=== PATIENT | female | born 1945 | race Caucasian/White ===

== ENCOUNTER → 2024-10-13 | Outpatient (CLI) | payer OTHER, SELFPAY | END | disposition home or self-care (01) | LOC: SWHD 14:56 | PROVIDERS: PCP Family Medicine; Referring Provider Family Medicine; Visit Provider Student in an Organized Health Care Education/Training Program | DX: L97.821 Non-pressure chronic ulcer of other part of left lower leg limited to breakdown of skin (principal); L97.521 Non-pressure chronic ulcer of other part of left foot limited to breakdown of skin; L97.511 Non-pressure chronic ulcer of other part of right foot limited to breakdown of skin; S90.822A Blister (nonthermal), left foot, initial encounter; S91.104A Unspecified open wound of right lesser toe(s) without damage to nail, initial encounter; X58.XXXA Exposure to other specified factors, initial encounter; E11.621 Type 2 diabetes mellitus with foot ulcer; E11.22 Type 2 diabetes mellitus with diabetic chronic kidney disease; N18.9 Chronic kidney disease, unspecified; M25.551 Pain in right hip | CPT/HCPCS: 97597; 11042; A9270 ==

== ENCOUNTER → 2024-10-21 | Outpatient (CLI) | payer OTHER, SELFPAY | END | disposition home or self-care (01) | LOC: SWHD 14:10 | PROVIDERS: PCP Family Medicine; Referring Provider Family Medicine; Visit Provider Student in an Organized Health Care Education/Training Program | DX: L97.521 Non-pressure chronic ulcer of other part of left foot limited to breakdown of skin (principal); L97.511 Non-pressure chronic ulcer of other part of right foot limited to breakdown of skin; S90.822A Blister (nonthermal), left foot, initial encounter; S91.104A Unspecified open wound of right lesser toe(s) without damage to nail, initial encounter; X58.XXXA Exposure to other specified factors, initial encounter; E11.621 Type 2 diabetes mellitus with foot ulcer; E11.22 Type 2 diabetes mellitus with diabetic chronic kidney disease; N18.9 Chronic kidney disease, unspecified; M25.551 Pain in right hip | CPT/HCPCS: 97597; A9270 ==

== ENCOUNTER 2024-10-26 08:19 | Day surgery (SDC) | payer OTHER, SELFPAY ==
[2024-10-26] VITALS (18 sets, daily range): BP systolic 114–147; BP diastolic 75–95; PULSE 61–76; RESP 14–22; TEMP 36.3–36.6; O2SAT 90–96; BMI 22.7
--- NOTE | 2024-10-26 07:00 | EKG_ITS ---
[facility] Test Date: 2024-10-26 Pat Name: SAMUEL DALAL Department: Room: - Gender: Female Donation Specialist: FIDEL : 1945 Requested By: Veronica Rodriguez Order Number: [id number] Reading MD: Veronica Rodriguez Measurements Intervals [place] Rate: 71 P: 97 NC: 175 QRS: -52 QRSD: 165 T: 101 QT: 489 QTc: 534 Interpretive Statements SINUS RHYTHM WITH OCCASIONAL SUPRAVENTRICULAR PREMATURE COMPLEXES MARKED LEFT AXIS DEVIATION LEFT BUNDLE BRANCH BLOCK Compared to ECG 06/25/2024 20:24:14 Left-axis deviation now present Left bundle-branch block now present Atrial-paced complex(es) or rhythm no longer present Ventricular-paced complex(es) or rhythm no longer present /store/S0/[id number].pdf
[2024-10-26 08:44] LABS: Basophils % (Auto) 1 % (0-2.5); Eosinophils # (Auto) 0.1 Thou/mm3 (0.0-0.5); Eosinophils % (Auto) 1 % (0-10); Hematocrit 40.6 % (36.0-46.0); Immature Granulocytes % (Auto) 2 % (0-0); Immature Granulocytes Auto 0.15 Thou/mm3 (0.00-0.00); Lymphocytes # (Auto) 0.7 Thou/mm3 (1.0-4.8); Lymphocytes % (Auto) 8 % (10-50); Mean Corpuscular Hemoglobin 25.6 pg (25.0-35.0); Mean Corpuscular Volume 80 fL (80-100); Monocytes # (Auto) 0.6 Thou/mm3 (0.0-0.8); Monocytes % (Auto) 7 % (0-12); Neutrophils # (Auto) 6.7 Thou/mm3 (1.8-7.7); Neutrophils % (Auto) 81 % (37-80); Nucleated Red Blood Cell % 0 /100 WBC (0); Platelet Count 262 Thou/mm3 (140-440); RDW Standard Deviation 61.5 fL (36.4-46.3); Red Blood Count 5.08 Miln/mm3 (4.00-5.20); White Blood Count 8.3 Thou/mm3 (3.6-11.0)
[2024-10-26 08:59] LABS: Anion Gap 8 (7-16); BUN/Creatinine Ratio 33 Ratio (12-20); Blood Urea Nitrogen 40 mg/dL (9-23); Calcium 9.9 mg/dL (8.3-10.6); Carbon Dioxide 27.4 mMol/L (20.0-31.0); Chloride 98 mMol/L (98-107); Creatinine (Component) 1.2 mg/dL (0.6-1.3); Glucose 317 mg/dL (74-106); Osmolality,Calculated 288 (275-295); Potassium 4.4 mMol/L (3.4-5.1); Sodium 133 mMol/L (136-145); eGFR 47 See Note
[2024-10-26] MEDS: SODIUM CHLORIDE 0.45 % 500 ML 50 ML IV (12:00)
[2024-10-26] MEDS: FUROSEMIDE INJ 10 MG/ML 4ML VIAL 40 MG IVP (14:15)
--- NOTE | 2024-10-26 15:15 | PC.NURSE ---
FEMORAL SHEATH (VENOUS ACCESS) TO THE RIGHT GROIN AREA REMOVED ABOUT 1500. MANUAL PRESSURE APPLIED FOR ABOUT 15 MINUTES UNTIL HEMOSTASIS ACHIEVED. PATIENT TOLERATED PROCEDURE WELL WITHOUT COMPLICATIONS. SURGICAL SITE ASYMPTOMATIC, NO ACTIVE BLEEDING, NO HEMATOMA NOTED ON RIGHT GROIN AREA. RIGHT FEMORAL PULSE NOTED WITH NO CHANGES IN STRENGHT AND QUALITY (normal upon palpation), RIGHT DORSALIS PEDIS PULSE NOTED WITH NO CHANGES STRENGHT AND QUALITY (weak with Doppler). DISTAL CAPPILARRY REFILL >3 SECONDS (Baseline, Right Toes). NO NOTED CHANGES IN COLOR OR TEMPERATURE ON RIGHT LOWER EXTREMITY. PATIENT DENIES GENERAL AND LOCALIZED PAIN. NO TINGLING OR NUMBNESS FELT TO RIGHT LOWER EXTREMITY. SURGICAL SITE COVERED WITH 4x4 GAUZE AND TAGADERM DRESSING. WILL CONTINUE TO MONITOR.
--- NOTE | 2024-10-26 16:00 | PC.NURSE ---
TR band removed at this time. Surgical site has a bruised about 3 cm x 1.5 cm with no changes, no active bleeding, no hematoma noted on right upper extremity or around the surgical site. Capillary refill < 3 seconds. no noted changes in color or temperature on right upper extremity. Patient denies general and localized pain, no loss in sensation, no tingling or numbness felt to right upper extremity. Tagaderm and Coban wrap applied. Will continue to monitor
--- NOTE | 2024-10-26 16:46 | PC.NURSE ---
SURGICAL SITE TO RIGHT GROIN AREA REMAINS ASYMPTOMATIC, NO ACTIVE BLEEDING, NO HEMATOMA NOTED ON RIGHT GROIN AREA. RIGHT FEMORAL PULSE NOTED WITH NO CHANGES IN STRENGHT AND QUALITY UPON PALPATION (normal), RIGHT DORSALIS PEDIS PULSE NOTED WITH NO CHANGES STRENGHT AND QUALITY (weak with Doppler). DISTAL CAPPILARRY REFILL >3 SECONDS (Baseline, Right Toes). NO NOTED CHANGES IN COLOR OR TEMPERATURE ON RIGHT LOWER EXTREMITY. PATIENT DENIES GENERAL AND LOCALIZED PAIN. NO TINGLING OR NUMBNESS FELT TO RIGHT LOWER EXTREMITY. NO LOSS IN SENSATION TO RIGHT LOWER EXTEREMITY SURGICAL SITE COVERED WITH GAUZE AND TAGADERM DRESSING, WHICH REMAINS IN PLACE, DRY, AND INTACT.
--- NOTE | 2024-10-27 14:07 | ESOP_ITS ---
RE: SAMUEL DALAL : 1945 DATE OF OPERATION: 10/27/2024 PROCEDURE PERFORMED: 1. Diagnostic right and left heart cardiac catheterization, selective coronary angiogram, left ventricular angiogram, CPT code 17886. 2. PCI, PTCA, and stent placement of the left circumflex artery, placement of drug-eluting stent, 3.0 x 20 mm Synergy stent, post stent deployment angioplasty using a 3.5 mm noncompliant NC balloon, pre-procedure stenosis 90%, post procedure stenosis 0%, pre-procedure BROWN flow was 3, post procedure BROWN flow 3, CPT code 03445. 3. Conscious sedation 1-hour duration. 4. TR band application. DIAGNOSIS: Coronary artery disease, abnormal nuclear stress test, ischemic cardiomyopathy, congestive heart failure. HISTORY AND INDICATIONS: The patient is a 78-year-old female with a longstanding history of cardiomyopathy, congestive heart failure, initially nonischemic cardiomyopathy, ICD implantation, was doing well until recently she is having chest pain, shortness of breath, recommended to have cardiac clearance for surgery and nuclear scan was performed showed evidence of inferolateral ischemia. Coronary angiogram was recommended to assess if the patient is a candidate for coronary intervention and revascularization. DESCRIPTION OF PROCEDURE: The patient brought to cardiac catheterization laboratory where she was given 2 mg of versed, 50 mcg of fentanyl for sedation. Right radial approach taken for left heart catheterization, right femoral approach for right heart catheterization. Right femoral vein was cannulated via a micropuncture technique and a 7-Tunisian venous sheath was introduced. Right radial artery cannulated with micropuncture technique after 1% Xylocaine 6-Tunisian glide justin introduced. Right heart catheterization was performed with [place]-Jessica catheter. Right heart pressure is measured. Left heart catheterization is performed by TIG4 5-Tunisian diagnostic catheter. Left ventricular angiogram performed subsequently. Selective right and left coronary angiogram performed by FR4 diagnostic catheter and TIG4 diagnostic catheter. Diagnostic procedure showed following findings: Right coronary artery is large and dominant showed mild irregularities. No significant stenosis. Left coronary system; left main coronary artery is normal. Left anterior descending artery showed mild to moderate plaque with 20% to 30% narrowing. Left circumflex artery showed evidence of 90% stenosis of the proximal left circumflex artery sequenced lesion. Distal circumflex showed mild left atherosclerotic plaque. Following the diagnostic procedure: Intervention was undertaken. Right heart catheterization showed following findings: Right atrial pressure was found to be mildly elevated at 14 mmHg, right ventricular pressure 56/15 mmHg, pulmonary artery pressure 57/24 mmHg, mean pressure 37 mmHg, pulmonary artery wedge pressure 18 mmHg. Left ventricular pressure 124/4, EDP 13 mmHg, aortic pressure 125/64. No gradient across the aortic valve. Left ventricular angiogram showed evidence of severe global hypokinesis, ejection fraction of 30%. Following diagnostic procedures; intervention was undertaken for single vessel CAD. The patient was given IV heparin, total of 5000 units. ACT was therapeutic. Aspirin and Brilinta loading dose was given, 180 mg Brilinta, 325 aspirin given. Proceed with PCI. A 6-Tunisian FL4 guiding catheter used to cannulate left main coronary artery and a 0.014 Runthrough guidewire was used to cross the lesion in the proximal circumflex artery successfully. Initially, pre-dilation was done with 2.5 mm x 12 mm Emerge balloon. Subsequently, 3.0 x 20 mm Synergy stent was deployed in the proximal left circumflex artery with two inflations and subsequently 3.5 mm noncompliant balloon. 3.5 x 12 balloon was used to dilate the proximal three-quarters of stent with 3.5 mm stent. 3.5 NC balloon was 15 atmosphere pressure. Final angiogram showed widely patent left circumflex artery. No residual stenosis. Pre-procedure BROWN flow was 3. SUMMARY OF FINDINGS: 1. Ischemic cardiomyopathy with severe LV dysfunction. Ejection fraction 30%. 2. Congestive heart failure with moderate pulmonary hypertension, group 2 due to heart failure. 3. Biventricular failure with elevated right atrial pressure pressures. 4. Single vessel coronary artery disease with evidence of 90% stenosis left circumflex artery, underwent successful PCI stent and placement of drug-eluting. Pre-procedure stenosis 90%, post procedure 0%, pre-procedure BRWON flow 3, post-procedure BROWN flow 3. COMPLICATIONS: None. ESTIMATED BLOOD LOSS: Less than 5 mL. PLAN: The patient will be given dual antiplatelet drug therapy, aspirin and Brilinta for the next 12 months. Surgery cannot be done for at least 6 months. DT: 12:47:50 TT: 13:47:00 Ref: [id number] - TID: [id number] [facility]
== END 2024-10-26 17:21 | disposition home or self-care (01) ==
PROVIDERS: PCP Nurse Practitioner Family; Referring Provider Internal Medicine Cardiovascular Disease; Visit Provider Internal Medicine Cardiovascular Disease
PROC: (CPT 93460; principal; 2024-10-26 11:30)
DX: I25.118 Atherosclerotic heart disease of native coronary artery with other forms of angina pectoris (principal); I25.5 Ischemic cardiomyopathy; I27.22 Pulmonary hypertension due to left heart disease; I42.8 Other cardiomyopathies; I50.82 Biventricular heart failure; I11.0 Hypertensive heart disease with heart failure; E78.5 Hyperlipidemia, unspecified; E11.9 Type 2 diabetes mellitus without complications; Z01.810 Encounter for preprocedural cardiovascular examination
CPT/HCPCS: 93460; C9600; 36415; 80048; 85025; 85347; 85610; 85730; 93005; 99152; 99153; A4649; C1725; C1769; C1874; C1887; C1894; J0171; J0461; J1643; J1940; J2250; J2310; J2371; J3010; J3490; J7040; Q9967; A9270; J1644; J2305

== ENCOUNTER 2024-10-29 13:24 | Outpatient (AMB) | payer OTHER, SELFPAY ==
--- NOTE | 2024-10-29 13:30 | PD.RESCLINIC ---
Allergies/Meds Allergies & Medications Allergies Penicillins Allergy (Severe, Verified 10/29/24 13:30) UNKNOWN Sulfa (Sulfonamide Antibiotics) Allergy (Severe, Verified 10/29/24 13:30) Swelling Medication Reconciliation donepezil 10 mg tablet 10 mg PO QPM 09/05/21 [History Confirmed 10/29/24] metformin 500 mg tablet 500 mg PO BID 09/05/21 [History Confirmed 10/29/24] metoprolol succinate 25 mg tablet,extended release 24 hr 25 mg PO QDAY 02/27/24 [History Confirmed 10/29/24] amiodarone 200 mg tablet 200 mg PO BID 30 days #60 tabs 04/30/24 [Rx Confirmed 10/29/24] magnesium oxide 400 mg (241.3 mg magnesium) tablet 400 mg PO QDAY 30 days #30 tabs 04/30/24 [Rx Confirmed 10/29/24] doxycycline monohydrate 100 mg capsule 100 mg PO BID #14 caps 06/25/24 [Rx Confirmed 10/29/24] aspirin 81 mg chewable tablet 81 mg PO QDAY #30 tabs 10/26/24 [Rx Confirmed 10/29/24] ciprofloxacin HCl 500 mg tablet 500 mg PO BID 10/26/24 [History Confirmed 10/29/24] nitrofurantoin 100 mg capsule 100 mg PO BID 10/26/24 [History Confirmed 10/29/24] spironolactone 25 mg tablet 25 mg PO QDAY 10/26/24 [History Confirmed 10/29/24] ticagrelor 90 mg tablet (Brilinta) 90 mg PO BID #60 tabs 10/26/24 [Rx Confirmed 10/29/24] hydrocodone 7.5 mg-acetaminophen 325 mg tablet 1 tab PO BID PRN pain 30 days #60 tabs 10/29/24 [Rx] MA Intake Visit Data Collection New Patient or Established: Established Patient (seen at [facility] within 3 years) Seen by Clinical Staff ONLY (RN/MA): No Pain Present Currently: Yes Pain Location: Generalized Pain scale:: 3 Pain Scale Used: Marquez-Addison/Numerical PCP or OBGYN visit in last 3 months: Yes Smoking Status Smoking Status: Former smoker For Televisit only Telemed Video/Phone Visit: Yes Verbal consent obtained for Telemed visit?: Yes Verbal Consent witness name: ROSIE Telemed Video/Phone visit w/Clinical Staff: 21-30 min Immunization / Flu Flu Vaccine in the Last 12 Months: Yes Flu Vaccine Exclusion Criteria: Already Received Past Medical History Past Medical History NEUROLOGIC: Positive Dementia; Negative Neurological Disorders CARDIAC: Positive Cardiac Disorders, Cardiac Arrhythmia, Atrial Fibrillation, Heart Murmur, Coronary Artery Disease, Peripheral Vascular Disease, Hypercholesterolemia, Congestive Heart Failure, Cardiomyopathy and Hypertension RESPIRATORY: Positive Chronic Obstructive Pulmonary Disease (COPD), Smoking, Smoking Cessation Counseling and Tobacco Use; Negative Asthma GASTROINTESTINAL: Negative Gastrointestinal Disorders GENITOURINARY: Negative Genitourinary Disorders or Renal Disease ENDOCRINE: Positive Endocrine Disorders and Diabetes Mellitus Type 2 (Metformin); Negative Diabetes Mellitus Type 1 HEMATOLOGIC: Negative Blood Disorders or Sickle Cell Disease Surgical History SURGICAL: Positive Pacemaker, Ear Surgery, Tonsillectomy and Hysterectomy; Negative Cardiac Surgery, Endocrine Surgery, Abdominal Surgery, Nephrectomy or Neurologic Surgery Social History SMOKING STATUS: Smoking status: Former smoker PACK YEARS: Pack-Years: 65 SECOND HAND EXPOSURE: second hand exposure: No ALCOHOL: Alcohol Intake: Former ALCOHOL FREQUENCY: Alcohol Intake Frequency: holidays/special occasions only HOUSING: Housing: Apartment LIVES WITH: Lives With: Alone Patient Kathie Royal Social History Living Situation History Housing: Apartment Housing Other:: pt lives alone Tobacco History Smoking Status: Former smoker Packs per Day: 2 Pack-Years: 65 Second Hand Smoke Exposure: No Alcohol History Alcohol Intake: Former Alcohol Intake Frequency: holidays/special occasions only Substance Use History Substance Use: meth Review of Systems Report any current symptoms Only answer those that you have currently: Past Medical History Past Medical History Have you ever been diagnosed with any of the following: Neurological Problems Dementia: Yes Cardiology Problems Cardiac Arrhythmia: Yes Atrial Fibrillation: Yes Heart Murmur: Yes Coronary Artery Disease: Yes Peripheral Vascular Disease: Yes Hypercholesterolemia: Yes Congestive Heart Failure: Yes Cardiomyopathy: Yes Hypertension: Yes Respiratory Problems Chronic Obstructive Pulmonary Disease (COPD): Yes Asthma: No Smoking: Yes Smoking Cessation Counseling: Yes Tobacco Use: Yes Genital/Urinary Problems Renal Disease: No Endocrine Problems Diabetes Mellitus Type 1: No Diabetes Mellitus Type 2: Yes (Metformin) Blood Problems Sickle Cell Disease: No Surgical History Hysterectomy: Yes Pacemaker: Yes History of Present Illness HPI Narrative 78y/o F w/ osteoarthritis, chronic T4 compression fracture with kyphosis was initially scheduled for an in-person appointment, however due to vehicle problems, patient changed visit to a tele visit. She consented for the televisit. Patient requested refill of norco for chronic back pain. CURES was checked and patient had her last refill on 09/28/2024. Additionally, patient reported she underwent cardiac cath on 10/27, with PURVI placed. She was discharged on ASA/Brilinta and will follow with cardiology outpatient. For ROS, patient endorses SOB, which is chronic, and she is stable on 2L home O2. Also reports skin rash that is resolving. Remainder of ROS was negative. Review of Systems Review of Systems Systems Reviewed: All systems reviewed, normal except as documented Objective/Exam Narrative Physical exam: televisit Assessment & Plan Diagnosis / Problem List (1) Chronic back pain greater than 3 months duration: Status: Chronic Assessment & Plan: Patient requesting refill of norco for chronic back pain Plan: Checked CURES Refilled norco 7.5mg 1 tab BID prn Plan Refilled norco Additional Assessment Attending note: I, Matthew Wilkes MD, attest that I was physically present for the bloom portions of the service completed via telehealth, and I reviewed and discussed the case with the resident and agree with the resident's plans of care as documented above. Telehealth visit. Refill of chronic narcotic pain medication given for chronic back pain. Patient has been on this dose for some time. No evidence of overuse or abuse. Cures report reviewed. Prescription refilled today. Matthew Wilkes MD Advanced Care Planning Advance care planning discussed with:: patient Physician Billing Established Patient Established Patient: E/M Level 2-CPT 59780 Office Procedures [facility] Level of Care Nursing/Assessment Patient Status: Established Patient Nursing Assessment/Reassessment: Medication Reconciliation and Update PMH in EMR Coordination of Care: Complex Care and Chronic Disease 1-5, Education Complex Pt/Fam and Staff clarify orders Established Patient Charge Established Patient Point Assignment: 70 Telehealth Telemed Phone/Video with patient at home & Dr,PA,MORTGAGE LOAN CLOSER: Yes
== END 2024-10-29 15:23 | disposition home or self-care (01) ==
LOC: HODAHC 13:24
PROVIDERS: Supervising Provider Internal Medicine; Visit Provider Student in an Organized Health Care Education/Training Program
DX: M54.9 Dorsalgia, unspecified (principal); G89.29 Other chronic pain; Z76.0 Encounter for issue of repeat prescription
CPT/HCPCS: 99212; G0463

== ENCOUNTER → 2024-10-30 | Outpatient (CLI) | payer OTHER, SELFPAY | END | disposition home or self-care (01) | LOC: SWHD 12:13 | PROVIDERS: PCP Family Medicine; Referring Provider Family Medicine; Visit Provider Surgery | DX: I87.333 Chronic venous hypertension (idiopathic) with ulcer and inflammation of bilateral lower extremity (principal); L97.821 Non-pressure chronic ulcer of other part of left lower leg limited to breakdown of skin; L97.521 Non-pressure chronic ulcer of other part of left foot limited to breakdown of skin; L97.516 Non-pressure chronic ulcer of other part of right foot with bone involvement without evidence of necrosis; S90.822A Blister (nonthermal), left foot, initial encounter; S91.104A Unspecified open wound of right lesser toe(s) without damage to nail, initial encounter; X58.XXXA Exposure to other specified factors, initial encounter; E11.621 Type 2 diabetes mellitus with foot ulcer; E11.22 Type 2 diabetes mellitus with diabetic chronic kidney disease; N18.2 Chronic kidney disease, stage 2 (mild); M25.551 Pain in right hip | CPT/HCPCS: 11042; A9270 ==

== ENCOUNTER 2025-01-06 05:33 | Emergency (ER) | payer OTHER, SELFPAY ==
[2025-01-06 05:41] VITALS: BP 119/66; PULSE 78; RESP 19; TEMP 36.6; O2SAT 95
[2025-01-06 05:42] VITALS: BMI 17.5
[2025-01-06 05:50] VITALS: PULSE 74; RESP 18; O2SAT 97
--- NOTE | 2025-01-06 06:26 | EDNOTE_ITS ---
<Statement entered by Stephanie Rocha MD - 01/14/25 19:35> I, Stephanie Rocha MD, have reviewed the history, exam, and assessment of the patient. I have evaluated the patient independently and agree with the plan of care documented by [ ]. All diagnostic studies were reviewed and discussed. I confirm the diagnosis as documented by the Resident. I was present during the Medical Decision Making for this patient. The patient's plan of care was created between myself and the Resident and consistent with our discussion of the patient's case. ED Epistaxis RME/HPI General Chief complaint: General [facility] Complain Stated complaint: NOSE BLEED Time Seen by Provider: 01/06/25 06:18 Arrival date/time: 01/06/25 05:33 RME / HPI RME / HPI Narrative: Patient is a 79-year-old female with past medical history of primary hypertension, diabetes mellitus type II, hyperlipidemia, 4cm thoracic aortic aneurysm, dilated cardiomyopathy HFrEF 25% s/p defibrillator followed by cardiology Dr. Pitts, & chronic atrial fibrillation on Eliquis, COPD/asthma on home O2 PRN 2/2 chronic tobacco use (>30 yrs), NIDDM2, dementia, osteoarthritis, chronic T4 compression fracture with kyphosis, left fibular fracture (March 2023), left hip fracture s/p replacement, chronic tremor, & anxiety/depression who presents today from [facility] due to epistaxis starting today. Patient reports she has daily problems with nose bleed but usually they are able to be controlled. Patient completely denies any manipulation or the nares, blowing of the nose, falls, or trauma. Denies lightheadedness, dizziness. Patient works with physical therapy at her facility and is ambulatory with a walker with assistance but spends most of the time in bed. Patient states she was recently hospitalized at [facility] for pneumonia and was discharged to [facility]. complaint: epistaxis Location: bilateral nostril Onset (ago): hour(s) Duration: constant Context: aspirin use and other anticoagulant use Treatment prior to arrival: nose pinching and stuffed nose with tissue Related Data Home Medications ?Medication ?Instructions ?Recorded ?Confirmed donepezil 10 mg tablet 10 mg PO QPM 09/05/21 metformin 500 mg tablet 500 mg PO BID 09/05/2110/29 Held on 10/26/24. Instructions: Resume on 10/28/24. Resume this medication on this date at your usual time metoprolol succinate 25 mg 25 mg PO QDAY 02/27/2404/17 tablet,extended release 24 hr ciprofloxacin HCl 500 mg tablet 500 mg PO BID 10/26/24 10/29/24 nitrofurantoin 100 mg capsule 100 mg PO BID 10/26/24 1 12/30/23 spironolactone 25 mg tablet 25 mg PO QDAY 10/26/2404/17 Previous Rx's ?Medication ?Instructions ?Recorded amiodarone 200 mg tablet 200 mg PO BID 30 days #60 ta bs 04/30/24 magnesium oxide 400 mg (241.3 mg 400 mg PO QDAY 30 day s #30 tabs 04/30/24 magnesium) tablet doxycycline monohydrate 100 mg 100 mg PO BID #14 caps 06/25/24 capsule aspirin 81 mg chewable tablet 81 mg PO QDAY #30 tabs 1 12/27/23 ticagrelor 90 mg tablet (Brilinta) 90 mg PO BID #60 ta bs 10/26/24 Allergies Allergy/AdvReac Type Severity Reaction Status Date / Time Penicillins Allergy Severe UNKNOWN Verified 10/29/24 13:30 Sulfa (Sulfonamide Allergy Severe Swelling Verified 10/29/24 13:30 Antibiotics) Review of Systems Review of Systems Systems Reviewed: All systems reviewed, normal except as documented Past Medical History Past Medical History Comments PMH COMMENT: Past Medical History: Hypertension, type 2 diabetes, hyperlipidemia, 4 cm thoracic aortic aneurysm, dilated cardiomyopathy HFrEF 25% s/p defibrillator followed by cardiology Dr. Pitts, & chronic atrial fibrillation on Eliquis, COPD/asthma on home O2 PRN 2/2 chronic tobacco use (>30 yrs), NIDDM2, dementia, osteoarthritis, chronic T4 compression fracture with kyphosis, left fibular fracture (March 2023), left hip fracture s/p replacement, chronic tremor, & anxiety/depression Family History: Negative for known bleeding disorders Surgical History: Left hip replacement, defibrillator placement, tonsillectomy, hysterectomy, ear surgery Social History: Former smoker with 64 pack year history quit in the past year, denies current alcohol use, former meth use denies current recreational drug use Current Medications: Unable to confirm at this time, did not receive medication list from [facility] [facility] Allergies: Penicillins, sulfa antibiotics - swelling ED Exam Narrative Physical exam: Physical Exam General: Awake and in no acute distress, thin and malnourished elderly female. Conversational and non-toxic appearing. HEENT: Normocephalic, atraumatic, mucous membranes moist. Dry blood in back of oropharynx. Nares packed with gauze and oozing blood. Heart: Regular rate and rhythm, no murmurs. Lungs: Clear to auscultation with no wheezing or crackles. Abdomen: Soft, nondistended, nontender, positive bowel sounds. ?No guarding or rebound tenderness. Neurologic: Alert and oriented x3, no gross neurological deficit, and patient able to move all 4 extremities. Extremities: No edema. Skin: No rash or ecchymoses. Course Quality Measures none Orders Category Date Time Status Partial Thromboplastin Time Stat Lab 01/06/25 06:40 Completed Prothrombin Time with INR Stat Lab 01/06/25 06:40 Completed Oxymetazoline [place] 0.05% [Afrin Nasal Philip] Med 01/06/25 06:44 Discontinued See Dose Instructions NASAL X1 ONE Vital Signs Vital signs: Vital Signs Temperature 97.9 F 01/06/25 05:41 Pulse Rate 78 01/06/25 05:41 Respiratory Rate 19 01/06/25 05:41 Blood Pressure 119/66 01/06/25 05:41 Pulse Oximetry (%) 95 01/06/25 05:41 Oxygen Delivery Method Room Air 01/06/25 05:41 Epistaxis MDM Narrative MDM Narrative:: Patient was instructed to hold pressure just below the bridge of the nose. Patient was administered Afrin in order to induce vasoconstriction. Gauze was packed into the nares until bleeding stopped, then it was retracted after the patient was observed for a few hours. Patient data External records reviewed:: [facility] previous records and [facility] records Clinical information provided by:: patient Social determinants that could affect healthcare access:: housing Patient has the following chronic illnesses:: As above How is presenting disease/condition affected by chronic disease/condition?: caused by Evaluation data The following diagnostics were reviewed and interpreted by me:: lab results Lab and/or radiology exams considered but not ordered:: Ordered Interpretation Summary: PT PTT and INR were ordered to ensure no coagulopathy which came normal range. Medications / Prescriptions Medications or Prescriptions considered but not ordered:: Given Medication administrations:: Medication Administration History Discontinued Medications Oxymetazoline HCl (Oxymetazoline [place] 0.05% 15 Ml Btl) 0 spray NASAL X1 ONE Stop: 01/06/25 06:45 Last Admin: 01/06/25 06:57 Dose: 1 spray Documented By: SF Given Consultations Consultation(s) initiated? (list below): No Diagnosis Epistaxis Differential Diagnosis: anterior epistaxis and posterior epistaxis Most likely diagnosis given after review of the tests above:: Epistaxis Admission Indicated Admission indicated?: not indicated Explain why admission is indicated or not indicated:: Bleeding was controlled Admission Request Was there a request for admission?: No Disposition Plan Disposition Plan: Discharge Discharge Attestation Discharge Attestation: The patient and all family members were given an opportunity to ask questions and understood the discharge instructions. Discharge instructions specifically effects, indications for sooner follow up or return to the emergency department, and the expected course of current diagnosis. Patient condition: Stable Discharge Plan Plan Patient Disposition: [facility] ([place]) Disposition Comment: Back to [facility] Patient condition on transfer: Stable Prescriptions/Referrals Prescriptions/Med Rec: No Action metformin 500 mg tablet 500 mg PO BID Patient Comments: TAKE 1 TABLET BY MOUTH TWICE DAILY donepezil 10 mg Tablet 10 mg PO QPM metoprolol succinate 25 mg tablet extended release 24 hr 25 mg PO QDAY Patient Comments: TAKE ONE TABLET BY MOUTH WITH FOOD EVERY DAY FOR BLOOD PRESSURE nitrofurantoin 100 mg Capsule 100 mg PO BID Rx Instructions: must administer with a meal/food ciprofloxacin HCl 500 mg Tablet 500 mg PO BID spironolactone 25 mg Tablet 25 mg PO QDAY aspirin 81 mg Tablet,Chewable 81 mg PO QDAY Qty: 30 5RF Brilinta 90 mg Tablet 90 mg PO BID Qty: 60 5RF magnesium oxide 400 mg (241.3 mg magnesium) tablet 400 mg PO QDAY 30 Days Qty: 30 2RF amiodarone 200 mg tablet 200 mg PO BID 30 Days Qty: 60 2RF doxycycline monohydrate 100 mg capsule 100 mg PO BID Qty: 14 0RF Referrals: Nancy Obando [facility] [Primary Care Provider] - In 1 week Problem List Clinical Impression: Epistaxis Patient/Caregiver Discharge Instructions Discharge Activity: as per physical therapy and activity as tolerated Education Materials: Nosebleed, ED Epistaxis (Adult) Additional Instructions: Ella was seen in the ED for nosebleed, or epistaxis. Interventions done include having the patient hold pressure just beneath the nasal bridge and gauze packing of the nares until bleeding stopped. She was given a dose of Afrin (oxymetolazone) nasal spray to induce vasocontriction and help reduce bleeding which appeared to help. This spray can be used if the bleeding recurs. Please ensure the area below the nasal bridge has pressure held as well. Ella should try to avoid blowing her nose, coughing, or any manual manipulation of the nose as much as possible today. Try using warm humidified air to prevent further episodes of epistaxis and keep the nares moisturized in the future. Return to the ED if recurrent epistaxis occurs without remission. Print Language: Chinese Stand Alone Forms: [facility] Info., Patient Portal Info Letter
[2025-01-06 06:46] VITALS: BP 112/58; PULSE 103; RESP 17; TEMP 36.6; O2SAT 93
[2025-01-06] MEDS: OXYMETAZOLINE NAS SPRY 0.05% 15 ML BTL NASAL (06:57)
[2025-01-06 07:25] LABS: Partial Thromboplastin Time 22.6 Seconds (22.0-36.0); Prothrombin Time 10.7 Seconds (9.0-12.2)
[2025-01-06 10:44] VITALS: BP 125/73; PULSE 70; RESP 20; TEMP 36.8; O2SAT 96
--- NOTE | 2025-01-06 11:05 | PC.CC ---
ASWLisa was consulted regarding transportation back to [facility] for patient. ASW arranging transportation for patient back to [facility] via [facility].
[2025-01-06 12:23] VITALS: BP 136/69; PULSE 74; RESP 26; TEMP 36.3; O2SAT 95
--- NOTE | 2025-01-06 12:38 | PC.CC ---
ASWLisa was contacted by [facility] who reports that patient cannot be picked up and transported until 1900. ASW obtained an FRIDA for [facility] to arrange transportation. FRIDA was signed by template cutter Sara.
--- NOTE | 2025-01-06 14:25 | PC.NURSE ---
REPORT GIVEN TO LUIS GHOSH AT [facility].
== END 2025-01-06 14:27 | disposition skilled nursing facility (03) ==
PROVIDERS: Student in an Organized Health Care Education/Training Program; Emergency Provider Emergency Medicine; PCP Nurse Practitioner Family
DX: R04.0 Epistaxis (principal); I11.0 Hypertensive heart disease with heart failure; I42.0 Dilated cardiomyopathy; I50.20 Unspecified systolic (congestive) heart failure; E11.9 Type 2 diabetes mellitus without complications; E78.5 Hyperlipidemia, unspecified; Z99.81 Dependence on supplemental oxygen; F03.90 Unspecified dementia, unspecified severity, without behavioral disturbance, psychotic disturbance, mood disturbance, and anxiety
CPT/HCPCS: 36415; 85610; 85730; 99283; A9270

== ENCOUNTER 2025-02-01 11:14 | Emergency (ER) | payer OTHER, SELFPAY ==
--- NOTE | 2025-02-01 11:29 | PD.EDWOUND ---
ED Wound/Laceration-RME/HPI General Chief Complaint: Wound/Laceration Stated Complaint: RIGHT LEG PAIN/LACERATION Time Seen by Provider: 02/01/25 11:20 Arrival date/time: 02/01/25 11:14 RME / HPI RME / HPI narrative: 79 yo female patient [facility] for skin tear to right kim. States she was transferring from the bed to the wheelchair when she somehow hit her right kim. Denies other injuries. Otherwise well. On Brilinta. Received Tylenol. Requesting more pain medicine. Related Data Home Medications ?Medication ?Instructions ?Recorded ?Confirmed donepezil 10 mg tablet 10 mg PO QPM 09/05/21 10/29/24 metformin 500 mg tablet 500 mg PO BID 09/05/21 10/29/24 Held on 10/26/24. Instructions: Resume on 10/28/24. Resume this medication on this date at your usual time metoprolol succinate 25 mg 25 mg PO QDAY 02/27/24 10/29/24 tablet,extended release 24 hr ciprofloxacin HCl 500 mg tablet 500 mg PO BID 10/26/24 10/29/24 nitrofurantoin 100 mg capsule 100 mg PO BID 10/26/24 10/29/24 spironolactone 25 mg tablet 25 mg PO QDAY 10/26/24 10/29/24 Previous Rx's ?Medication ?Instructions ?Recorded amiodarone 200 mg tablet 200 mg PO BID 30 days #60 tabs 04/30/24 magnesium oxide 400 mg (241.3 mg 400 mg PO QDAY 30 days #30 tabs 04/30/24 magnesium) tablet doxycycline monohydrate 100 mg 100 mg PO BID #14 caps 06/25/24 capsule aspirin 81 mg chewable tablet 81 mg PO QDAY #30 tabs 10/26/24 ticagrelor 90 mg tablet (Brilinta) 90 mg PO BID #60 tabs 10/26/24 Allergies Allergy/AdvReac Type Severity Reaction Status Date / Time Penicillins Allergy Severe UNKNOWN Verified 02/01/25 11:46 Sulfa (Sulfonamide Allergy Severe Swelling Verified 02/01/25 11:46 Antibiotics) Review of Systems Review of Systems Systems Reviewed: All systems reviewed, normal except as documented ED Exam Narrative Physical exam: GENERAL APPEARANCE: alert and oriented x 4, well-developed, well-nourished, no acute distress HEENT: Normocephalic, atraumatic LUNGS: No increased work of breathing, no respiratory distress HEART: Good peripheral perfusion ABDOMEN: non distended EXTREMITIES: 3.5 cm curvilinear laceration right kim; mild surrounding edema, no erythema, clean NEUROLOGIC: awake; alert and oriented x4; cranial nerves II-XII grossly intact PSYCHIATRIC: appropriate mood and affect SKIN: warm, dry, normal color; no rashes Course Quality Measures none Orders Category Date Time Status Irrigate Wound NOW Care 02/01/25 11:43 Active Set Up Suture Tray NOW Care 02/01/25 11:43 Active Wound Care NOW Care 02/01/25 11:43 Active Diet Cardiac Diet 02/01/25 Lunch Active HYDROcodone*/APAP 5/325 [[place]lin 5/325] Med 02/01/25 11:45 Discontinued 1 tab PO X1 ONE Lidocaine 1% 20 ml [Xylocaine 1% 20 ML] Med 02/01/25 11:42 Discontinued 10 ml INFL X1 ONE Late Tray Request Routine Oth 02/01/25 12:39 Active Vital Signs Vital signs: Vital Signs Temperature 97.7 F 02/01/25 11:33 Pulse Rate 85 02/01/25 11:33 Respiratory Rate 16 02/01/25 11:33 Blood Pressure 97/63 02/01/25 11:33 Pulse Oximetry (%) 98 02/01/25 11:33 Oxygen Delivery Method Room Air 02/01/25 11:33 Procedures -ED Laceration Laceration 1: Site: lower extremity Side (If applicable): right Size (cm): 4 Description: linear, flap and other (curvilinear) Depth: simple, single layer Local Anesthetic: lidocaine 1% Amount of anesthesia used (mL): 6 Pre-repair: wound explored, irrigated extensively and deep structures intact Skin layer closed with: other (ethilon) Size (cm): 3-0 Number of sutures: 1 Technique: running Wound / Laceration MDM Narrative MDM Narrative:: Laceration repair tolerated well. No complications. EBL 1mL. Patient data External records reviewed:: [facility] previous records Clinical information provided by:: patient Social determinants that could affect healthcare access:: none Patient has the following chronic illnesses:: HTN, COPD, PAD How is presenting disease/condition affected by chronic disease/condition?: uneffected by Evaluation data The following diagnostics were reviewed and interpreted by me:: other (specify) (none) Lab and/or radiology exams considered but not ordered:: none Interpretation Summary: none Medications / Prescriptions Medications or Prescriptions considered but not ordered:: none Medication administrations:: Medication Administration History Discontinued Medications Hydrocodone Bitart/Acetaminophen (Hydrocodone/Apap 5/325 Tablet) 1 tab PO X1 ONE Stop: 02/01/25 11:46 Last Admin: 02/01/25 11:58 Dose: 1 tab Documented By: HERIBERTO Lidocaine HCl (Lidocaine Hcl 1% 20 Ml Vial) 10 ml INFL X1 ONE Stop: 02/01/25 11:43 Last Admin: 02/01/25 11:59 Dose: 10 ml Documented By: HERIBERTO as above Consultations Consultation(s) initiated? (list below): No Diagnosis Wound Differential Diagnosis: laceration, abrasion and avulsion of skin Most likely diagnosis given after review of the tests above:: laceration Admission Indicated Admission indicated?: not indicated Admission Request Was there a request for admission?: No Disposition Plan Disposition Plan: Discharge Discharge Attestation Discharge Attestation: The patient and all family members were given an opportunity to ask questions and understood the discharge instructions. Discharge instructions specifically effects, indications for sooner follow up or return to the emergency department, and the expected course of current diagnosis. Patient condition: Stable Discharge Plan Plan Patient Disposition: Xfer Skilled Nsg Fac (SNF) Disposition Comment: [facility] Prescriptions/Referrals Prescriptions/Med Rec: No Action metformin 500 mg tablet 500 mg PO BID Patient Comments: TAKE 1 TABLET BY MOUTH TWICE DAILY donepezil 10 mg Tablet 10 mg PO QPM metoprolol succinate 25 mg tablet extended release 24 hr 25 mg PO QDAY Patient Comments: TAKE ONE TABLET BY MOUTH WITH FOOD EVERY DAY FOR BLOOD PRESSURE nitrofurantoin 100 mg Capsule 100 mg PO BID Rx Instructions: must administer with a meal/food ciprofloxacin HCl 500 mg Tablet 500 mg PO BID spironolactone 25 mg Tablet 25 mg PO QDAY aspirin 81 mg Tablet,Chewable 81 mg PO QDAY Qty: 30 5RF Brilinta 90 mg Tablet 90 mg PO BID Qty: 60 5RF magnesium oxide 400 mg (241.3 mg magnesium) tablet 400 mg PO QDAY 30 Days Qty: 30 2RF amiodarone 200 mg tablet 200 mg PO BID 30 Days Qty: 60 2RF doxycycline monohydrate 100 mg capsule 100 mg PO BID Qty: 14 0RF Referrals: Nancy Obando, [facility] [Primary Care Provider] - In 1 week Problem List Clinical Impression: Laceration of skin of right lower leg, Suture of skin wound Patient/Caregiver Discharge Instructions Education Materials: ED Laceration: All Closures, ED Scar Tips to Minimize Additional Instructions: Follow up with your doctor for wound recheck in 1-2 days and suture removal in 5-7 days. Print Language: Irish Stand Alone Forms: [facility] Info., Patient Portal Info Letter
[2025-02-01 11:33] VITALS: BP 97/63; PULSE 85; RESP 16; TEMP 36.5; O2SAT 98
[2025-02-01 11:36] VITALS: PULSE 101; RESP 18; O2SAT 97; BMI 18.7
[2025-02-01] MEDS: HYDROcodone/APAP 5/325 TABLET 1 TAB PO (11:58)
[2025-02-01] MEDS: LIDOCAINE HCL 1% 20 ML VIAL 10 ML INFL (11:59)
--- NOTE | 2025-02-01 12:40 | PC.NURSE ---
Patient states pain 9/10. Informed ER provider and received verbal order for 0.5mg hydromorphone.
--- NOTE | 2025-02-01 13:25 | PC.RT ---
Addendum entered by María Corbin 02/01/25 13:36: SS contacted [facility] to confirm if they can receive patient, Teresa confirmed patient may return. SS pending transportation ETA from [facility]. Original Note: SS informed by SHANNA Cooper and AUGIE Burch patient is needing transportation to [facility]. SS contacted [facility] [phone] to arrange transportation, ETA pending.
== END 2025-02-01 16:20 | disposition skilled nursing facility (03) ==
PROVIDERS: Emergency Provider Emergency Medicine; PCP Nurse Practitioner Family
DX: S81.811A Laceration without foreign body, right lower leg, initial encounter (principal); W22.8XXA Striking against or struck by other objects, initial encounter; Y93.89 Activity, other specified; Y92.122 Bedroom in nursing home as the place of occurrence of the external cause
CPT/HCPCS: 12002; 99283; J3490; A9270

== ENCOUNTER → 2025-04-02 | Outpatient (CLI) | payer OTHER, SELFPAY ==
--- NOTE | 2025-04-02 13:54 | XR_ITS ---
Examination: PA lateral chest 2 views TECHNIQUE: Upright PA lateral chest 2 views Exam date and time: April 02, 2025 1411 hours INDICATIONS: Chest pain beginning one week ago. FINDINGS: Mild enlargement left ventricle Cardiac leads satisfactory position Accentuation basilar bronchovascular markings. Increased AP dimension chest IMPRESSION: COPD Basilar bronchitis pattern
--- NOTE | 2025-04-02 13:54 | XR_ITS ---
Examination: Ribs, bilateral, with PA chest, 3 views Technique: Chest PA, RIBS AP, RPO, 3 views Exam date and time: April 02, 2025 1408 hours INDICATIONS: Bilateral rib pain beginning one week ago Findings: Mild to moderate enlargement left ventricle Cardiac leads satisfactory position No pneumonia or pneumothorax Moderate osteopenia No acute rib fractures IMPRESSION: No pneumothorax or pneumonia No acute rib fractures
[2025-04-02 15:29] LABS: Basophils # (Auto) 0.1 Thou/mm3 (0.0-0.2); Basophils % (Auto) 1 % (0-2.5); Eosinophils # (Auto) 0.2 Thou/mm3 (0.0-0.5); Eosinophils % (Auto) 2 % (0-10); Hematocrit 34.3 % (36.0-46.0); Hemoglobin 11.5 g/dL (12.0-16.0); Immature Granulocytes % (Auto) 2 % (0-0); Immature Granulocytes Auto 0.19 Thou/mm3 (0.00-0.00); Lymphocytes # (Auto) 1.3 Thou/mm3 (1.0-4.8); Lymphocytes % (Auto) 11 % (10-50); Mean Corpuscular HGB Conc 33.5 g/dl (31.0-37.0); Mean Corpuscular Hemoglobin 29.1 pg (25.0-35.0); Mean Corpuscular Volume 87 fL (80-100); Monocytes % (Auto) 9 % (0-12); Neutrophils # (Auto) 8.8 Thou/mm3 (1.8-7.7); Neutrophils % (Auto) 76 % (37-80); Nucleated Red Blood Cell % 0 /100 WBC (0); Platelet Count 406 Thou/mm3 (140-440); RDW Standard Deviation 44.7 fL (36.4-46.3); Red Blood Count 3.95 Miln/mm3 (4.00-5.20); White Blood Count 11.5 Thou/mm3 (3.6-11.0)
[2025-04-02 15:39] LABS: Glucose Estimated Average 169 mg/dL (80-131); Hemoglobin A1C 7.5 % Hgb (4.8-6.0)
[2025-04-02 15:42] LABS: Alanine Aminotransferase 14 U/L (10-49); Albumin, Serum 4.1 gm/dL (3.4-4.8); Albumin/Globulin Ratio 1.5 (1.2-2.2); Alkaline Phosphatase 185 U/L (46-116); Anion Gap 7 (7-16); Aspartate Amino Transferase 16 U/L (0-34); BUN/Creatinine Ratio 28 Ratio (12-20); Bilirubin,Total 0.6 mg/dL (0.3-1.2); Blood Urea Nitrogen 33 mg/dL (9-23); Calcium 8.8 mg/dL (8.3-10.6); Calcium (Corrected) 8.8 mg/dL (8.5-10.1); Carbon Dioxide 24.4 mMol/L (20.0-31.0); Cardiac Risk Estimate 4.5 RATIO (3.7-5.6); Chloride 102 mMol/L (98-107); Cholesterol 167 mg/dL (132-200); Creatinine (Component) 1.2 mg/dL (0.6-1.3); Globulin 2.7 gm/dL (2.3-3.5); Glucose 266 mg/dL (74-106); HDL Cholesterol 37 mg/dL (40-60); LDL Cholesterol,Calculated 109 mg/dL (0-130); Osmolality,Calculated 282 (275-295); Potassium 4.1 mMol/L (3.4-5.1); Sodium 133 mMol/L (136-145); Thyroid Stimulating Hormone 3.12 uIU/mL (0.55-4.78); Total Protein 6.8 gm/dL (5.7-8.2); Triglycerides 107 mg/dL (30-150); eGFR 46 See Note
== END | disposition home or self-care (01) ==
LOC: CDIM 13:52 → COPL 14:21
PROVIDERS: Registered Nurse; PCP Nurse Practitioner Family; Referring Provider Nurse Practitioner Family; Visit Provider Radiology Diagnostic Radiology
DX: J44.9 Chronic obstructive pulmonary disease, unspecified (principal); R07.82 Intercostal pain; Z00.00 Encounter for general adult medical examination without abnormal findings; I12.9 Hypertensive chronic kidney disease with stage 1 through stage 4 chronic kidney disease, or unspecified chronic kidney disease; E11.22 Type 2 diabetes mellitus with diabetic chronic kidney disease; N18.9 Chronic kidney disease, unspecified
CPT/HCPCS: 36415; 71046; 71111; 80053; 80061; 81001; 82043; 82570; 83036; 84443; 85025

== ENCOUNTER 2025-04-08 14:52 | Outpatient (AMB) | payer OTHER, SELFPAY ==
[2025-04-08 15:09] VITALS: BP 133/79; PULSE 85; RESP 16; TEMP 36.6; O2SAT 95; BMI 20.5
--- NOTE | 2025-04-08 15:09 | PD.RESCLINIC ---
Vital Signs 04/08/25 15:09 Height 1.63 m Height Method Stated Weight 54.658 kg Weight Measurement Method Standing Scale BMI 20.5 BP 133/79 H Blood Pressure Source Automatic Cuff Blood Pressure Location Left Upper Arm Position Sitting Respiration 16 Pulse 85 Pulse Source Monitor Temp 98 F Temp Source Oral Pulse Oximetry (%) 95 Oxygen Delivery Method Room Air Allergies/Meds Allergies & Medications Allergies Penicillins Allergy (Severe, Verified 05/04/25 13:46) UNKNOWN Sulfa (Sulfonamide Antibiotics) Allergy (Severe, Verified 05/04/25 13:46) Swelling Medication Reconciliation donepezil 10 mg tablet 10 mg PO QPM 09/05/21 [History Confirmed 05/04/25] metformin 500 mg tablet 500 mg PO BID 09/05/21 [History Confirmed 04/08/25] metoprolol succinate 25 mg tablet,extended release 24 hr 25 mg PO QDAY 02/27/24 [History Confirmed 05/04/25] magnesium oxide 400 mg (241.3 mg magnesium) tablet 400 mg PO QDAY 30 days #30 tabs 04/30/24 [Rx Confirmed 05/05/25] aspirin 81 mg chewable tablet 81 mg PO QDAY #30 tabs 10/26/24 [Rx Confirmed 05/04/25] spironolactone 25 mg tablet 25 mg PO QDAY 10/26/24 [History Confirmed 04/08/25] ticagrelor 90 mg tablet (Brilinta) 90 mg PO BID #60 tabs 10/26/24 [Rx Confirmed 05/04/25] hydrocodone 7.5 mg-acetaminophen 325 mg tablet 1 tab PO BID PRN pain #60 tabs 04/08/25 [Rx Confirmed 05/04/25] amiodarone 100 mg tablet 100 mg PO DAILY Atrial fibrilation 05/04/25 [History Confirmed 05/04/25] furosemide 40 mg tablet 40 mg PO DAILY Heart failure 05/04/25 [History Confirmed 05/04/25] dapagliflozin propanediol 10 mg tablet 10 mg PO QDAY 05/05/25 [History Confirmed 05/05/25] ipratropium 0.5 mg-albuterol 3 mg (2.5 mg base)/3 mL nebulization soln 3 ml inhalation Q4H PRN shortness of breath or wheezing #90 mL 05/06/25 [Rx] hydrocodone 7.5 mg-acetaminophen 325 mg tablet 1 tab PO BID PRN pain #10 tabs 05/07/25 [Rx] MA Intake Visit Data Collection New Patient or Established: Established Patient (seen at [facility] within 3 years) Seen by Clinical Staff ONLY (RN/MA): No Reason for Visit:: FOLLOW UP Pain Present Currently: Yes Pain Location: Leg Pain scale:: 9 Pain Scale Used: Marquez-Addison/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 Required: No PCP or OBGYN visit in last 3 months: Yes Hx Now: No Do You Feel Safe at Home: Yes Authorities Contacted: N/A Smoking Status Smoking Status: Never smoker Immunization / Flu Flu Vaccine in the Last 12 Months: Yes Flu Vaccine Exclusion Criteria: No Exclusion Criteria Past Medical History Past Medical History NEUROLOGIC: Positive Dementia; Negative Neurological Disorders CARDIAC: Positive Cardiac Disorders, Cardiac Arrhythmia, Atrial Fibrillation, Heart Murmur, Coronary Artery Disease, Peripheral Vascular Disease, Hypercholesterolemia, Congestive Heart Failure, Cardiomyopathy and Hypertension RESPIRATORY: Positive Chronic Obstructive Pulmonary Disease (COPD), Smoking, Smoking Cessation Counseling and Tobacco Use; Negative Asthma GASTROINTESTINAL: Negative Gastrointestinal Disorders GENITOURINARY: Negative Genitourinary Disorders or Renal Disease ENDOCRINE: Positive Endocrine Disorders and Diabetes Mellitus Type 2 (Metformin); Negative Diabetes Mellitus Type 1 HEMATOLOGIC: Negative Blood Disorders or Sickle Cell Disease Surgical History SURGICAL: Positive Pacemaker, Ear Surgery, Tonsillectomy and Hysterectomy; Negative Cardiac Surgery, Endocrine Surgery, Abdominal Surgery, Nephrectomy or Neurologic Surgery Social History SMOKING STATUS: Smoking status: Never smoker PACK YEARS: Pack-Years: 65 SECOND HAND EXPOSURE: second hand exposure: No ALCOHOL: Alcohol Intake: Former ALCOHOL FREQUENCY: Alcohol Intake Frequency: holidays/special occasions only HOUSING: Housing: Apartment LIVES WITH: Lives With: Alone Patient Kathie Royal Social History Living Situation History Housing: Apartment Housing Other:: pt lives alone Tobacco History Smoking Status: Never smoker Packs per Day: 2 Pack-Years: 65 Second Hand Smoke Exposure: No Alcohol History Alcohol Intake: Former Alcohol Intake Frequency: holidays/special occasions only Substance Use History Substance Use: meth Domestic Abuse History Do You Feel Safe at Home: Yes Review of Systems Report any current symptoms Only answer those that you have currently: Past Medical History Past Medical History Have you ever been diagnosed with any of the following: Neurological Problems Dementia: Yes Cardiology Problems Cardiac Arrhythmia: Yes Atrial Fibrillation: Yes Heart Murmur: Yes Coronary Artery Disease: Yes Peripheral Vascular Disease: Yes Hypercholesterolemia: Yes Congestive Heart Failure: Yes Cardiomyopathy: Yes Hypertension: Yes Respiratory Problems Chronic Obstructive Pulmonary Disease (COPD): Yes Asthma: No Smoking: Yes Smoking Cessation Counseling: Yes Tobacco Use: Yes Genital/Urinary Problems Renal Disease: No Endocrine Problems Diabetes Mellitus Type 1: No Diabetes Mellitus Type 2: Yes (Metformin) Blood Problems Sickle Cell Disease: No Surgical History Hysterectomy: Yes Pacemaker: Yes History of Present Illness HPI Narrative Ms. Cordova is a 77-year-old demale with a medical history of osteoarthritis, chronic T4 compression fracture with kyphosis, left fibular fracture (March 2023), primary hypertension, diabetes mellitus type II, hyperlipidemia, 4cm thoracic aortic aneurysm, dilated cardiomyopathy HFrEF 25% s/p defibrillator followed by cardiology Dr. Pitts, & chronic atrial fibrillation on Eliquis, COPD/asthma on home O2 PRN 2/2 chronic tobacco use (>30 yrs), NIDDM2, dementia, chronic tremor, & anxiety/depression. 04/08: Pt is in office for follow up visit for pain management. Since pt's last visit in office in october 2024. Pt has had multiple hospitalizations. Pt was initially hospitalized at [facility] earlier this year due to recent fall causing hip fracture and underwent surgery. Pt also had NH and states her defibrillator was replaced during her hospitalization at [facility]. Pt was also in rehab post op for weeks. and was recently sent home less than a week ago. Pt has been experiencing a lot joint pain and is requesting a refill of her home [place] 7.5-325 mg for chronic back and shoulder pain secondary to osteoarthritis and chronic compression fracture. Pt is also requesting intra-articular kenalog injection in the right shoulder. she has no other complaints or concerns. Review of Systems Review of Systems Systems Reviewed: All systems reviewed, normal except as documented Objective/Exam Narrative Physical exam: GENERAL: A&Ox3 . Awake, cooperative and Not in acute distress, pt is in wheelchair NEURO: no neurologist deficit noted HEENT: Atraumatic, Normocephalic. mucous membranes moist. Eyes open, symmetrical, & clear HEART: Normal Heart Sounds LUNGS: Clear to auscultation with no wheezing or crackles. ABDOMEN: soft, non-distended, non-tender, bowel sounds heard, no guarding or rebound tenderness SKIN: No Rash, right kim laceration and ecchymoses noted EXTREMITIES: No edema, tenderness, able to move all 4 extremities Assessment & Plan Diagnosis / Problem List (1) Primary osteoarthritis, right shoulder: Status: Acute Assessment & Plan: -Pt has long time history of severe osteoarthritis in multiple joints and intermittently received steroids injections for some relief. Plan: -Pt received kenalog and lidocaine injection today (04/08) intra-articular right shoulder (2) Compression fracture of T4 vertebra: Status: Acute Qualifiers: Encounter type: subsequent encounter Fracture healing: with routine healing Qualified Code(s): S22.040D - Wedge compression fracture of fourth thoracic vertebra, subsequent encounter for fracture with routine healing Assessment & Plan: -Pt has chronic history of compression fracture of T4 vertebra and chronic pain due to significant arthritis in multiple joints. Plan: -refilled Pts [place] 7.5-325 -Checked CURES -Pt does not display signs of overuse or abuse Additional Assessment Attending note: I, Matthew Wilkes MD, attest that I was physically present for the bloom portions of the service and evaluated the patient with the resident and I reviewed and discussed the case with the resident and agree with the resident's findings and plans of care as documented above. Matthew Wilkes MD Advanced Care Planning Advance care planning discussed with:: patient Physician Billing Established Patient Established Patient: E/M Level 3-CPT 91234 Office Procedures [facility] Level of Care Nursing/Assessment Patient Status: Established Patient Nursing Assessment/Reassessment: Medication Reconciliation, Update PMH in EMR and Vital Signs Coordination of Care: Complex Care and Chronic Disease 1-5, Consent,records obtained, informed consent, Education Simp Pt/Fam, Results/Orders obtained and Staff clarify orders Established Patient Charge Established Patient Point Assignment: 90 Established Patient Point Charge: EP Level 3 (80-115) Ortho - Right Hip Bursa Inj Bursa Injection Note - this was a right shoulder injection Recommend right shoulder cortisone injection as patient would like to proceed with conservative treatment at this time. The risks and benefits of the procedure were reviewed with the patient and patient gave verbal consent to continue with the procedure. The risks discussed included infection, pain, and an increase in blood sugars. Procedure: performed by Dr. Velasquez under direct supervision of Dr. Wilkes. Using sterile technique the right shoulder was thoroughly prepped with alcohol prep, and approximately 1 cc of Kenalog 40 mg/mL and 1 cc of 1% Lidocaine was injected without resistance. The patient tolerated the procedure well.? [id number]
== END 2025-04-08 15:45 | disposition home or self-care (01) ==
LOC: HODAHC 14:52
PROVIDERS: Supervising Provider Internal Medicine
DX: M19.011 Primary osteoarthritis, right shoulder (principal); S22.040D Wedge compression fracture of fourth thoracic vertebra, subsequent encounter for fracture with routine healing; W19.XXXD Unspecified fall, subsequent encounter
CPT/HCPCS: 20610; 99213; J3301; G0463

== ENCOUNTER → 2025-04-08 | Outpatient (CLI) | payer OTHER, SELFPAY ==
[2025-04-08 15:04] LABS: Collection Type, Urine Clean Catch
[2025-04-08 17:08] LABS: Creatinine MALB Rnd Ur 72 mg/dL (30-125); Microalbumin Creat Ratio 96 mg/gCrea (<30); Microalbumin, Random Urine 69 mg/L (0-300)
[2025-04-08 17:10] LABS: Bilirubin,Urine Negative (Negative); Blood,Urine Negative (Negative); Clarity,Urine Clear (Clear/Hazy); Color,Urine Yellow (Lt Yel-Yel); Culture Indicated,Urine Not Indicated; Glucose, Urine 2+ (Negative); Hyaline Casts,Urine < 1 /hpf (0-1); Ketones,Urine Negative (Negative); Leukocyte Esterase,Urine Positive (Negative); Nitrite,Urine Negative (Negative); PH,Urine 5.5 (5.0-7.0); Protein,Urine Trace (Neg - Trace); RBC,Urine 5 /hpf (0-3); Specific Gravity,Urine 1.024 (1.001-1.035); Squamous Epithelial Cell,Urine 2 /hpf (0-5); Urobilinogen,Urine Negative mg/dL (0.0-1.0); WBC,Urine 9 /hpf (0-5)
== END | disposition home or self-care (01) ==
PROVIDERS: PCP Family Medicine; Referring Provider Nurse Practitioner Family; Visit Provider Nurse Practitioner Family
DX: Z00.00 Encounter for general adult medical examination without abnormal findings (principal); I10 Essential (primary) hypertension; E11.22 Type 2 diabetes mellitus with diabetic chronic kidney disease
CPT/HCPCS: 81001; 82043; 82570

== ENCOUNTER 2025-05-04 13:42 | Inpatient (IN) | payer OTHER, MEDICAID, MEDICARE, SELFPAY ==
[2025-05-04] VITALS (12 sets, daily range): BP systolic 116–163; BP diastolic 66–96; PULSE 71–105; RESP 18–86; TEMP 36.4–36.7; O2SAT 86–99; BMI 21.4
--- NOTE | 2025-05-04 14:13 | XR_ITS ---
Examination: Ribs, left, with PA chest, 5 views Technique: Chest PA, RIBS AP, RPO, LPO, AP coned lower ribs 5 views Exam date and time: May 04, 2025 1422 hours INDICATIONS: Right rib pain 5 days Findings: Mild to moderate enlargement cardiac contour Ectatic enlarged thoracic aorta Cardiac leads satisfactory position Prominent vascular congestion Subsegmental atelectasis right base Possible pneumonia in the left lung Severe osteopenia No acute rib fractures IMPRESSION: Mild chronic heart failure Suspicious for pneumonia left lung No pneumothorax No acute rib fractures
--- NOTE | 2025-05-04 14:14 | EKG_ITS ---
[facility] Test Date: 2025-05-04 Pat Name: SAMUEL DALAL Department: Room: - Gender: Female Manager Metrology: : 1945 Requested By: Julio Fuentes Order Number: [id number] Reading MD: Julio Fuentes Measurements Intervals [place] Rate: 72 P: [place]: QRS: -30 QRSD: 157 T: 134 QT: 469 QTc: 515 Interpretive Statements ATRIAL FIBRILLATION LEFT BUNDLE BRANCH BLOCK [120+ ms QRS DURATION, 80+ ms Q/S IN V1/V2, 85+ ms R IN I/aVL/V5/V6] Compared to ECG 10/26/2024 08:50:15 Sinus rhythm no longer present Left-axis deviation no longer present /store/S0/[id number].pdf
--- NOTE | 2025-05-04 14:14 | PD.EDRME ---
Rapid Medical Screening Exam RME Arrival date/time: 05/04/25 13:42 79-year-old female with a history of COPD, type 2 diabetes, hypertension presents to the emergency room with a chief complaint of shortness of breath and right-sided rib pain x 2 days I have greeted and performed a focused initial assessment of this patient. A comprehensive ED assessment and evaluation of the patient, analysis of all test results, and completion of the medical decision making process will be conducted by additional ED providers. Chief Complaint: Shortness of Breath/Dyspnea Vital signs: Vital Signs Pulse Oximetry (%) 86 L 05/04/25 13:51 Oxygen Delivery Method Room Air 05/04/25 13:51 Oxygen Flow Rate 2 05/04/25 13:51 Vital signs reviewed by provider: Yes
[2025-05-04] MEDS: ALBUTEROL RT 2.5 MG/3 ML NEBU INH ×2 (14:41→18:32)
[2025-05-04] MEDS: MethylPREDNISolone SOD SUCC 62.5 MG/ML 2ML VIAL 125 MG IVP (15:17)
[2025-05-04] MEDS: SODIUM CHLORIDE 0.9% 1000 ML 1,000 ML 50 ML IV (15:35)
[2025-05-04 15:40] LABS: Basophils % (Auto) 1 % (0-2.5); Eosinophils # (Auto) 0.2 Thou/mm3 (0.0-0.5); Eosinophils % (Auto) 3 % (0-10); Hematocrit 29.2 % (36.0-46.0); Hemoglobin 9.9 g/dL (12.0-16.0); Immature Granulocytes % (Auto) 1 % (0-0); Immature Granulocytes Auto 0.06 Thou/mm3 (0.00-0.00); Lymphocytes # (Auto) 0.8 Thou/mm3 (1.0-4.8); Lymphocytes % (Auto) 13 % (10-50); Mean Corpuscular HGB Conc 33.9 g/dl (31.0-37.0); Mean Corpuscular Volume 83 fL (80-100); Monocytes # (Auto) 0.4 Thou/mm3 (0.0-0.8); Monocytes % (Auto) 7 % (0-12); Neutrophils # (Auto) 4.9 Thou/mm3 (1.8-7.7); Neutrophils % (Auto) 76 % (37-80); Nucleated Red Blood Cell % 0 /100 WBC (0); Platelet Count 306 Thou/mm3 (140-440); RDW Standard Deviation 49.4 fL (36.4-46.3); Red Blood Count 3.54 Miln/mm3 (4.00-5.20); White Blood Count 6.5 Thou/mm3 (3.6-11.0)
[2025-05-04 15:56] LABS: Partial Thromboplastin Time 21.4 Seconds (22.0-36.0); Prothrombin Time 10.8 Seconds (9.0-12.2)
[2025-05-04 15:59] LABS: B-Type Natriuretic Peptide 769 pg/mL (0-100)
[2025-05-04 16:01] LABS: Alanine Aminotransferase 14 U/L (10-49); Albumin, Serum 4.2 gm/dL (3.4-4.8); Alkaline Phosphatase 325 U/L (46-116); Anion Gap 13 (7-16); BUN/Creatinine Ratio 32 Ratio (12-20); Bilirubin,Total 1.2 mg/dL (0.3-1.2); Blood Urea Nitrogen 29 mg/dL (9-23); Calcium 9.2 mg/dL (8.3-10.6); Calcium (Corrected) 9.2 mg/dL (8.5-10.1); Carbon Dioxide 21.2 mMol/L (20.0-31.0); Chloride 106 mMol/L (98-107); Creatinine (Component) 0.9 mg/dL (0.6-1.3); Estimated Creatinine Clearance 44.5 mL/min (>60); Globulin 2.1 gm/dL (2.3-3.5); Glucose 207 mg/dL (74-106); Magnesium 1.9 mg/dL (1.6-2.6); Osmolality,Calculated 291 (275-295); Potassium 4.4 mMol/L (3.4-5.1); Sodium 140 mMol/L (136-145); Total Protein 6.3 gm/dL (5.7-8.2); Troponin I 0.029 ng/mL (0.0-0.045); eGFR > 60 See Note
[2025-05-04 16:06] LABS: D-Dimer 1000 ng/mL (<600)
--- NOTE | 2025-05-04 16:15 | XR_ITS ---
Examination: CTA chest with intravenous contrast 2-D reconstructions 3-D reconstructions, vascular Date and time of exam: May 04, 2025 1720 hours INDICATIONS: Chest pain and right shoulder pain shortness of breath today, elevated d-dimer CTDI: vol (mGy) 6.64 DLP: (mGycm) 230 Technique: Multiple axial sections of the thorax have been obtained. 3 mm slice thickness, from below the hemidiaphragms to above the apices of the lungs. Mediastinal and lung density settings have been obtained. 2-D sagittal and coronal reconstructions. 3-D angiographic renderings, 3-D volume renderings, 3D post processing, vascular maximum intensity projections obtained. Contrast administered is 100 cc Isovue 370. Intravenous Low dose protocols were performed. One or more of the following dose reduction techniques were used; automated exposure control, adjustment of the mA and/or KV according to patient size, use of iterative reconstruction technique. Findings: Ascending thoracic aorta 4.2 cm No pulmonary artery filling defects Prominent vascular congestion Septal pulmonary edema throughout the lungs Mild to moderate enlargement cardiac contour No visualized liver or splenic lesion Gallstones Gallbladder wall appears mildly thickened No hydronephrosis IMPRESSION: [id number] CHF Negative for pulmonary artery emboli Mild aneurysmal dilatation ascending thoracic aorta Recommend hepatobiliary sonography follow-up to exclude calculus cholecystitis
[2025-05-04] MEDS: DOXYCYCLINE INJ 100 MG in SODIUM CHLORIDE 0.9% (POP) 100 ML IV (16:27)
[2025-05-04] MEDS: cefTRIAXone 2 GM in SODIUM CHLORIDE 0.9% (Popper) 50 ML IV (16:28)
--- NOTE | 2025-05-04 16:42 | EKG_ITS ---
[facility] Test Date: 2025-05-04 Pat Name: SAMUEL DALAL Department: Room: - Gender: Female Healthcare Facility Administrator: : 1945 Requested By: Oziel Child Order Number: [id number] Reading MD: Oziel Child Measurements Intervals [place] Rate: 91 P: GA: QRS: -37 QRSD: 157 T: 126 QT: 441 QTc: 544 Interpretive Statements ATRIAL FIBRILLATION WITH ABERRANT CONDUCTION OR VENTRICULAR PREMATURE COMPLEXES LEFT AXIS DEVIATION [QRS AXIS < -30] LEFT BUNDLE BRANCH BLOCK [120+ ms QRS DURATION, 80+ ms Q/S IN V1/V2, 85+ ms R IN I/aVL/V5/V6] Compared to ECG 05/04/2025 14:53:15 Ventricular premature complex(es) now present Aberrant conduction of supraventricular beat(s) now present Left-axis deviation now present /store/S0/[id number]/[id number].pdf
--- NOTE | 2025-05-04 17:13 | EDNOTE_ITS ---
ED SOB =RME/HPI General Chief Complaint: Shortness of Breath/Dyspnea Stated Complaint: DIFF BREATHING/RIGHT SHOULDER PAIN x5 DAYS, LOW O2 Time Seen by Provider: 05/04/25 14:25 Arrival date/time: 05/04/25 13:42 Limitations: no limitations RME / HPI RME / HPI Narrative: 05/04/25 13:42 79-year-old female with a history of COPD, type 2 diabetes, hypertension presents to the emergency room with a chief complaint of shortness of breath and right-sided rib pain x 2 days I have greeted and performed a focused initial assessment of this patient. A comprehensive ED assessment and evaluation of the patient, analysis of all test results, and completion of the medical decision making process will be conducted by additional ED providers. DR. RAMACHANDRAN MAIN ED EVALUATION: 79 year old female with a history of HFrEF of 20-25% (04/2024), atrial fibrillation, status post defibrillator placement, hypertension, diabetes, hyperlipidemia, and COPD presents to the ED BIBA from home for evaluation of worsening shortness of breath over the past 5 days. The patient reports increasing difficulty breathing, describing it as gasping for air. States she is on oxygen only at night but was advised by PCP to use throughout the day. Additionally, the patient complains of right shoulder pain, which she previously consulted with her PCP for and was diagnosed with intercostal musculoskeletal pain. She states that today, while trying to adjust herself in bed, the pain became severe. No other complaints are noted at this time. Denies any fever, chills, abdominal pain, or other associated symptoms. Related Data Home Medications ?Medication ?Instructions ?Recorded ?Confirmed donepezil 10 mg tablet 10 mg PO QPM 09/05/21 metformin 500 mg tablet 500 mg PO BID 09/05/2104/08 Held on 10/26/24. Instructions: Resume on 10/28/24. Resume this medication on this date at your usual time metoprolol succinate 25 mg 25 mg PO QDAY 02/27/2403/25 tablet,extended release 24 hr ciprofloxacin HCl 500 mg tablet 500 mg PO BID 10/26/24 04/08/25 nitrofurantoin 100 mg capsule 100 mg PO BID 10/26/24 0 04/08/25 spironolactone 25 mg tablet 25 mg PO QDAY 10/26/24 Previous Rx's ?Medication ?Instructions ?Recorded amiodarone 200 mg tablet 200 mg PO BID 30 days #60 ta bs 04/30/24 magnesium oxide 400 mg (241.3 mg 400 mg PO QDAY 30 day s #30 tabs 04/30/24 magnesium) tablet doxycycline monohydrate 100 mg 100 mg PO BID #14 caps 06/25/24 capsule aspirin 81 mg chewable tablet 81 mg PO QDAY #30 tabs 1 12/27/23 ticagrelor 90 mg tablet (Brilinta) 90 mg PO BID #60 ta bs 10/26/24 hydrocodone 7.5 mg-acetaminophen 1 tab PO BID PRN pain #60 tabs 04/08/25 325 mg tablet Allergies Allergy/AdvReac Type Severity Reaction Status Date / Time Penicillins Allergy Severe UNKNOWN Verified 05/04/25 13:46 Sulfa (Sulfonamide Allergy Severe Swelling Verified 05/04/25 13:46 Antibiotics) Review of Systems Review of Systems Systems Reviewed: All systems reviewed, normal except as documented Past Medical History Past Medical History NEUROLOGIC: Positive Dementia; Negative Neurological Disorders CARDIAC: Positive Cardiac Disorders, Cardiac Arrhythmia, Atrial Fibrillation, Heart Murmur, Coronary Artery Disease, Peripheral Vascular Disease, Hypercholesterolemia, Congestive Heart Failure, Cardiomyopathy, Hypertension and Hypotension RESPIRATORY: Positive Respiratory Disorders, Chronic Obstructive Pulmonary Disease (COPD), Asthma, Smoking, Smoking Cessation Counseling and Tobacco Use GASTROINTESTINAL: Negative Gastrointestinal Disorders GENITOURINARY: Negative Genitourinary Disorders or Renal Disease MUSCULOSKELETAL: Negative Musculoskeletal Disorders ENDOCRINE: Positive Endocrine Disorders and Diabetes Mellitus Type 2; Negative Diabetes Mellitus Type 1 HEMATOLOGIC: Negative Blood Disorders or Sickle Cell Disease Surgical History SURGICAL: Positive Pacemaker, Ear Surgery, Tonsillectomy and Hysterectomy; Negative Cardiac Surgery, Endocrine Surgery, Abdominal Surgery, Nephrectomy or Neurologic Surgery Social History SMOKING STATUS: Former smoker SECOND HAND EXPOSURE: No SUBSTANCE USE: does not use ED Exam General Limitations: Present no limitations General appearance: Present alert and other (Patient had terrible exertional dyspnea with sitting up which resolved after 1 minute, fraile) Head Head exam: Present atraumatic, normocephalic and normal inspection Eye Eye exam: Present normal appearance, PERRL and EOMI ENT ENT exam: Present normal exam, normal oropharynx and mucous membranes moist Neck Neck exam: Present normal inspection, full ROM and trachea midline Chest Chest inspection: Present normal inspection and symmetric chest wall rise Respiratory Respiratory exam: Present other (Diminished breath sounds throughuot, increased accesorry muscle use ) Cardiovascular Cardiovascular exam: Present regular rate, normal rhythm and other (Distant heart sounds ) Abdominal Exam Abdominal exam: Present soft and normal bowel sounds Extremities Exam Extremities exam: Present normal inspection and full ROM Back Exam Back exam: Present normal inspection and full ROM Neurological Exam Neurological exam: Present alert, oriented X3 and CN II-XII intact Psychiatric Psychiatric exam: Present normal affect and normal mood Skin Skin exam: Present warm, dry, intact and normal color Course Quality Measures none Orders Category Date Time Status COVID-19 Screening Questionnaire NOW Care 05/04/25 17:[address] Screening NOW Care 05/04/25 16:15 Active Online Content Editor NOW Care 05/04/25 14:31 Active Continuous Pulse Oximetry NOW Care 05/04/25 14:31 Completed Decision to Admit X1 Care 05/04/25 17:32 Active EKG (ED ONLY) *Do not use* NOW Care 05/04/25 14:14 Completed EKG (ED ONLY) *Do not use* NOW Care 05/04/25 16:42 Completed Insert IV NOW Care 05/04/25 14:[address] angio chest Stat Exams 05/04/25 16:15 Completed EKG (ED Only) Stat Exams 05/04/25 14:14 Draft EKG (ED Only) Stat Exams 05/04/25 16:42 Draft XR ribs RT min 3V w CXR1V Stat Exams 05/04/25 14:13 Completed B-Type Natriuretic Peptide Stat Lab 05/04/25 15:27 Completed Blood Culture (Lab) Stat Lab 05/04/25 16:13 Received CBC Stat Lab 05/04/25 15:27 Completed Comprehensive Metabolic Panel Stat Lab 05/04/25 15:27 Completed D-Dimer Stat Lab 05/04/25 15:27 Completed Magnesium Stat Lab 05/04/25 15:27 Completed Partial Thromboplastin Time Stat Lab 05/04/25 15:27 Completed Prothrombin Time with INR Stat Lab 05/04/25 15:27 Completed Troponin I Stat Lab 05/04/25 15:27 Completed ALBUTEROL RT 3ml [Proventil Rt 3ml] Med 05/04/25 14:31 Discontinued 2.5 mg INH X1 ONE ALBUTEROL RT 3ml [Proventil Rt 3ml] Med 05/04/25 15:49 Discontinued 2.5 mg INH X1 ONE Doxycycline Inj [Vibramycin Inj] 100 mg Med 05/04/25 15:46 Discontinued Sodium Chloride 0.9% (Pop) [NS 0.9% mini bag] 100 ml IV X1 MethylPREDNISolone.* [SoluMEDROL Inj] Med 05/04/25 14:31 Discontinued 125 mg IVP X1 ONE Sodium Chloride 0.9% 1000 ml [Ns] 1,000 ml Med 05/04/25 14:30 Active IV 100 mls/hr Sodium Chloride 0.9% 1000 ml [Ns] 1,000 ml Med 05/04/25 15:33 Active IV 50 mls/hr Sodium Chloride 0.9% [Ns] 100 ml Med 05/04/25 15:30 Discontinued IV X1 cefTRIAXone [Rocephin] 2 gm Med 05/04/25 15:46 Discontinued SODIUM CHLORIDE 0.9% (Popper) [Ns 0.9% (P)] 50 ml IV X1 Oxygen Delivery NOW RT 05/04/25 13:51 Active Oxygen Delivery NOW RT 05/04/25 14:31 Active Vital Signs Vital signs: Vital Signs Pulse Oximetry (%) 86 L 05/04/25 13:51 Oxygen Delivery Method Room Air 05/04/25 13:51 Oxygen Flow Rate 2 05/04/25 13:51 Shortness of Breath / Dyspnea MDM Narrative MDM Narrative:: Radha Cuellar am scribing for and in the presence of Dr. Ramachandran. 1632: Notified by RN that the patient HR is in the 140's. Ordered repeat EKG. 1647: Patient HR dropped to 80's spontaneously. Patient data External records reviewed:: [facility] previous records (I reviewed ED visit on 02/01/2025 ) Clinical information provided by:: patient Social determinants that could affect healthcare access:: none Patient has the following chronic illnesses:: HFrEF of 20-25% (04/2024), atrial fibrillation, status post defibrillator placement, hypertension, diabetes, hyperlipidemia, and COPD How is presenting disease/condition affected by chronic disease/condition?: exacerbated by Evaluation data The following diagnostics were reviewed and interpreted by me:: lab results, radiology exam(s) and EKG tracing(s) (EKG #1 05/04/25 @ 14:53. Atrial fibrillation, rate 72, left bundle branch block. EKG #2 05/04/2025 @ 16:45. Atrial fibrillation with aberant conduction, HR 91, left axis deviation, left bundle branch block. I also reviewed the environmental monitoring technician and rate was 154, probably atrial fibrillation. ) Lab and/or radiology exams considered but not ordered:: None Interpretation Summary: Ordering Physician: Julio Smith Date of Service: 05/04/25 Procedure(s): XR ribs RT min 3V w CXR1V Accession Number(s): [id number] cc: Julio Smith; Geoff Bruce MD~ Examination: Ribs, left, with PA chest, 5 views Technique: Chest PA, RIBS AP, RPO, LPO, AP coned lower ribs 5 views Exam date and time: May 04, 2025 1422 hours INDICATIONS: Right rib pain 5 days Findings: Mild to moderate enlargement cardiac contour Ectatic enlarged thoracic aorta Cardiac leads satisfactory position Prominent vascular congestion Subsegmental atelectasis right base Possible pneumonia in the left lung Severe osteopenia No acute rib fractures IMPRESSION: Mild chronic heart failure Suspicious for pneumonia left lung No pneumothorax No acute rib fractures Dictated By: Geoff Bruce MD Signed By: <Electronically signed by Geoff Bruce MD in [place]> 05/04/25 1441 Ordering Physician: Oziel Ramachandran MD Date of Service: 05/04/25 Procedure(s): CT angio chest Accession Number(s): [id number] cc: Nancy Obando NP; Oziel Ramachandran MD; Geoff Bruce MD~ Examination: CTA chest with intravenous contrast 2-D reconstructions 3-D reconstructions, vascular Date and time of exam: May 04, 2025 1720 hours INDICATIONS: Chest pain and right shoulder pain shortness of breath today, elevated d-dimer CTDI: vol (mGy) 6.64 DLP: (mGycm) 230 Technique: Multiple axial sections of the thorax have been obtained. 3 mm slice thickness, from below the hemidiaphragms to above the apices of the lungs. Mediastinal and lung density settings have been obtained. 2-D sagittal and coronal reconstructions. 3-D angiographic renderings, 3-D volume renderings, 3D post processing, vascular maximum intensity projections obtained. Contrast administered is 100 cc Isovue 370. Intravenous Low dose protocols were performed. One or more of the following dose reduction techniques were used; automated exposure control, adjustment of the mA and/or KV according to patient size, use of iterative reconstruction technique. Findings: Ascending thoracic aorta 4.2 cm No pulmonary artery filling defects Prominent vascular congestion Septal pulmonary edema throughout the lungs Mild to moderate enlargement cardiac contour No visualized liver or splenic lesion Gallstones Gallbladder wall appears mildly thickened No hydronephrosis IMPRESSION: [id number] CHF Negative for pulmonary artery emboli Mild aneurysmal dilatation ascending thoracic aorta Recommend hepatobiliary sonography follow-up to exclude calculus cholecystitis Dictated By: Geoff Bruce MD Signed By: <Electronically signed by Geoff Bruce MD in [place]> 05/04/25 1746 Medications / Prescriptions Medications or Prescriptions considered but not ordered:: None Medication administrations:: Medication Administration History Sodium Chloride (Ns) 1,000 mls @ 100 mls/hr IV .Q10H ONE Stop: 05/05/25 00:29 Last Admin: 05/04/25 15:32 Dose: Not Given Documented By: VL Non-Admin Reason: Discontinued Sodium Chloride (Ns) 1,000 mls @ 50 mls/hr IV .Q20H ONE Stop: 05/05/25 11:32 Last Admin: 05/04/25 15:35 Dose: 50 mls/hr Documented By: VL Discontinued Medications Albuterol (Albuterol Rt 2.5 Mg/3 Ml Nebu) 2.5 mg INH X1 ONE Stop: 05/04/25 14:32 Last Admin: 05/04/25 14:41 Dose: 2.5 mg Documented By: DM Albuterol (Albuterol Rt 2.5 Mg/3 Ml Nebu) 2.5 mg INH X1 ONE Stop: 05/04/25 15:50 Sodium Chloride (Ns) 100 mls @ 50 mls/hr IV X1 ONE Stop: 05/04/25 17:29 Last Admin: 05/04/25 15:32 Dose: Not Given Documented By: HERNAN Non-Admin Reason: Discontinued Ceftriaxone Sodium 2 gm/ (Sodium Chloride) 50 mls @ 100 mls/hr IV X1 ONE Stop: 05/04/25 16:15 Last Infusion: 05/04/25 17:24 Dose: Infused Documented By: Admin: 05/04/25 16:28 Dose: 100 mls/hr Documented By: Doxycycline Hyclate 100 mg/ (Sodium Chloride) 100 mls @ 100 mls/hr IV X1 ONE Stop: 05/04/25 16:45 Last Infusion: 05/04/25 17:27 Dose: Infused Documented By: Admin: 05/04/25 16:27 Dose: 100 mls/hr Documented By: MEGHAN Methylprednisolone Sodium Succinate (Methylprednisolone Sod Succ 62.5 Mg/Ml 2ml Vial) 125 mg IVP X1 ONE Stop: 05/04/25 14:32 Last Admin: 05/04/25 15:17 Dose: 125 mg Documented By: HERNAN See above Consultations Consultation(s) initiated? (list below): Yes Consultation #1 (Physician, Specialty, Details): I spoke with residents working with Dr. Baig. Discussed patients PMHx, HPI, ED course, exam findings, labs, and radiology results. The hospitalist agree to accept the patient for admission. Time: 17:25 Diagnosis Shortness of Breath Differential Diagnosis: acute exacerbation of chronic obstructive airways disease, congestive heart failure, community acquired pneumonia, asthma with exacerbation and pulmonary embolism Most likely diagnosis given after review of the tests above:: Acute COPD exacerbation Pneumonia Respiratory failure Admission Indicated Admission indicated?: indicated Admission Request Was there a request for admission?: Yes Admission Attestation Admission request attestation: Discussed case with [] from Hospitalist service regarding admission. Discussed patients ED course, exam findings, labs, and radiology results. The Hospitalist [agrees,declines] to accept the patient for admission. Disposition Plan Disposition Plan: Admit Critical Care Time Critical Care Time Critical Care Time: Yes Total Critical Care Time (min.): 60 Attestation: The high probability of sudden, clinically significant deterioration in the patient's condition required the highest level of my preparedness to intervene urgently. The services I provided to this patient were to treat and/or prevent clinically significant deterioration. Services included the following: chart data review, reviewing nursing notes and/or old charts, documentation time, data quality consultant collaboration regarding findings and treatment options, medication orders and management, direct patient care, vital sign assessments and ordering, interpreting and reviewing diagnostic studies and lab tests. Aggregate critical care time includes only time during which I was engaged in work directly related to the patient's care, as described above, whether at bedside or elsewhere in the Emergency Department. It did not include time spent performing other reported procedures or the services of residents, students, nurses or physician assistants. Discharge Plan Plan Patient Disposition: Admit Acute Care w/in Hospital Prescriptions/Referrals Prescriptions/Med Rec: No Action hydrocodone-acetaminophen 7.5-325 mg tablet 1 tab PO BID MDD 15 mg PRN (Reason: pain) Qty: 60 0RF metformin 500 mg tablet 500 mg PO BID Patient Comments: TAKE 1 TABLET BY MOUTH TWICE DAILY donepezil 10 mg Tablet 10 mg PO QPM metoprolol succinate 25 mg tablet extended release 24 hr 25 mg PO QDAY Patient Comments: TAKE ONE TABLET BY MOUTH WITH FOOD EVERY DAY FOR BLOOD PRESSURE nitrofurantoin 100 mg Capsule 100 mg PO BID Rx Instructions: must administer with a meal/food ciprofloxacin HCl 500 mg Tablet 500 mg PO BID spironolactone 25 mg Tablet 25 mg PO QDAY aspirin 81 mg Tablet,Chewable 81 mg PO QDAY Qty: 30 5RF Brilinta 90 mg Tablet 90 mg PO BID Qty: 60 5RF magnesium oxide 400 mg (241.3 mg magnesium) tablet 400 mg PO QDAY 30 Days Qty: 30 2RF amiodarone 200 mg tablet 200 mg PO BID 30 Days Qty: 60 2RF doxycycline monohydrate 100 mg capsule 100 mg PO BID Qty: 14 0RF Referrals: Nnacy Obando YARDER OPERATOR [Primary Care Provider] - In 1 week Problem List Clinical Impression: COPD with acute exacerbation, Pneumonia, Respiratory failure Patient/Caregiver Discharge Instructions Print Language: Marshallese Stand Alone Forms: Amelia Award Info., Patient Portal Info Letter
--- NOTE | 2025-05-04 18:36 | PD.RESHP ---
Documentation for date of: 05/04/25 [facility] History of Present Illness Chief complaint: SOB History of present illness: Ella Cordova is 79 yr F osteoarthritis, chronic T4 compression fracture with kyphosis, left fibular fracture (March 2023), primary hypertension, diabetes mellitus type II, hyperlipidemia, 4cm thoracic aortic aneurysm, dilated cardiomyopathy HFrEF 25% s/p defibrillator followed by cardiology Dr. Pitts, & chronic atrial fibrillation on Eliquis, COPD/asthma on home O2 PRN 2/2 chronic tobacco use (>30 yrs), NIDDM2, dementia, chronic tremor, & anxiety/depression presenting to ED due to worsening shortness of breath and right-sided rib pain. Patient denies any recent falls. She did have a fall last year in July and resulted in a hip fracture. Patient was also recently in [facility] for treatment of COVID and pneumonia. She was likely a hospital for about 1 month where she also underwent changing of her ICD. Patient was in PCP clinic today seeing Dr. Nancy Obando when she was having noticeable shortness of breath. PCP then encouraged patient to go to ED for evaluation. She endorses difficulty breathing when walking around in her house, uses multiple pillows at night for sleeping, denies any lower extremity swelling at this time. Has been having decreased appetite for which she takes appetite stimulant. She does not have pulse ox at home to check oxygenation and often uses 2 L oxygen at home. Patient denies any chest pain, abdominal pain, diarrhea, fevers. Endorses constipation with last bowel movement about 2 days ago. In ED, BP 163/94, tachypneic 28, on 4 L NC saturating 93%. Hemoglobin 9.9, glucose 207, A1c 7.5 from last month. Elevated D-dimer 1000, elevated BNP. Chest x-ray mild pneumonia, x-ray ribs negative for any fractures. She was given ceftriaxone, doxycycline, 1 L NS, IV methylprednisone 125 Mg x 1, albuterol x 1 while in ED. Admit patient for acute on chronic hypoxic respiratory failure secondary to COPD exacerbation and treatment of pneumonia. PMH: As noted above PSH as noted above Family Hx:Negative for known bleeding disorders Social: Lives alone has help from caregiver, denies smoking, denies drinking Meds: Med rec pending Allergies: Penicillin, sulfa causing swelling. Review of Systems Review of Systems Systems Reviewed: All systems reviewed, normal except as documented Exam Vital Signs Temp Pulse Resp BP Pulse Ox O2 Del Method O2 Flow Rate 97.7 F 93 22 H 125/80 99 Nasal Cannula 2 05/04/25 18:26 05/04/25 18:32 05/04/25 18:32 05/04/25 18:26 05/04/25 18:32 05/04/25 18:26 05/04/25 18:32 Narrative Exam General: elderly female, No acute distress, cooperative HEENT: NCAT, No JVD noted. Mucosa moist. Pupils are equal and reactive to light bilaterally Cardiovascular: Normal S1 and S2. Regular rate and rhythm. ICD Respiratory: Mild wheezing appreciated. On NC Abdomen: Soft, nontender, not distended, normal bowel sounds. Skin: Warm to touch, dry, senile purpura throughout extremities Musculoskeletal: No gross injuries. Able to move all 4 extremities. No pitting edema Neuro: Alert and oriented x3. No focal neuro deficits. Psych: Normal affect and mood Results: Labs 05/05/25 09:38 05/05/25 09:38 Labs: Short CBC 05/04/25 Range/Units 15:27 WBC 6.5 (3.6-11.0) Thou/mm3 Hgb 9.9 L (12.0-16.0) g/dL Hct 29.2 L (36.0-46.0) % Plt Count 306 D (140-440) Thou/mm3 BMP 05/04/25 15:27 Sodium 140 Potassium 4.4 Chloride 106 Carbon Dioxide 21.2 BUN 29 H Creatinine 0.9 Glucose 207 H Calcium 9.2 Cardiac Enzymes 05/04/25 Range/Units 15:27 Troponin I 0.029 (0.0-0.045) ng/mL Liver Function 05/04/25 Range/Units 15:27 Total Bilirubin 1.2 (0.3-1.2) mg/dL ALT 14 (10-49) U/L Alkaline Phosphatase 325 H (46-116) U/L Albumin 4.2 (3.4-4.8) gm/dL Quality Measures Quality Measures none Advance care planning discussed with:: patient Medications Home Medications and Allergies Home Medications ?Medication ?Instructions ?Recorded ?Confirmed ?Type donepezil 10 mg tablet 10 mg PO QPM 09/05/21 05/04/25 History metformin 500 mg tablet 500 mg PO BID 09/05/21 04/08/25 History Held on 10/26/24. Instructions: Resume on 10/28/24. Resume this medication on this date at your usual time metoprolol succinate 25 mg 25 mg PO QDAY 02/27/24 05/04/25 History tablet,extended release 24 hr ciprofloxacin HCl 500 mg tablet 500 mg PO BID 10/26/24 04/08/25 History nitrofurantoin 100 mg capsule 100 mg PO BID 10/26/24 04/08/25 History spironolactone 25 mg tablet 25 mg PO QDAY 10/26/24 04/08/25 History amiodarone 100 mg tablet 100 mg PO DAILY Atrial fibrilation 05/04/25 05/04/25 History furosemide 40 mg tablet 40 mg PO DAILY Heart failure 05/04/25 05/04/25 History dapagliflozin propanediol 10 mg 10 mg PO QDAY 05/05/25 05/05/25 History tablet Allergies Allergy/AdvReac Type Severity Reaction Status Date / Time Penicillins Allergy Severe UNKNOWN Verified 05/04/25 13:46 Sulfa (Sulfonamide Allergy Severe Swelling Verified 05/04/25 13:46 Antibiotics) Visit Medications Acetaminophen (Acetaminophen 325 Mg Tablet) 650 mg PO Q6H PRN PRN Reason: Fever >100.3 or pain 1-3 Stop: 06/03/25 18:20 Hydrocodone Bitart/Acetaminophen (Hydrocodone/Apap 7.5/325 Tablet) 1 tab PO BID PRN PRN Reason: pain 7-10 Stop: 05/09/25 18:32 Albuterol/Ipratropium (Albuterol/Ipratropium (Duoneb) Rt Renay 3 Ml Nebu) 3 ml INH Q4HRRT REKHA Stop: 06/03/25 18:59 Albuterol/Ipratropium (Albuterol/Ipratropium (Duoneb) Rt Renay 3 Ml Nebu) 3 ml INH X1 PRN PRN Reason: SHORTNESS OF BREATH Stop: 06/03/25 18:20 Amiodarone HCl (Amiodarone Hcl 200 Mg Tablet) 100 mg PO DAILY REKHA Stop: 06/04/25 08:59 Dextrose (Dextrose 50%-Water Inj 50 Ml Syringe) 25 ml IV Q15MIN PRN PRN Reason: BG 50-70 responsive npo pt Stop: 06/03/25 18:26 Dextrose (Dextrose 50%-Water Inj 50 Ml Syringe) 50 ml IV Q15MIN PRN PRN Reason: BG <50 OR BG <70 & pt unresponsive Stop: 06/03/25 18:26 Donepezil HCl (Donepezil Hcl 5 Mg Tablet) 10 mg PO QPM [facility] Stop: 06/03/25 20:59 Furosemide (Furosemide 40 Mg Tablet) 40 mg PO DAILY REKHA Stop: 06/04/25 08:59 Glucagon (Glucagon Inj 1 Mg Vial) 1 mg IM Q15MIN PRN PRN Reason: BG <70, and no IV access Heparin Sodium (Porcine) (Heparin Sod Inj 5000 Unit/Ml Vial) 5,000 unit SC Q8HR [facility] Stop: 05/18/25 21:59 Sodium Chloride (Ns) 1,000 mls @ 100 mls/hr IV .Q10H ONE Stop: 05/05/25 00:29 Last Admin: 05/04/25 15:32 Dose: Not Given Sodium Chloride (Ns) 1,000 mls @ 50 mls/hr IV .Q20H ONE Stop: 05/05/25 11:32 Last Admin: 05/04/25 15:35 Dose: 50 mls/hr Azithromycin 500 mg/ Sodium (Chloride) 250 mls @ 250 mls/hr IV QDAY [facility] Stop: 05/07/25 18:26 Ceftriaxone Sodium/Dextrose (Rocephin/D5w 1gm Iv Premix) 1 gm in 50 mls @ 100 mls/hr IV QDAY [facility] Stop: 05/12/25 08:59 Insulin Human Lispro (Insulin Lispro (Admelog) 1 Unit/0.01 Ml Unit) 0 unit SC AC [facility]; Protocol Stop: 06/04/25 07:29 Lactulose (Lactulose Syrup 20 Gm/30 Ml Udc) 10 gm PO QDAY [facility]; Protocol Stop: 06/03/25 18:29 Methylprednisolone Sodium Succinate (Methylprednisolone Sod Succ 40 Mg Vial) 40 mg IVP TID [facility] Stop: 05/12/25 05:59 Ondansetron HCl (Ondansetron Inj 2 Mg/Ml Inj 2 Ml) 4 mg IVP Q6H PRN; Protocol PRN Reason: NAUSEA OR VOMITING Stop: 06/03/25 18:20 Pantoprazole Sodium (Pantoprazole 40 Mg Tablet) 40 mg PO QDAY REKHA Stop: 06/04/25 08:59 Ticagrelor (Ticagrelor 90 Mg Tablet) 90 mg PO BID REKHA Stop: 06/03/25 20:59 Discontinued Medications Albuterol (Albuterol Rt 2.5 Mg/3 Ml Nebu) 2.5 mg INH X1 ONE Stop: 05/04/25 14:32 Last Admin: 05/04/25 14:41 Dose: 2.5 mg Albuterol (Albuterol Rt 2.5 Mg/3 Ml Nebu) 2.5 mg INH X1 ONE Stop: 05/04/25 15:50 Last Admin: 05/04/25 18:31 Dose: 2.5 mg Sodium Chloride (Ns) 100 mls @ 50 mls/hr IV X1 ONE Stop: 05/04/25 17:29 Last Admin: 05/04/25 15:32 Dose: Not Given Ceftriaxone Sodium 2 gm/ (Sodium Chloride) 50 mls @ 100 mls/hr IV X1 ONE Stop: 05/04/25 16:15 Last Infusion: 05/04/25 17:24 Dose: Infused Doxycycline Hyclate 100 mg/ (Sodium Chloride) 100 mls @ 100 mls/hr IV X1 ONE Stop: 05/04/25 16:45 Last Infusion: 05/04/25 17:27 Dose: Infused Methylprednisolone Sodium Succinate (Methylprednisolone Sod Succ 62.5 Mg/Ml 2ml Vial) 125 mg IVP X1 ONE Stop: 05/04/25 14:32 Last Admin: 05/04/25 15:17 Dose: 125 mg Assessment & Plan Plan Ella Cordova is 79 yr F osteoarthritis, chronic T4 compression fracture with kyphosis, left fibular fracture (March 2023), primary hypertension, diabetes mellitus type II, hyperlipidemia, 4cm thoracic aortic aneurysm, dilated cardiomyopathy HFrEF 25% s/p defibrillator followed by cardiology Dr. Pitts, & chronic atrial fibrillation on Eliquis, COPD/asthma on home O2 PRN 2/2 chronic tobacco use (>30 yrs), NIDDM2, dementia, chronic tremor, & anxiety/depression presenting to ED due to worsening shortness of breath and right-sided rib pain. Patient was in PCP clinic today seeing Dr. Nancy Obando when she was having noticeable shortness of breath. PCP then encouraged patient to go to ED for evaluation. Admit patient for acute on chronic hypoxic respiratory failure secondary to COPD exacerbation and treatment of pneumonia. #Acute on chronic hypoxic respiratory failure 2/2 #COPD exacerbation #CAP Having worsening SOB and chest pain worse with palpation, sent by PCP for workup. Patient uses 2 L oxygen at home. Chest x-ray mild pneumonia, x-ray ribs negative for any fractures. She was given ceftriaxone, doxycycline, 1 L NS, IV methylprednisone 125 Mg x 1, albuterol x 1 while in ED. ?Azithromycin 500 mg p.o. daily -IV ceftriaxone 1g daily -IV Solu-Medrol 40 mg IVP Q8HR -Duonebs Q4HRRT scheduled -Oxygen Support, goal of 88-92% SpO2 #Hx atrial fibrilation #s/p ICD CHADsVASc score 7--11%risk/yr Ttroponins negative, EKG showed HR 90s in [employer]. Takes amiodarone 100mg daily, metoprolol 25 mg daily for rate control, Asprin + Brilinta 90mg BID -resumed -continue to monitor electolytes keeping potassium >4.0 and Mg >2.0 # [id number] type 2 diabetes, poorly controlled On admission initial glucose 207 but went up to 400 few hours later. Last A1c 7.5 on 04/18. Patient takes metformin 500 BID Jardiance for diabetes at home. Patient received 10 units regular insulin in ED. -Held home medications -Bedside blood glucose checks ACHS -Insulin lispro sliding scale -Carb consistent low diet #Hx 4cm thoracic aortic aneurysm CTA chst shows ascending thoracic aorta 4.2 cm -BP control -monitor with outpatient imaging every 6mo-1yr #Hx HFrEF (EF 25%) Echo 04/27/2024 Showed severe systolic dysfunction, global hypokinesis, EF 20-25%. She follows with Dr. Pitts outpatient. Had ICD replaced echo in the hospital 1-2 months ago. Does not appear to be in an exacerbation. - Continue metoprolol 25 mg daily -Spironolactone 25 mg daily ? Furosemide 40 mg daily #Hx Dementia #Hx depression #Hx OA with chornic pain -resumed donepezil 10 mg ? Patient states she takes sertraline 50 mg daily for depression, med rec pending ? Resumed hydrocodone 7.5 BID PRN for joint pain Health maintenance: Dispo: tele COPD exacerbatin FEN: low carb DVT prophylaxis: Subcu heparin CODE STATUS: DNR The patient's management plan was discussed with my attending physician Dr. Baig. Grace Cheung, PGY-1 Attending Provider Attestation/Addendum I have examined the patient, reviewed labs and imaging findings, discussed the case with the resident(s), and reviewed entered orders. I agree with the plan of care as outlined in this note, with these additional summaries/recommendations: After examination of the patient and review of the clinical data, I feel that this patient needs admission to the hospital for further treatment and evaluation. Patient is a 77 Female with a medical history of osteoarthritis, chronic T4 compression fracture with kyphosis, Left fibular fracture (March 2023), Primary Hypertension, Diabetes Mellitus Type II, Hyperlipidemia, 4cm thoracic aortic aneurysm, dilated cardiomyopathy HFrEF 25% s/p defibrillator followed by cardiology Dr. Pitts, & chronic atrial fibrillation, COPD/asthma on home O2 PRN 2/2 chronic tobacco use (>30 yrs), NIDDM2, dementia, chronic tremor, & anxiety/depression presents to [facility] emergency department on 05/04/2025 with chief complaint of shortness of breath. Patient diagnosed with acute on chronic hypoxic respiratory failure secondary to COPD exacerbation. Continue IV Solu-Medrol, DuoNebs, and azithromycin. Continue IV rocephin and azithromycin for for left lobe pneumonia most likely secondary to GNRs. Continue home Lasix for history of HFrEF, does not appear to be in CHF exacerbation at this time. Continue insulin sliding scale for DM II and we will continue to adjust insulin regimen while patient is on steroids to target blood sugar of 14-180 while hospitalized. Continue home brillinta for history fo CAD. Low dose Ativan okay for anxiety/insomnia if needed. Continue amiodarone for chronic atrial fibrillation. 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 Patient updated on the plan and in agreement. Please see residents note for additional details and management. Dr. Safia MD
[2025-05-04] MEDS: LACTULOSE SYRUP 20 GM/30 ML UDC 10 GM PO (18:46)
[2025-05-04] MEDS: INSULIN HUM REGULAR 1 UNIT/0.01 ML (PER UNIT) 5 UNIT SC (18:50)
--- NOTE | 2025-05-04 19:15 | PC.NURSE ---
Acquisition Editor assumes care of patient at this time, pt having breathing distress, provider at bedside order BiPaP at this time, pt suction with thick white secretion noted, pt tolerating BiPaP well with SaO2 greater than 90% and RR-30
--- NOTE | 2025-05-04 21:31 | PC.NURSE ---
report called to floor nurseRosalinda RN
[2025-05-04] MEDS: ALBUTEROL/IPRATROPIUM (Duoneb) RT SOL 3 ML NEBU INH (22:22)
[2025-05-04] MEDS: DONEPEZIL HCL 5 MG TABLET 10 MG PO (22:29)
[2025-05-04] MEDS: TICAGRELOR 90 MG TABLET PO (22:29)
[2025-05-04] MEDS: HEPARIN SOD INJ 5000 UNIT/ML VIAL SC (22:30)
[2025-05-04] MEDS: INSULIN LISPRO (AdmeLOG) 1 UNIT/0.01 ML UNIT 10 UNIT SC (22:53)
[2025-05-04] MEDS: HYDROcodone/APAP 7.5/325 TABLET 1 TAB PO (23:54)
[2025-05-05] VITALS (15 sets, daily range): BP systolic 99–134; BP diastolic 63–88; PULSE 66–98; RESP 18–28; TEMP 36.1–36.7; O2SAT 92–99; BMI 22.3
[2025-05-05] MEDS: ALBUTEROL/IPRATROPIUM (Duoneb) RT SOL 3 ML NEBU INH ×6 (02:39→23:40)
[2025-05-05] MEDS: INSULIN LISPRO (AdmeLOG) 1 UNIT/0.01 ML UNIT 5 UNIT SC ×2 (03:04→12:06)
[2025-05-05] MEDS: HEPARIN SOD INJ 5000 UNIT/ML VIAL SC ×3 (05:37→21:38)
[2025-05-05] MEDS: INSULIN LISPRO (AdmeLOG) 1 UNIT/0.01 ML UNIT SC ×4 (07:34→21:38)
[2025-05-05] MEDS: AMIODARONE HCL 200 MG TABLET 100 MG PO (09:01)
[2025-05-05] MEDS: TICAGRELOR 90 MG TABLET PO ×2 (09:08→21:36)
[2025-05-05] MEDS: Furosemide 40 MG TABLET PO (09:08)
[2025-05-05] MEDS: HYDROcodone/APAP 7.5/325 TABLET 1 TAB PO (09:08)
[2025-05-05] MEDS: ASPIRIN 81 MG CHEW PO (09:09)
[2025-05-05] MEDS: METOPROLOL SUCCINATE XL 25 MG TABCR PO (09:09)
[2025-05-05] MEDS: AZITHROMYCIN 250 MG TABLET 500 MG PO (09:09)
[2025-05-05] MEDS: PANTOPRAZOLE 40 MG TABLET PO (09:10)
[2025-05-05] MEDS: LACTULOSE SYRUP 20 GM/30 ML UDC 10 GM PO (09:10)
[2025-05-05] MEDS: INSULIN GLARGINE (Lantus) 5 UNIT/0.05 ML (PER 5 UNITS) SC ×2 (09:11→21:37)
[2025-05-05 10:12] LABS: Basophils % (Auto) 0 % (0-2.5); Eosinophils % (Auto) 0 % (0-10); Hematocrit 28.1 % (36.0-46.0); Hemoglobin 9.4 g/dL (12.0-16.0); Immature Granulocytes % (Auto) 1 % (0-0); Immature Granulocytes Auto 0.08 Thou/mm3 (0.00-0.00); Lymphocytes # (Auto) 0.2 Thou/mm3 (1.0-4.8); Lymphocytes % (Auto) 2 % (10-50); Mean Corpuscular HGB Conc 33.5 g/dl (31.0-37.0); Mean Corpuscular Hemoglobin 27.8 pg (25.0-35.0); Mean Corpuscular Volume 83 fL (80-100); Monocytes # (Auto) 0.2 Thou/mm3 (0.0-0.8); Monocytes % (Auto) 3 % (0-12); Neutrophils # (Auto) 8.6 Thou/mm3 (1.8-7.7); Neutrophils % (Auto) 94 % (37-80); Nucleated Red Blood Cell % 0 /100 WBC (0); Platelet Count 311 Thou/mm3 (140-440); Red Blood Count 3.38 Miln/mm3 (4.00-5.20); White Blood Count 9.1 Thou/mm3 (3.6-11.0)
[2025-05-05 10:40] LABS: Alanine Aminotransferase 65 U/L (10-49); Albumin, Serum 4.2 gm/dL (3.4-4.8); Alkaline Phosphatase 403 U/L (46-116); Anion Gap 12 (7-16); BUN/Creatinine Ratio 26 Ratio (12-20); Bilirubin,Total 1.6 mg/dL (0.3-1.2); Blood Urea Nitrogen 29 mg/dL (9-23); Calcium 9.3 mg/dL (8.3-10.6); Calcium (Corrected) 9.3 mg/dL (8.5-10.1); Carbon Dioxide 21.9 mMol/L (20.0-31.0); Chloride 104 mMol/L (98-107); Creatinine (Component) 1.1 mg/dL (0.6-1.3); Estimated Creatinine Clearance 36.4 mL/min (>60); Globulin 2.1 gm/dL (2.3-3.5); Glucose 330 mg/dL (74-106); Magnesium 1.8 mg/dL (1.6-2.6); Osmolality,Calculated 294 (275-295); Potassium 4.5 mMol/L (3.4-5.1); Sodium 138 mMol/L (136-145); Total Protein 6.3 gm/dL (5.7-8.2); eGFR 51 See Note
[2025-05-05] MEDS: cefTRIAXone/D5w 1gm IV premix 1 GM/50 ML BAG IV (12:05)
--- NOTE | 2025-05-05 15:20 | PC.PT ---
Patient is safe to ambulate to the bathroom with a FWW, 1 staff, and her O2. RN made aware.
--- NOTE | 2025-05-05 15:56 | PC.SS ---
Rounding Note: Patient receiving antibiotics, steroids. PT evaluation conducted. Possible SNF at time of d/c.
--- NOTE | 2025-05-05 16:04 | ESPR_ITS ---
Documentation for date of: 05/05/25 Subjective Subjective Interval history: Patient examined at bedside, overnight she was tachypneic and was started on BiPAP. Had bowel movement this morning, complaining of anxiety. Blood sugars still elevated 200-300. Started on 5 units glargine and continue sliding scale. At bedside patient is saturating at 90% on 2 L NC, appears dyspneic when conversing. Will continue azithromycin as part of COPD exacerbation and IV ceftriaxone for underlying pneumonia. PT evaluation pending, Ativan 0.5 x 1 for anxiety. Will touch base with pneumatic tool repairer Dr. Pitts in regards to Eliquis as she appears to only be on antiplatelet therapy at this time. Anticipate discharge next 24 hours. Exam Vital Signs Temp Pulse Resp BP Pulse Ox O2 Del Method O2 Flow Rate 97.0 F 70 18 115/69 94 L Nasal Cannula 2 05/05/25 12:00 05/05/25 15:40 05/05/25 15:40 05/05/25 12:00 05/05/25 15:40 05/05/25 12:00 05/05/25 15:40 FiO2 30 05/05/25 02:45 Narrative Exam General: elderly female, No acute distress, cooperative HEENT: NCAT, No JVD noted. Mucosa moist. Pupils are equal and reactive to light bilaterally Cardiovascular: Normal S1 and S2. Regular rate and rhythm. ICD Respiratory: Mild wheezing appreciated. On NC Abdomen: Soft, nontender, not distended, normal bowel sounds. Skin: Warm to touch, dry, senile purpura throughout extremities Musculoskeletal: No gross injuries. Able to move all 4 extremities. No pitting edema Neuro: Alert and oriented x3. No focal neuro deficits. Psych: Normal affect and mood Objective Labs 05/06/25 04:47 05/06/25 04:47 Labs: Laboratory Results - last 24 hr 05/04/25 05/05/25 15:27 09:38 WBC 6.5 9.1 RBC 3.54 L 3.38 L Hgb 9.9 L 9.4 L Hct 29.2 L 28.1 L MCV 83 83 MCH 28.0 27.8 MCHC 33.9 33.5 RDW Std Deviation 49.4 H 50.0 H Plt Count 306 D 311 Neut % (Auto) 76 94 H Lymph % (Auto) 13 2 L Foard % (Auto) 7 3 Eos % (Auto) 3 0 Baso % (Auto) 1 0 Neut # (Auto) 4.9 8.6 H Lymph # (Auto) 0.8 L 0.2 L Foard # (Auto) 0.4 0.2 Eos # (Auto) 0.2 0.0 Baso # (Auto) 0.0 0.0 Immature Gran # (Auto) 0.06 H 0.08 H Absolute Nucleated RBC 0.00 0.00 Immature Gran % 1 H 1 H Nucleated RBC % 0 0 D-Dimer 1000 H Sodium 138 Potassium 4.5 Chloride 104 Carbon Dioxide 21.9 Anion Gap 12 BUN 29 H Creatinine 1.1 Estim Creat Clear Calc 36.4 L eGFR 51 L BUN/Creatinine Ratio 26 H Glucose 330 H D Calculated Osmolality 294 Calcium 9.3 Corrected Calcium 9.3 Magnesium 1.8 Total Bilirubin 1.6 H ALT 65 H Alkaline Phosphatase 403 H D Total Protein 6.3 Albumin 4.2 Globulin 2.1 L Albumin/Globulin Ratio 2.0 Quality Measures Quality Measures none Advance care planning discussed with:: patient Assessment & Plan Assessment Current Active Medications: Generic Name Dose Route Start Last Admin Trade Name Freq PRN Reason Stop Dose Admin Acetaminophen 650 mg 05/04/25 18:21 Acetaminophen 325 Mg Tablet PO 06/03/25 18:20 Q6H PRN Fever >100.3 or pain 1-3 Hydrocodone Bitart/Acetaminophen 1 tab 05/04/25 18:33 05/05/25 09:08 Hydrocodone/Apap 7.5/325 Tablet PO 05/09/25 18:32 1 tab BID PRN Administration pain 7-10 Albuterol/Ipratropium 3 ml 05/04/25 19:00 05/05/25 15:39 Albuterol/Ipratropium (Duoneb) Rt Renay 3 Ml Nebu INH 06/03/25 18:59 3 ml Q4HRRT REKHA Administration Albuterol/Ipratropium 3 ml 05/04/25 18:21 Albuterol/Ipratropium (Duoneb) Rt Renay 3 Ml Nebu INH 06/03/25 18:20 X1 PRN SHORTNESS OF BREATH Amiodarone HCl 100 mg 05/05/25 09:00 05/05/25 09:01 Amiodarone Hcl 200 Mg Tablet PO 06/04/25 08:59 100 mg DAILY REKHA Administration Aspirin 81 mg 05/05/25 09:00 05/05/25 09:09 Aspirin 81 Mg Chew PO 06/04/25 08:59 81 mg QDAY REKHA Administration Azithromycin 500 mg 05/05/25 09:00 05/05/25 09:09 Azithromycin 250 Mg Tablet PO 05/12/25 08:59 500 mg QDAY REKHA Administration Protocol Dextrose 25 ml 05/04/25 18:27 Dextrose 50%-Water Inj 50 Ml Syringe IV 06/03/25 18:26 Q15MIN PRN BG 50-70 responsive npo pt Dextrose 50 ml 05/04/25 18:27 Dextrose 50%-Water Inj 50 Ml Syringe IV 06/03/25 18:26 Q15MIN PRN BG <50 OR BG <70 & pt unresponsive Donepezil HCl 10 mg 05/04/25 21:00 05/04/25 22:29 Donepezil Hcl 5 Mg Tablet PO 06/03/25 20:59 10 mg QPM REKHA Administration Furosemide 40 mg 05/05/25 09:00 05/05/25 09:08 Furosemide 40 Mg Tablet PO 06/04/25 08:59 40 mg DAILY REKHA Administration Glucagon 1 mg 05/04/25 18:27 Glucagon Inj 1 Mg Vial IM Q15MIN PRN BG <70, and no IV access Heparin Sodium (Porcine) 5,000 unit 05/04/25 22:00 05/05/25 14:09 Heparin Sod Inj 5000 Unit/Ml Vial SC 05/18/25 21:59 5,000 unit Q8HR REKHA Administration Ceftriaxone Sodium/Dextrose 1 gm in 50 mls @ 100 mls/hr 05/05/25 11:00 05/05/25 12:05 Rocephin/D5w 1gm Iv Premix IV 05/12/25 10:59 100 mls/hr QDAY REKHA Administration Insulin Glargine 5 unit 05/05/25 21:00 Insulin Glargine (Lantus) 5 Unit/0.05 Ml (Per 5 Units) SC 06/04/25 20:59 HS REKHA Insulin Human Lispro 0 unit 05/05/25 07:30 05/05/25 12:06 Insulin Lispro (Admelog) 1 Unit/0.01 Ml Unit SC 06/04/25 07:29 4 unit ACHS REKHA Administration Protocol Lactulose 10 gm 05/04/25 18:30 05/05/25 09:10 Lactulose Syrup 20 Gm/30 Ml Udc PO 06/03/25 18:29 10 gm QDAY REKHA Administration Protocol Lorazepam 0.5 mg 05/05/25 14:17 Lorazepam 0.5 Mg Tablet PO 05/10/25 14:16 X1 PRN ANXIETY Methylprednisolone Sodium Succinate 40 mg 05/05/25 06:00 05/05/25 14:09 Methylprednisolone Sod Succ 40 Mg Vial IVP 05/12/25 05:59 40 mg TID REKHA Administration Metoprolol Succinate 25 mg 05/05/25 09:00 05/05/25 09:09 Metoprolol Succinate Xl 25 Mg Tabcr PO 06/04/25 08:59 25 mg QDAY REKHA Administration Ondansetron HCl 4 mg 05/04/25 18:21 Ondansetron Inj 2 Mg/Ml Inj 2 Ml IVP 06/03/25 18:20 Q6H PRN NAUSEA OR VOMITING Protocol Pantoprazole Sodium 40 mg 05/05/25 09:00 05/05/25 09:10 Pantoprazole 40 Mg Tablet PO 06/04/25 08:59 40 mg QDAY REKHA Administration Ticagrelor 90 mg 05/04/25 21:00 05/05/25 09:08 Ticagrelor 90 Mg Tablet PO 06/03/25 20:59 90 mg BID REKHA Administration Plan Ella Cordova is 79 yr F osteoarthritis, chronic T4 compression fracture with kyphosis, left fibular fracture (March 2023), primary hypertension, diabetes mellitus type II, hyperlipidemia, 4cm thoracic aortic aneurysm, dilated cardiomyopathy HFrEF 25% s/p defibrillator followed by cardiology Dr. Pitts, & chronic atrial fibrillation on Eliquis, COPD/asthma on home O2 PRN 2/2 chronic tobacco use (>30 yrs), NIDDM2, dementia, chronic tremor, & anxiety/depression presenting to ED due to worsening shortness of breath and right-sided rib pain. Patient was in PCP clinic today seeing Dr. Nancy Obando when she was having noticeable shortness of breath. PCP then encouraged patient to go to ED for evaluation. Admit patient for acute on chronic hypoxic respiratory failure secondary to COPD exacerbation and treatment of pneumonia. #Acute on chronic hypoxic respiratory failure 2/2 #COPD exacerbation #CAP Having worsening SOB and chest pain worse with palpation, sent by PCP for workup. Patient uses 2 L oxygen at home. Chest x-ray mild pneumonia, x-ray ribs negative for any fractures. She was given ceftriaxone, doxycycline, 1 L NS, IV methylprednisone 125 Mg x 1, albuterol x 1 while in ED. ?Azithromycin 500 mg p.o. daily (05/04- -IV ceftriaxone 1g daily (05/04- -IV Solu-Medrol 40 mg IVP Q8HR (05/04- -Duonebs Q4HRRT scheduled -Oxygen Support, goal of 88-92% SpO2 #Hx atrial fibrilation #s/p ICD CHADsVASc score 7--11%risk/yr Ttroponins negative, EKG showed HR 90s in [employer]. Takes amiodarone 100mg daily, metoprolol 25 mg daily for rate control, Asprin + Brilinta 90mg BID -resumed -continue to monitor electolytes keeping potassium >4.0 and Mg >2.0 -Will touch base with pneumatic tool repairer Dr. Pitts in regards to Eliquis as she appears to only be on antiplatelet therapy at this time. # Ivl-jymbvfe-ocylrzivw type 2 diabetes, poorly controlled On admission initial glucose 207 but went up to 400 few hours later. Last A1c 7.5 on 04/18. Patient takes metformin 500 BID Jardiance for diabetes at home. Patient received 10 units regular insulin in ED. -Held home medications -Bedside blood glucose checks ACHS -start glargine 5units HS -Insulin lispro sliding scale -Carb consistent low diet #Hx 4cm thoracic aortic aneurysm CTA chst shows ascending thoracic aorta 4.2 cm -BP control -monitor with outpatient imaging every 6mo-1yr #Hx HFrEF (EF 25%) Echo 04/27/2024 Showed severe systolic dysfunction, global hypokinesis, EF 20- 25%. She follows with Dr. Pitts outpatient. Had ICD replaced echo in the hospital 1-2 months ago. Does not appear to be in an exacerbation. - Continue metoprolol 25 mg daily -Spironolactone 25 mg daily ? Furosemide 40 mg daily #Hx Dementia #Hx depression #Hx OA with chornic pain #Anxiety -resumed donepezil 10 mg ? Patient states she takes sertraline 50 mg daily for depression, med rec pending ? Resumed hydrocodone 7.5 BID PRN for joint pain -0.5mg Ativan PRN x1 for anxiety Health maintenance: Dispo: tele COPD exacerbation, PT pending FEN: low carb DVT prophylaxis: Subcu heparin CODE STATUS: DNR The patient's management plan was discussed with my attending physician Dr. Baig. Grace Cheung, PGY-1 Attending Provider Attestation/Addendum I have examined the patient, reviewed labs and imaging findings, discussed the case with the resident(s), and reviewed entered orders. I agree with the plan of care as outlined in this note, with these additional summaries/recommendations: Patient is a 77 Female with a medical history of osteoarthritis, chronic T4 compression fracture with kyphosis, Left fibular fracture (March 2023), Primary Hypertension, Diabetes Mellitus Type II, Hyperlipidemia, 4cm thoracic aortic aneurysm, dilated cardiomyopathy HFrEF 25% s/p defibrillator followed by cardiology Dr. Pitts, & chronic atrial fibrillation, COPD/asthma on home O2 PRN 2/2 chronic tobacco use (>30 yrs), NIDDM2, dementia, chronic tremor, & anxiety/depression presents to [facility] emergency department on 05/04/2025 with chief complaint of shortness of breath. Patient seen at bedside. No acute overnight events. We will continue treatment for acute on chronic hypoxic respiratory failure secondary to COPD exacerbation. Continue IV Solu-Medrol, DuoNebs, and azithromycin. Continue IV rocephin and azithromycin for for left lobe pneumonia most likely secondary to GNRs. Continue home Lasix for history of HFrEF, does not appear to be in CHF exacerbation at this time. Continue insulin sliding scale for DM II and we will continue to adjust insulin regimen while patient is on steroids to target blood sugar of 14- 180 while hospitalized. Continue home brillinta for history fo CAD. Low dose Ativan okay for anxiety/insomnia if needed. Continue amiodarone for chronic atrial fibrillation. We will follow-up with patients pneumatic tool repairer as it appears she was taken off eliquis at some point likely secondary to bleeding risk. Patient updated on the plan and in agreement. Please see residents note for additional details and management. Dr. Safia MD
[2025-05-05] MEDS: INSULIN LISPRO (AdmeLOG) 1 UNIT/0.01 ML UNIT 10 UNIT SC (17:25)
[2025-05-05] MEDS: DONEPEZIL HCL 5 MG TABLET 10 MG PO (21:36)
[2025-05-06] VITALS (14 sets, daily range): BP systolic 94–118; BP diastolic 66–79; PULSE 66–94; RESP 17–22; TEMP 35.9–36.8; O2SAT 94–98; BMI 22.3
--- NOTE | 2025-05-06 02:52 | ESCONSULT_ITS ---
RE: SAMUEL DALAL : 1945 DATE OF CONSULTATION: 05/05/2025 CONSULTING PHYSICIAN: Hospitalist. REASON FOR CONSULTATION: Evaluation of shortness of breath, COPD and possible congestive heart failure. CHIEF COMPLAINT: Shortness of breath. HISTORY OF PRESENT ILLNESS: The patient is a 79-year-old lady with a long- standing history of ischemic heart disease, ischemic and nonischemic cardiomyopathy, ejection fraction of 30%, status post ICD implantation, multiple defibrillator discharges in the past, paroxysmal AFib, known CAD, stent placement in left circumflex artery in 10/2024. Has been on dual antiplatelet drug therapy, aspirin and Brilinta, since then. Came to the hospital with severe shortness of breath. Appears to be acute exacerbation of COPD, but there is also some element of congestive heart failure and possible pneumonia as well. She is feeling better, but still having a lot of shortness of breath with wheezing. Does not complain of any chest pain. She has no orthopnea or paroxysmal nocturnal dyspnea . ALLERGIES: NONE. MEDICATIONS: The patient takes amiodarone for atrial fibrillation and history of multiple defibrillator discharges. She is also on low-dose aspirin 81 mg daily, Brilinta 90 mg twice daily, insulin for diabetes mellitus. She also should be on Lasix 40 mg daily and donepezil for dementia, metoprolol succinate 25 mg daily. She is a diabetic, on multiple medications as well. Other medications include spironolactone 25 mg daily. PAST MEDICAL HISTORY: Chronic systolic heart failure, nonischemic and ischemic cardiomyopathy, status post stent placement to circumflex artery in 10/2024 and history of ICD implantation, multiple discharges, multiple , severe peripheral arterial occlusive disease and claudication, osteoarthritis. SOCIAL HISTORY: She is single and lives in a assisted setting. She does not smoke or drink alcoholic beverages. FAMILY HISTORY: Noncontributory. PHYSICAL EXAMINATION: GENERAL: A well-nourished female, alert, awake, in no acute distress. VITAL SIGNS: Her blood pressure is 99/64, pulse rate is 70. NECK: Supple. JVD is still present. CHEST: Symmetrical. LUNGS: Decreased breath sounds. Few expiratory wheezes. HEART: S1, S2 distant. ABDOMEN: Thin and soft. EXTREMITIES: Mild edema. GENITOURINARY AND RECTAL: Not performed. WIRE SETTER: Unremarkable. IMPRESSION/ASSESSMENT: Acute hypoxic respiratory failure, secondary to combination of chronic obstructive pulmonary disease exacerbation as well as congestive heart failure. RECOMMENDATIONS: Continue the therapy and COPD and pneumonia treatment. I would also recommend continuing diuretic therapy with a definite element of congestive heart failure. I would recommend going up on the Lasix dosage to 40 mg daily. I also recommend continuing spironolactone 25 mg daily as well. Continue aspirin and ticagrelor combination. I am purposefully not giving her triple therapy because of risk of bleeding since the patient, though has history of paroxysmal atrial fibrillation, she never had any stroke. After one year, usually aspirin will be continued and discontinue Brilinta and change it to Eliquis at that time, but for now, aspirin and Brilinta will be continued. Also, continue low-dose beta cong therapy; 25 mg should be sufficient. DT: 23:49:30 TT: 01:11:00 Ref: [id number] - TID: [id number] [facility]
[2025-05-06] MEDS: HYDROcodone/APAP 7.5/325 TABLET 1 TAB PO ×2 (05:10→19:20)
[2025-05-06] MEDS: HEPARIN SOD INJ 5000 UNIT/ML VIAL SC ×3 (05:11→21:17)
[2025-05-06 06:01] LABS: Basophils % (Auto) 0 % (0-2.5); Eosinophils % (Auto) 0 % (0-10); Hematocrit 29.8 % (36.0-46.0); Hemoglobin 9.6 g/dL (12.0-16.0); Immature Granulocytes % (Auto) 1 % (0-0); Immature Granulocytes Auto 0.09 Thou/mm3 (0.00-0.00); Lymphocytes # (Auto) 0.3 Thou/mm3 (1.0-4.8); Lymphocytes % (Auto) 3 % (10-50); Mean Corpuscular HGB Conc 32.2 g/dl (31.0-37.0); Mean Corpuscular Hemoglobin 28.1 pg (25.0-35.0); Mean Corpuscular Volume 87 fL (80-100); Monocytes # (Auto) 0.3 Thou/mm3 (0.0-0.8); Monocytes % (Auto) 3 % (0-12); Neutrophils # (Auto) 9.9 Thou/mm3 (1.8-7.7); Neutrophils % (Auto) 93 % (37-80); Nucleated Red Blood Cell % 0 /100 WBC (0); Platelet Count 309 Thou/mm3 (140-440); RDW Standard Deviation 51.3 fL (36.4-46.3); Red Blood Count 3.42 Miln/mm3 (4.00-5.20); White Blood Count 10.6 Thou/mm3 (3.6-11.0)
[2025-05-06 06:23] LABS: Alanine Aminotransferase 66 U/L (10-49); Albumin, Serum 4.1 gm/dL (3.4-4.8); Alkaline Phosphatase 361 U/L (46-116); Anion Gap 13 (7-16); BUN/Creatinine Ratio 26 Ratio (12-20); Bilirubin,Total 1.2 mg/dL (0.3-1.2); Blood Urea Nitrogen 29 mg/dL (9-23); Calcium 9.1 mg/dL (8.3-10.6); Calcium (Corrected) 9.1 mg/dL (8.5-10.1); Carbon Dioxide 22.7 mMol/L (20.0-31.0); Chloride 102 mMol/L (98-107); Creatinine (Component) 1.1 mg/dL (0.6-1.3); Estimated Creatinine Clearance 36.4 mL/min (>60); Globulin 2.1 gm/dL (2.3-3.5); Glucose 269 mg/dL (74-106); Osmolality,Calculated 290 (275-295); Potassium 4.1 mMol/L (3.4-5.1); Sodium 138 mMol/L (136-145); Total Protein 6.2 gm/dL (5.7-8.2); eGFR 51 See Note
[2025-05-06] MEDS: ALBUTEROL/IPRATROPIUM (Duoneb) RT SOL 3 ML NEBU INH ×4 (06:43→22:40)
--- NOTE | 2025-05-06 07:26 | PC.SS ---
SUPERVISOR PAINT DEPARTMENT conducted bedside contact with the patient conduct initial assessment and to discuss discharge planning.? Patient confirmed demographic information.? Patient resides alone at home.? Patient possesses a caregiver, Terrence Bentley .? Patient utilizes a walker to assist with ambulation.? Patient utilizes oxygen at home.? Per patient oxygen only for night time use.? Vendor for oxygen is [employer].? Patient requires assistance with completion of ADL?s.? Patient identified Damaris Bentley as surrogate medical decision maker. ?Patient?s PCP is Nancy Obando.? Dr. Pitts is the patient?s flight radio operator.? Patient does not participate with dialysis.? Patient utilizes [facility] for medication services.? SUPERVISOR PAINT DEPARTMENT informed patient that PT recommending SNF placement.? Patient declined SNF placement.? Patient to transition home with home health services.? Preferred agency is [facility].? continuous miner operator will provide transportation on behalf of the patient. ?No further discharge needs identified by the patient.? No further intervention required at this time, drug abuse social worker will be available to address any further concerns.? Next of Kin: Terrence Bentley D/C Plan: Home
[2025-05-06] MEDS: INSULIN LISPRO (AdmeLOG) 1 UNIT/0.01 ML UNIT SC ×4 (07:39→21:16)
--- NOTE | 2025-05-06 08:45 | PC.SS ---
ORDER PROCESSING MANAGER informed bedside nurse to conduct room air evaluation on behalf of the patient to confirm continuos need for home oxygen. ORDER PROCESSING MANAGER updated neighborhood planner.
[2025-05-06] MEDS: LACTULOSE SYRUP 20 GM/30 ML UDC 10 GM PO (09:03)
[2025-05-06] MEDS: SPIRONOLACTONE 25 MG TABLET PO (09:04)
[2025-05-06] MEDS: ASPIRIN 81 MG CHEW PO (09:04)
[2025-05-06] MEDS: AZITHROMYCIN 250 MG TABLET 500 MG PO (09:04)
[2025-05-06] MEDS: AMIODARONE HCL 200 MG TABLET 100 MG PO (09:05)
[2025-05-06] MEDS: PANTOPRAZOLE 40 MG TABLET PO (09:05)
[2025-05-06] MEDS: METOPROLOL SUCCINATE XL 25 MG TABCR PO (09:05)
[2025-05-06] MEDS: Furosemide 40 MG TABLET PO (09:06)
[2025-05-06] MEDS: TICAGRELOR 90 MG TABLET PO ×2 (09:07→21:15)
[2025-05-06] MEDS: cefTRIAXone/D5w 1gm IV premix 1 GM/50 ML BAG IV (09:07)
[2025-05-06] MEDS: LORazepam 0.5 MG TABLET PO (09:19)
--- NOTE | 2025-05-06 09:52 | ESDS_ITS ---
Planned Discharge Date 05/06/25 DS: Providers Provider Date of admission: 05/04/25 21:43 Primary care physician: Nancy Obando NP Admitting Provider: Kenneth Baig MD Attending Provider on Admission: Kenneth Baig MD Consults: 05/04/25 18:37 PT [Referral Physical Therapy] Routine Comment: Physician Instructions: 05/05/25 17:46 Consult to Cardiology Routine Comment: Consulting Provider: Veronica Pitts Attending Provider on DC: Gabriela Zavala MD Discharging Provider: Gabriela Zavala MD DS: Diagnosis Problem List Completed Was Problem List Reviewed/Reconciled?: Yes Hospital Course Hospital Course Hospital course: 79-year-old female with past medical history of longstanding ischemic cardiomyopathy, HFrEF 30% status post ICD implantation, history of primary hypertension, DM type II, hyperlipidemia, COPD on 2 L nasal cannula at home was admitted for acute on chronic hypoxic respiratory failure secondary due to COPD exacerbation in the setting of community-acquired pneumonia. Patient started on IV steroids, antibiotics treatment IV initiated, patient received scheduled as well as as needed breathing treatment. Chronic conditions were managed as needed. Patient condition during hospital stay significantly improved, patient was back to her baseline, saturating 95% on 2 L nasal cannula, labs were stable. Cardiology was on the case regarding his chronic heart failure, and medication management. Today upon my evaluation patient was hemodynamically stable, denied any shortness of breath, cough, chest pain, or any other symptoms. Patient will be discharged home with a rescue DuoNeb inhaler as needed, continue antibiotics for 4 more days to complete pneumonia course treatment, continue the rest of the home medication as prescribed, follow-up outpatient with PCP and Dr. Pitts in 1 to 2 weeks after discharge. All questions and concerns were addressed. Patient given verbalized understanding. #Acute on chronic hypoxic respiratory failure?resolved #COPD exacerbation?resolved #Community-acquired pneumonia #History of A-fib #HFrEF EF of 25%, s/p ICD #[id number] DM type II #History of dementia #History of depression #History of OA with chronic pain #Anxiety Patient care was discussed with attending physician Dr. Safia Zavala MD PGY-2 I have carefully reviewed this document. Due to imperfections in the voice software, there could be grammatical errors including phonetic/typographic errors. This in no way compromises the medical care the patient is receiving Time Spent with Patient Time attestation: Total time spent providing and/or coordinating discharge services: Time spent: Greater than 30 minutes Home Health Home Health Referral Orders: 05/06/25 09:47 Home Health Referral Routine Reason For Exam: Physical therapy Home-Bound The patient must either because of illness or injury, need the aid of supportive devices such as crutches, canes, wheelchairs, and walkers; the use of special transportation; or the assistance of another person in order to leave their place of residence; OR have a condition such that leaving his or her home is medically contraindicated. In addition, the patient also meets the following criteria: patient is normally unable to leave the home and leaving home requires considerable taxing effort. Addendum to Home Health Certification Practitioner's Certification: I certify that the patient has been under my care in the hospital and the care of attending physician (see below). We had a zewu-wu-bqfb encounter on (see date below). My clinical findings indicate that the patient is home bound per the above criteria and the Home Health Services noted in these orders are medically necessary. The primary reason for the jqyn-yl-zteb encounter is related to the fact that the patient requires home health services. Date Certifying Djlr-um-Vxek Physician Encounter: 05/04/25 Physician's Name who will Assume Oversight for HH Services: Daphne Velasquez BEHAVIORAL HEALTH TECH - Community Resources: No PT to Evaluate: Yes PT to evaluate and provide a treatmnet plan to increase patient's mobility an d strength. Wound Care: No IV Therapy: No RN Safety Evaluation: Yes RN to evaluate and create a plan of care that will produce positive outcomes. Palliative Treatment: No Palliative treatment and evaluate the need for hospice. Home Health Aide - Personal Care: Yes Home Health Aide to assist with any ADL's. Exam Vital Signs Temp Pulse Resp BP Pulse Ox O2 Del Method O2 Flow Rate 96.7 F L 90 19 113/79 94 L Nasal Cannula 2 05/06/25 08:00 05/06/25 09:06 05/06/25 08:00 05/06/25 09:06 05/06/25 08:00 05/06/25 08:00 05/06/25 08:00 FiO2 30 05/06/25 08:00 Narrative Exam GENERAL: no acute distress, AAO x3, frail female HEENT: Head AT/ NC. Mucous membranes moist. PERRL. NECK: Supple, no lymphadenopathy, no carotid bruits. CARDIOVASCULAR: RRR. No pitting edema of bilateral LEs. ICD on left side noted RESPIRATORY: No wheezing, rhonchi, crackles. GASTROINTESTINAL: Abdomen soft, non tender no palpable masses. Bowel sounds present in all 4 quadrants. MUSCULOSKELETAL:? No cyanosis or edema, no visible joint swelling. NEUROLOGICAL: CN II-XII grossly intact. No focal deficits. Sensation intact, symmetric. PSYCHIATRIC: Awake and alert, not agitated, normal mood and affect. INTEGUMENTARY: No obvious rashes, no jaundice, normal turgor. Discharge Plan Plan Patient Disposition: HOME (Self Care) Patient condition on transfer: Stable Prescriptions/Referrals Prescriptions/Med Rec: New cefuroxime axetil 500 mg tablet 500 mg PO Q12H 4 Days Qty: 8 0RF doxycycline monohydrate 100 mg tablet 100 mg PO BID 4 Days Qty: 8 0RF ipratropium-albuterol 0.5 mg-3 mg(2.5 mg base)/3 mL solution for nebulization 3 ml inhalation Q4H PRN (Reason: shortness of breath or wheezing) Qty: 90 0RF hydrocodone-acetaminophen 7.5-325 mg tablet 1 tab PO BID MDD 2 tab PRN (Reason: pain) Qty: 5 0RF Continued hydrocodone-acetaminophen 7.5-325 mg tablet 1 tab PO BID MDD 15 mg PRN (Reason: pain) Qty: 60 0RF metformin 500 mg tablet 500 mg PO BID Patient Comments: TAKE 1 TABLET BY MOUTH TWICE DAILY donepezil 10 mg Tablet 10 mg PO QPM metoprolol succinate 25 mg tablet extended release 24 hr 25 mg PO QDAY Patient Comments: TAKE ONE TABLET BY MOUTH WITH FOOD EVERY DAY FOR BLOOD PRESSURE spironolactone 25 mg Tablet 25 mg PO QDAY aspirin 81 mg Tablet,Chewable 81 mg PO QDAY Qty: 30 5RF ticagrelor [Brilinta] 90 mg Tablet 90 mg PO BID Qty: 60 5RF furosemide 40 mg tablet 40 mg PO DAILY amiodarone 100 mg tablet 100 mg PO DAILY dapagliflozin propanediol 10 mg tablet 10 mg PO QDAY Patient Comments: TAKE ONE TABLET BY MOUTH EVERY MORNING FOR DIABETES magnesium oxide 400 mg (241.3 mg magnesium) tablet 400 mg PO QDAY 30 Days Qty: 30 2RF Discontinued nitrofurantoin 100 mg Capsule 100 mg PO BID Rx Instructions: must administer with a meal/food ciprofloxacin HCl 500 mg Tablet 500 mg PO BID amiodarone 200 mg tablet 200 mg PO BID 30 Days Qty: 60 2RF doxycycline monohydrate 100 mg capsule 100 mg PO BID Qty: 14 0RF Referrals: Nancy Obando MONOGRAM MAKER [Primary Care Provider] - Patient/Caregiver Discharge Instructions Discharge Activity: as per physical therapy Other Discharge Activity Instructions:: Take cefuroxime 500 mg twice daily for 4 more days Take doxycycline 100 mg twice daily for another 4 more days to complete antibiotic course You are prescribed rescue inhaler for shortness of breath and wheezing as needed, please read the instructions for using Continue the rest of medication Continue Farxiga and metformin to control blood sugar, You have amiodarone 2 different doses, please continue with amiodarone 100 mg once daily, please disregard all the medication that you are not actively taking Repeat CBC/CMP in 1 to 2 weeks after discharge Please follow-up with primary care physician in 1 to 2 weeks after discharge Follow-up with Dr. Pitts, adjust medication as needed Please return to ED anytime symptoms worsens. Education Materials: Chronic Lung Disease Avoiding ..., Chronic Lung Disease Tips for ... Print Language: Upper Sorbian Stand Alone Forms: [facility] Award Info., Patient Portal Info Letter Discharge Order Discharge Orders: Discharge (Routine); Ordered 05/06/25 Ordered By: Gabriela Zavala Quality Discharge Quality Measures VTE prophylaxis Attestestation MD Attestation I have examined the patient, reviewed labs and imaging findings, discussed the case with the resident(s), and reviewed entered orders. I agree with the plan of care as outlined in this note. Time Spent: [address] Safia MD
--- NOTE | 2025-05-06 10:05 | PC.NURSE ---
Patient saturating at 90% on room air.
--- NOTE | 2025-05-06 10:47 | PC.NURSE ---
discharge pending arrival of oxygen.
--- NOTE | 2025-05-06 15:05 | PC.SS ---
Addendum entered by Alena Peralta 05/06/25 15:31: SS follow up note; SS spoke to patient's healthcare representative Terrence and she informed SS that she is able to diamond picker the 02 and will be on her way. SS provided Terrence with [facility] information. Terrence will transport patient with 02 tank. SS contacted [facility] and spoke to Bailey and she informed SS to inform sample case porter to bring the old concentrator that way they can replace it with the new concentrator and 02 Tank. Terrence informed SS she will transport once she picks up 02; SS notified patient's nurse Chuy. Original Note: SS follow up note; SS contacted [facility] for 02 delivery at bedside, patient is already an established patient. [facility] informed SS that family would have to diamond picker 02 tank. if not the delivery will have to be for tomorrow. [facility] informed SS that they will try to deliver today, however is not guaranteed. SS will contact patient's healthcare representative to see if she is able to diamond picker the 02 tank from [facility]. SS updated patients nurse Chuy.
--- NOTE | 2025-05-06 15:14 | PC.NURSE ---
patient saturating at 86% on room air
--- NOTE | 2025-05-06 16:30 | PC.CM ---
Patient is opened to [facility]. If patient discharges home she will need new orders.
[2025-05-06] MEDS: INSULIN LISPRO (AdmeLOG) 1 UNIT/0.01 ML UNIT 3 UNIT SC (16:50)
--- NOTE | 2025-05-06 17:23 | PC.SS ---
LOAD TESTER notified by bedside nurse that patient's friend, Damaris; only able to obtain concentrator from [facility]. Per [facility] staff, order for portable oxygen not obtained. surgical services assistant to re-submit order. LOAD TESTER notified the patient. D/C to be held until oxygen can be obtained.
[2025-05-06] MEDS: DONEPEZIL HCL 5 MG TABLET 10 MG PO (21:15)
[2025-05-06] MEDS: INSULIN GLARGINE (Lantus) 5 UNIT/0.05 ML (PER 5 UNITS) SC (21:16)
--- NOTE | 2025-05-06 21:51 | PC.NURSE ---
REPORT GIVEN TO GERALD GHSOH MS .PT WILL BE TRANSFERRED TO [phone] ON BED WITH BELONGINGS.
[2025-05-07] VITALS (13 sets, daily range): BP systolic 95–108; BP diastolic 54–87; PULSE 63–94; RESP 17–22; TEMP 36–36.9; O2SAT 95–99
--- NOTE | 2025-05-07 00:26 | ESPR_ITS ---
RE: SAMUEL DALAL : 1945 DATE OF SERVICE: 05/06/2025 The patient is a 79-year-old lady with a history of ischemic cardiomyopathy, chronic systolic heart failure, previous stent placement, congestive heart failure, COPD. Admitted to the hospital with shortness of breath, COPD acute exacerbation and a combination of heart failure. Continues to improve gradually. Oxygen saturation improved. She is on 2 L nasal cannula . PHYSICAL EXAMINATION: Vital Signs: Blood pressure 112/66, pulse 91. HEENT: Head is atraumatic, normocephalic. Eyes normal. ENT normal. Neck: Supple. No JVD. Carotid pulse felt, but no bruits. Chest: Symmetrical. Lungs: Decreased breath sounds at bases. Heart: S1, S2 irregular. Abdomen: Thin and soft. EXTREMITIES: Mild edema. IMPRESSION/ASSESSMENT: 1. The patient has hypoxic respiratory failure secondary to a combination of chronic obstructive pulmonary disease, congestive heart failure. 2. Ischemic cardiomyopathy, status post stent placement. 3. Status post implantable cardioverter defibrillator implantation. RECOMMENDATIONS: Continue oxygen supplement and antibiotic therapy as well as her regular medications, including amiodarone because of the arrhythmias. The patient had a stent placed less than a year ago. She will be on aspirin and Brilinta for now. Eliquis is deferred. DT: 21:39:35 TT: 22:58:00 Ref: [id number] - TID: [id number]
[2025-05-07] MEDS: ALBUTEROL/IPRATROPIUM (Duoneb) RT SOL 3 ML NEBU INH ×4 (02:53→14:22)
[2025-05-07] MEDS: HEPARIN SOD INJ 5000 UNIT/ML VIAL SC ×2 (05:18→15:23)
[2025-05-07 05:47] LABS: Basophils % (Auto) 0 % (0-2.5); Eosinophils % (Auto) 0 % (0-10); Hematocrit 28.6 % (36.0-46.0); Hemoglobin 9.6 g/dL (12.0-16.0); Immature Granulocytes % (Auto) 1 % (0-0); Immature Granulocytes Auto 0.07 Thou/mm3 (0.00-0.00); Lymphocytes # (Auto) 0.6 Thou/mm3 (1.0-4.8); Lymphocytes % (Auto) 5 % (10-50); Mean Corpuscular HGB Conc 33.6 g/dl (31.0-37.0); Mean Corpuscular Volume 83 fL (80-100); Monocytes # (Auto) 0.7 Thou/mm3 (0.0-0.8); Monocytes % (Auto) 6 % (0-12); Neutrophils # (Auto) 10.2 Thou/mm3 (1.8-7.7); Neutrophils % (Auto) 88 % (37-80); Nucleated Red Blood Cell % 0 /100 WBC (0); Platelet Count 332 Thou/mm3 (140-440); RDW Standard Deviation 49.3 fL (36.4-46.3); Red Blood Count 3.43 Miln/mm3 (4.00-5.20); White Blood Count 11.6 Thou/mm3 (3.6-11.0)
[2025-05-07 06:12] LABS: Alanine Aminotransferase 48 U/L (10-49); Albumin/Globulin Ratio 1.9 (1.2-2.2); Alkaline Phosphatase 312 U/L (46-116); Anion Gap 12 (7-16); Aspartate Amino Transferase 17 U/L (0-34); BUN/Creatinine Ratio 31 Ratio (12-20); Blood Urea Nitrogen 40 mg/dL (9-23); Calcium 8.9 mg/dL (8.3-10.6); Calcium (Corrected) 8.9 mg/dL (8.5-10.1); Carbon Dioxide 23.6 mMol/L (20.0-31.0); Chloride 101 mMol/L (98-107); Creatinine (Component) 1.3 mg/dL (0.6-1.3); Estimated Creatinine Clearance 30.8 mL/min (>60); Globulin 2.1 gm/dL (2.3-3.5); Glucose 186 mg/dL (74-106); Osmolality,Calculated 288 (275-295); Potassium 3.8 mMol/L (3.4-5.1); Sodium 137 mMol/L (136-145); Total Protein 6.1 gm/dL (5.7-8.2); eGFR 42 See Note
[2025-05-07] MEDS: HYDROcodone/APAP 7.5/325 TABLET 1 TAB PO ×2 (07:07→15:26)
[2025-05-07] MEDS: INSULIN LISPRO (AdmeLOG) 1 UNIT/0.01 ML UNIT SC ×2 (07:20→11:46)
--- NOTE | 2025-05-07 08:09 | PC.SS ---
SS FOLLOW UP NOTE; SS sent 02 referral through [employer] platform to [facility].
[2025-05-07] MEDS: LACTULOSE SYRUP 20 GM/30 ML UDC 10 GM PO (08:39)
[2025-05-07] MEDS: cefTRIAXone/D5w 1gm IV premix 1 GM/50 ML BAG IV (08:39)
[2025-05-07] MEDS: ASPIRIN 81 MG CHEW PO (08:40)
[2025-05-07] MEDS: SPIRONOLACTONE 25 MG TABLET PO (08:40)
[2025-05-07] MEDS: AZITHROMYCIN 250 MG TABLET 500 MG PO (08:40)
[2025-05-07] MEDS: TICAGRELOR 90 MG TABLET PO (08:41)
[2025-05-07] MEDS: METOPROLOL SUCCINATE XL 25 MG TABCR PO (08:41)
[2025-05-07] MEDS: Furosemide 40 MG TABLET PO (08:42)
[2025-05-07] MEDS: PANTOPRAZOLE 40 MG TABLET PO (08:42)
[2025-05-07] MEDS: AMIODARONE HCL 200 MG TABLET 100 MG PO (08:43)
[2025-05-07] MEDS: DAPAGLIFLOZIN PROPANEDIOL 5 MG TABLET 10 MG PO (09:51)
--- NOTE | 2025-05-07 10:03 | PC.NURSE ---
Patient DC orders in at 09:58 waiting on O2 delivery for home
--- NOTE | 2025-05-07 11:05 | CHAP ---
Patient was visited by the Spiritual Care Volunteer who prayed for them. (Volunteer was in the hospital from 09:30-11:05)
--- NOTE | 2025-05-07 11:48 | PD.RESDS ---
Planned Discharge Date 05/07/25 DS: Providers Provider Date of admission: 05/04/25 21:43 Primary care physician: Nancy Obando NP Admitting Provider: Kenneth Baig MD Attending Provider on Admission: Kenneth Baig MD Consults: 05/04/25 18:37 PT [Referral Physical Therapy] Routine Comment: Physician Instructions: 05/05/25 17:46 Consult to Cardiology Routine Comment: Consulting Provider: Veronica Pitts Attending Provider on DC: Gabriela Zavala MD Discharging Provider: Gabriela Zavala MD DS: Diagnosis Problem List Completed Was Problem List Reviewed/Reconciled?: Yes Hospital Course Hospital Course Hospital course: 05/07/2025 The patient was seen and examined at the bedside. There were no acute events overnight. Discharge was delayed yesterday due to unavailability of oxygen during patient transport. Social work is actively addressing this, and discharge is anticipated to occur today. For additional details, please refer to the discharge summary below. 79-year-old female with past medical history of longstanding ischemic cardiomyopathy, HFrEF 30% status post ICD implantation, history of primary hypertension, DM type II, hyperlipidemia, COPD on 2 L nasal cannula at home was admitted for acute on chronic hypoxic respiratory failure secondary due to COPD exacerbation in the setting of community-acquired pneumonia. Patient started on IV steroids, antibiotics treatment IV initiated, patient received scheduled as well as as needed breathing treatment. Chronic conditions were managed as needed. Patient condition during hospital stay significantly improved, patient was back to her baseline, saturating 95% on 2 L nasal cannula, labs were stable. Cardiology was on the case regarding his chronic heart failure, and medication management. Today upon my evaluation patient was hemodynamically stable, denied any shortness of breath, cough, chest pain, or any other symptoms. Patient will be discharged home with a rescue DuoNeb inhaler as needed, continue antibiotics for 4 more days to complete pneumonia course treatment, continue the rest of the home medication as prescribed, follow-up outpatient with PCP and Dr. Pitts in 1 to 2 weeks after discharge. All questions and concerns were addressed. Patient given verbalized understanding. #Acute on chronic hypoxic respiratory failure?resolved #COPD exacerbation?resolved #Community-acquired pneumonia #History of A-fib #HFrEF EF of 25%, s/p ICD #[id number] DM type II #History of dementia #History of depression #History of OA with chronic pain #Anxiety Patient care was discussed with attending physician Dr. Safia Zavala MD PGY-2 I have carefully reviewed this document. Due to imperfections in the voice software, there could be grammatical errors including phonetic/typographic errors. This in no way compromises the medical care the patient is receiving Time Spent with Patient Time attestation: Total time spent providing and/or coordinating discharge services: Time spent: Greater than 30 minutes Home Health Home Health Referral Orders: 05/06/25 09:47 Home Health Referral Routine Reason For Exam: Physical therapy Home-Bound The patient must either because of illness or injury, need the aid of supportive devices such as crutches, canes, wheelchairs, and walkers; the use of special transportation; or the assistance of another person in order to leave their place of residence; OR have a condition such that leaving his or her home is medically contraindicated. In addition, the patient also meets the following criteria: patient is normally unable to leave the home and leaving home requires considerable taxing effort. Addendum to Home Health Certification Practitioner's Certification: I certify that the patient has been under my care in the hospital and the care of attending physician (see below). We had a smef-aj-wosa encounter on (see date below). My clinical findings indicate that the patient is home bound per the above criteria and the Home Health Services noted in these orders are medically necessary. The primary reason for the xyrv-bo-tucj encounter is related to the fact that the patient requires home health services. Date Certifying Fjos-zo-Ckuq Physician Encounter: 05/04/25 Physician's Name who will Assume Oversight for HH Services: Daphne Velasquez WASH RACK OPERATOR - Community Resources: No PT to Evaluate: Yes PT to evaluate and provide a treatmnet plan to increase patient's mobility and strength. Wound Care: No IV Therapy: No RN Safety Evaluation: Yes RN to evaluate and create a plan of care that will produce positive outcomes. Palliative Treatment: No Palliative treatment and evaluate the need for hospice. Home Health Aide - Personal Care: Yes Home Health Aide to assist with any ADL's. Exam Vital Signs Temp Pulse Resp BP Pulse Ox O2 Del Method O2 Flow Rate 97.3 F 75 18 105/74 98 Nasal Cannula 2 05/07/25 08:00 05/07/25 10:09 05/07/25 10:09 05/07/25 08:43 05/07/25 10:09 05/07/25 08:00 05/07/25 10:09 FiO2 30 05/06/25 20:00 Narrative Exam GENERAL: no acute distress, AAO x3, frail female HEENT: Head AT/ NC. Mucous membranes moist. PERRL. NECK: Supple, no lymphadenopathy, no carotid bruits. CARDIOVASCULAR: RRR. No pitting edema of bilateral LEs. ICD on left side noted RESPIRATORY: No wheezing, rhonchi, crackles. GASTROINTESTINAL: Abdomen soft, non tender no palpable masses. Bowel sounds present in all 4 quadrants. MUSCULOSKELETAL:? No cyanosis or edema, no visible joint swelling. NEUROLOGICAL: CN II-XII grossly intact. No focal deficits. Sensation intact, symmetric. PSYCHIATRIC: Awake and alert, not agitated, normal mood and affect. INTEGUMENTARY: No obvious rashes, no jaundice, normal turgor. Discharge Plan Plan Patient Disposition: HOME (Self Care) Patient condition on transfer: Stable Prescriptions/Referrals Prescriptions/Med Rec: New cefuroxime axetil 500 mg tablet 500 mg PO Q12H 4 Days Qty: 8 0RF doxycycline monohydrate 100 mg tablet 100 mg PO BID 4 Days Qty: 8 0RF ipratropium-albuterol 0.5 mg-3 mg(2.5 mg base)/3 mL solution for nebulization 3 ml inhalation Q4H PRN (Reason: shortness of breath or wheezing) Qty: 90 0RF hydrocodone-acetaminophen 7.5-325 mg tablet 1 tab PO BID MDD 2 tab PRN (Reason: pain) Qty: 10 0RF Continued hydrocodone-acetaminophen 7.5-325 mg tablet 1 tab PO BID MDD 15 mg PRN (Reason: pain) Qty: 60 0RF metformin 500 mg tablet 500 mg PO BID Patient Comments: TAKE 1 TABLET BY MOUTH TWICE DAILY donepezil 10 mg Tablet 10 mg PO QPM metoprolol succinate 25 mg tablet extended release 24 hr 25 mg PO QDAY Patient Comments: TAKE ONE TABLET BY MOUTH WITH FOOD EVERY DAY FOR BLOOD PRESSURE spironolactone 25 mg Tablet 25 mg PO QDAY aspirin 81 mg Tablet,Chewable 81 mg PO QDAY Qty: 30 5RF ticagrelor [Brilinta] 90 mg Tablet 90 mg PO BID Qty: 60 5RF furosemide 40 mg tablet 40 mg PO DAILY amiodarone 100 mg tablet 100 mg PO DAILY dapagliflozin propanediol 10 mg tablet 10 mg PO QDAY Patient Comments: TAKE ONE TABLET BY MOUTH EVERY MORNING FOR DIABETES magnesium oxide 400 mg (241.3 mg magnesium) tablet 400 mg PO QDAY 30 Days Qty: 30 2RF Discontinued nitrofurantoin 100 mg Capsule 100 mg PO BID Rx Instructions: must administer with a meal/food ciprofloxacin HCl 500 mg Tablet 500 mg PO BID amiodarone 200 mg tablet 200 mg PO BID 30 Days Qty: 60 2RF doxycycline monohydrate 100 mg capsule 100 mg PO BID Qty: 14 0RF Referrals: Nancy Obando APPLICATION INTEGRATION ARCHITECT [Primary Care Provider] - Patient/Caregiver Discharge Instructions Discharge Activity: as per physical therapy Other Discharge Activity Instructions:: Take cefuroxime 500 mg twice daily for 4 more days Take doxycycline 100 mg twice daily for another 4 more days to complete antibiotic course You are prescribed rescue inhaler for shortness of breath and wheezing as needed, please read the instructions for using Continue the rest of medication Continue Farxiga and metformin to control blood sugar, You have amiodarone 2 different doses, please continue with amiodarone 100 mg once daily, please disregard all the medication that you are not actively taking Repeat CBC/CMP in 1 to 2 weeks after discharge Please follow-up with primary care physician in 1 to 2 weeks after discharge Follow-up with Dr. Pitts, adjust medication as needed Please return to ED anytime symptoms worsens. Education Materials: Chronic Lung Disease Avoiding ..., Chronic Lung Disease Tips for ... Print Language: Palauan Stand Alone Forms: [facility] Award Info., Patient Portal Info Letter Discharge Order Discharge Orders: Discharge (Routine); Ordered 05/06/25 Ordered By: Gabriela Zavala Quality Discharge Quality Measures VTE prophylaxis Attestestation Attestation I have examined the patient, reviewed labs and imaging findings, discussed the case with the resident(s), and reviewed entered orders. I agree with the plan of care as outlined in this note. Time Spent: [address] Safia MD
--- NOTE | 2025-05-07 12:05 | PC.SS ---
SS follow up note; [facility] will be delivering 02 tank at bedside within 3-4 hours.
--- NOTE | 2025-05-07 15:10 | PC.SS ---
SS follow up note; SS met with patient at bedside and informed her that 02 will be delivered between 5-8PM. Patient verbalized understanding.
--- NOTE | 2025-05-08 09:13 | PC.CC ---
Patient is opened to [facility]. HH referral sent on [facility]. Awaiting responses. Pending resume of care date.
--- NOTE | 2025-05-09 08:23 | PC.CC ---
Addendum entered by Rasheed Zhao RN 05/09/25 08:25: [facility] accepted the pt, [facility]ed [facility]. Resume of care date with [facility] is 05/10/25. Original Note: Resume of care date with [facility] is 05/10/25.
--- NOTE | 2025-05-10 12:14 | PC.SS ---
SS follow up note; SS contacted patient, however patient's career agent, Terrence answered, she reported that patient was currently getting a breathing treatment. SS inquired about her [facility] contacting patient and follow up how patient is doing after discharge, Terrence reported that [facility] will be out tomorrow to see patient and reported that patient has been doing fine since discharging back home.
== END 2025-05-07 17:54 | disposition home or self-care (01) | DRG 190 ==
LOC: SERX 18:34 → S2NX 21:52 → S3NX 05-06 22:04
PROVIDERS: Family Medicine; Nurse Practitioner Family; Student in an Organized Health Care Education/Training Program; Admitting Provider Student in an Organized Health Care Education/Training Program; Emergency Provider Emergency Medicine; PCP Nurse Practitioner Family; Visit Provider Student in an Organized Health Care Education/Training Program
DX: J44.1 Chronic obstructive pulmonary disease with (acute) exacerbation (principal); J18.9 Pneumonia, unspecified organism; J96.21 Acute and chronic respiratory failure with hypoxia; I50.22 Chronic systolic (congestive) heart failure; I48.20 Chronic atrial fibrillation, unspecified; F03.94 Unspecified dementia, unspecified severity, with anxiety; I42.0 Dilated cardiomyopathy; J44.0 Chronic obstructive pulmonary disease with (acute) lower respiratory infection; I11.0 Hypertensive heart disease with heart failure; E78.5 Hyperlipidemia, unspecified; I71.20 Thoracic aortic aneurysm, without rupture, unspecified; Z79.01 Long term (current) use of anticoagulants; M40.209 Unspecified kyphosis, site unspecified; Z86.16 Personal history of COVID-19; K59.00 Constipation, unspecified; E11.65 Type 2 diabetes mellitus with hyperglycemia; I25.10 Atherosclerotic heart disease of native coronary artery without angina pectoris; Z66 Do not resuscitate; Z99.81 Dependence on supplemental oxygen; I48.0 Paroxysmal atrial fibrillation; Z95.810 Presence of automatic (implantable) cardiac defibrillator; Z88.0 Allergy status to penicillin; I25.5 Ischemic cardiomyopathy; M25.511 Pain in right shoulder; M19.90 Unspecified osteoarthritis, unspecified site; F32.A Depression, unspecified; Z79.84 Long term (current) use of oral hypoglycemic drugs; Z88.2 Allergy status to sulfonamides; G89.29 Other chronic pain; Z79.4 Long term (current) use of insulin; Z79.899 Other long term (current) drug therapy; Z87.891 Personal history of nicotine dependence
CPT/HCPCS: 36415; 71101; 71275; 80053; 83735; 83880; 84484; 85025; 85379; 85610; 85730; 87040; 87081; 87811; 93005; 93225; 94640; 94660; 96365; 96367; 96372; 96375; 97162; 99291; A4649; A9270; J0696; J1644; J1815; J2919; J3490; J7030; J7050; J8499; Q9967

== ENCOUNTER 2025-05-13 13:37 | Outpatient (AMB) | payer OTHER, MEDICAID, SELFPAY ==
--- NOTE | 2025-05-13 13:57 | ACNOTE_ITS ---
Vital Signs 05/13/25 13:58 Weight Measurement Method Wheelchair BP 102/67 Blood Pressure Source Automatic Cuff Blood Pressure Location Left Upper Arm Position Sitting Respiration 17 Pulse 92 Pulse Source Monitor Temp 97.6 F Temp Source Temporal Artery Scan Pulse Oximetry (%) 93 L Oxygen Delivery Method Room Air Allergies/Meds Allergies & Medications Allergies Penicillins Allergy (Severe, Verified 05/13/25 14:00) UNKNOWN Sulfa (Sulfonamide Antibiotics) Allergy (Severe, Verified 05/13/25 14:00) Swelling Medication Reconciliation donepezil 10 mg tablet 10 mg PO QPM 09/05/21 [History Confirmed 05/13/25] metformin 500 mg tablet 500 mg PO BID 09/05/21 [History Confirmed 05/13/25] metoprolol succinate 25 mg tablet,extended release 24 hr 25 mg PO QDAY 02/27/24 [History Confirmed 05/13/25] magnesium oxide 400 mg (241.3 mg magnesium) tablet 400 mg PO QDAY 30 days #30 tabs 04/30/24 [Rx Confirmed 05/13/25] aspirin 81 mg chewable tablet 81 mg PO QDAY #30 tabs 10/26/24 [Rx Confirmed 05/13/25] spironolactone 25 mg tablet 25 mg PO QDAY 10/26/24 [History Confirmed 05/13/25] ticagrelor 90 mg tablet (Brilinta) 90 mg PO BID #60 tabs 10/26/24 [Rx Confirmed 05/13/25] amiodarone 100 mg tablet 100 mg PO DAILY Atrial fibrilation 05/04/25 [History Confirmed 05/13/25] furosemide 40 mg tablet 40 mg PO DAILY Heart failure 05/04/25 [History Confirmed 05/13/25] dapagliflozin propanediol 10 mg tablet 10 mg PO QDAY 05/05/25 [History Confirmed 05/13/25] ipratropium 0.5 mg-albuterol 3 mg (2.5 mg base)/3 mL nebulization soln 3 ml inhalation Q4H PRN shortness of breath or wheezing #90 mL 05/06/25 [Rx Confirmed 05/13/25] hydrocodone 7.5 mg-acetaminophen 325 mg tablet 1 tab PO BID PRN pain #20 tabs 05/11/25 [Rx Confirmed 05/13/25] hydrocodone 7.5 mg-acetaminophen 325 mg tablet 1 tab PO BID PRN pain #60 tabs 05/13/25 [Rx] MA Intake Visit Data Collection New Patient or Established: Established Patient (seen at [facility] within 3 years) Seen by Clinical Staff ONLY (RN/MODESTO): No Pain Present Currently: Yes Pain scale:: 9 Pain Scale Used: MarquezLoAddison/Numerical Crating And Moving Estimator Required: No PCP or OBGYN visit in last 3 months: Yes Date of Last PCP or OBGYN visit: 05/07/25 Hx Now: No Do You Feel Safe at Home: Yes Authorities Contacted: N/A Smoking Status Smoking Status: Former smoker Immunization / Flu Flu Vaccine in the Last 12 Months: Yes Flu Vaccine Exclusion Criteria: Already Received Past Medical History Past Medical History NEUROLOGIC: Positive Dementia; Negative Neurological Disorders CARDIAC: Positive Cardiac Disorders, Cardiac Arrhythmia, Atrial Fibrillation, Heart Murmur, Coronary Artery Disease, Peripheral Vascular Disease, Hypercholesterolemia, Congestive Heart Failure, Cardiomyopathy, Hypertension and Hypotension RESPIRATORY: Positive Chronic Obstructive Pulmonary Disease (COPD), Asthma, Smoking, Smoking Cessation Counseling and Tobacco Use GASTROINTESTINAL: Negative Gastrointestinal Disorders GENITOURINARY: Negative Genitourinary Disorders or Renal Disease ENDOCRINE: Positive Endocrine Disorders and Diabetes Mellitus Type 2; Negative Diabetes Mellitus Type 1 HEMATOLOGIC: Negative Blood Disorders or Sickle Cell Disease Surgical History SURGICAL: Positive Pacemaker, Ear Surgery, Tonsillectomy and Hysterectomy; Negative Cardiac Surgery, Endocrine Surgery, Abdominal Surgery, Nephrectomy or Neurologic Surgery Social History SMOKING STATUS: Smoking status: Former smoker PACK YEARS: Pack-Years: 64 SECOND HAND EXPOSURE: second hand exposure: No ALCOHOL: Alcohol Intake: Former ALCOHOL FREQUENCY: Alcohol Intake Frequency: holidays/special occasions only HOUSING: Housing: Apartment LIVES WITH: Lives With: Alone Patient Portal Questionaires PHQ-9 PHQ-2 Over the last 2 weeks, how often have you been bothered by any of the following problems? 1. Little interest or pleasure in doing things: not at all 2. Feeling down, depressed, or hopeless: not at all Total score: 0 PHQ-9 3. Trouble falling or staying asleep, or sleeping too much: Not at all 4. Feeling tired or having little energy: Not at all 5. Poor appetite or overeating: Not at all 6. Feeling bad about yourself - or that you are a failure or have let yourself or your family down: Not at all 7. Trouble concentrating on things, such as reading the newspaper or watching television: Not at all 8. Moving or speaking so slowly that other people could have noticed? - Or the opposite - being so fidgety or restless that you have been moving around a lot more than usual: not at all 9. Thoughts that you would be better off or of hurting yourself in some way: Not at all Total score: 0 If you checked off any problems, how difficult have these problems made it for you to do your work, take care of things at home, or get along with other people?: not difficult at all Source: Developed by Drs. Alex Veronica, Brittney Fonseca, Antwon Castaneda and colleagues, with an educational mechelle from [employer]. Depression screen completed yes Social History Living Situation History Marital Status: Unknown Housing: Apartment Housing Other:: pt lives alone caregiver visits 5x a week Tobacco History Smoking Status: Former smoker Packs per Day: 2 Pack-Years: 64 Second Hand Smoke Exposure: No Alcohol History Alcohol Intake: Former Alcohol Intake Frequency: holidays/special occasions only Substance Use History Substance Use: meth Domestic Abuse History Do You Feel Safe at Home: Yes Review of Systems Report any current symptoms Only answer those that you have currently: Past Medical History Past Medical History Have you ever been diagnosed with any of the following: Neurological Problems Dementia: Yes Cardiology Problems Cardiac Arrhythmia: Yes Atrial Fibrillation: Yes Heart Murmur: Yes Coronary Artery Disease: Yes Peripheral Vascular Disease: Yes Hypercholesterolemia: Yes Congestive Heart Failure: Yes Cardiomyopathy: Yes Hypertension: Yes Hypotension: Yes Respiratory Problems Chronic Obstructive Pulmonary Disease (COPD): Yes Asthma: Yes Smoking: Yes Smoking Cessation Counseling: Yes Tobacco Use: Yes Genital/Urinary Problems Renal Disease: No Endocrine Problems Diabetes Mellitus Type 1: No Diabetes Mellitus Type 2: Yes Blood Problems Sickle Cell Disease: No Surgical History Hysterectomy: Yes Pacemaker: Yes History of Present Illness HPI Narrative Ms. Cordova is a 77-year-old demale with a medical history of osteoarthritis, chronic T4 compression fracture with kyphosis, left fibular fracture (March 2023), primary hypertension, diabetes mellitus type II, hyperlipidemia, 4cm thoracic aortic aneurysm, dilated cardiomyopathy HFrEF 25% s/p defibrillator followed by cardiology Dr. Pitts, & chronic atrial fibrillation on Eliquis, COPD/asthma on home O2 PRN 2/2 chronic tobacco use (>30 yrs), NIDDM2, dementia, chronic tremor, & anxiety/depression. 04/08: Pt is in office for follow up visit for pain management. Since pt's last visit in office in october 2024. Pt has had multiple hospitalizations. Pt was initially hospitalized at [facility] earlier this year due to recent fall causing hip fracture and underwent surgery. Pt also had ND and states her defibrillator was replaced during her hospitalization at [facility]. Pt was also in rehab post op for weeks. and was recently sent home less than a week ago. Pt has been experiencing a lot joint pain and is requesting a refill of her home [place] 7.5- 325 mg for chronic back and shoulder pain secondary to osteoarthritis and chronic compression fracture. Pt is also requesting intra-articular kenalog injection in the right shoulder. she has no other complaints or concerns. 05/13: Pt is in office for follow up visit after hospitalization. pt was hospitalized from 05/04-05/07 for COPD exacerbation secondary to community acquired pneumonia. During hospitalization, pt received breathing treatments, steroids and IV antibiotics. Currently using 2L oxygen all day. Pt was discharged on antibiotics which she is continuing currently. Pt is out of her norco refill, and in office for refill medication. Pt also want referral for IR hip steroid injection which usually gets once or twice a year. she has no other complaints or concerns. Review of Systems Review of Systems Systems Reviewed: All systems reviewed, normal except as documented Objective/Exam Narrative Physical exam: GENERAL: A&Ox3 . Awake, Not in acute distress NEURO: no focal neurological deficits HEENT: Atraumatic, Normocephalic. mucous membranes moist. Eyes open, symmetrical, & clear HEART: Normal Heart Sounds LUNGS: Clear to auscultation with no wheezing or crackles. ABDOMEN: soft, non-distended, non-tender, bowel sounds heard, no guarding or rebound tenderness SKIN: No Rash or ecchymoses EXTREMITIES: No edema, tenderness, able to move all 4 extremities, pedal pulses palpated Assessment & Plan Diagnosis / Problem List (1) Osteoarthritis involving multiple joints on both sides of body: Status: Chronic Assessment & Plan: pt has long time history of severe osteoarthritis in multiple joints and intermittently and have received steroid injections in articular joints including should and hip -Pt received kenalog and lidocaine injection in the right shoulder on 04/08 Plan: -refilled norco 7.5-325 -checked CURES -pt does not display signs of overuse or abuse (2) Osteoarthritis of left hip: Status: Acute Assessment & Plan: -Pt is currently complaining of severe pain in the left hip for which she has previous received steroid injection Plan: -refer to IR guided steroid injection in the left hip, request sent and IR to contact patient Orders: Orders IR hip injection 2 Weeks M15.9 - Polyosteoarthritis, unspecified, M16.12 - Unilateral primary osteoarthritis, left hip Advanced Care Planning Advance care planning discussed with:: patient Office Procedures [facility] Level of Care Nursing/Assessment Patient Status: Established Patient Nursing Assessment/Reassessment: Medication Reconciliation, Update PMH in EMR and Vital Signs Coordination of Care: Complex Care and Chronic Disease 1-5, Consent,records obtained, informed consent, Education Simp Pt/Fam and Staff clarify orders Established Patient Charge Established Patient Point Assignment: 85 Established Patient Point Charge: EP Level 3 (80-115) TB Screening LTBI Screening: Has patient traveled, was born, or resided for at least 1 month, or frequent border crossing into a country with an elevated TB rate: No Immunosuppression, current or planned (HIV, organ transplant, treated with biologic agents, steroids, or other immunosuppression medication): No Close contact to someone with infectious TB disease during lifetime: No Homelessness or incarceration, current or past: No TB testing indicated at this time (at least 1 yes above): No
[2025-05-13 13:58] VITALS: BP 102/67; PULSE 92; RESP 17; TEMP 36.4; O2SAT 93
== END 2025-05-13 14:12 | disposition home or self-care (01) ==
LOC: HODAHC 13:37
PROVIDERS: Supervising Provider Internal Medicine
DX: M15.9 Polyosteoarthritis, unspecified (principal)
CPT/HCPCS: 99213; G0463

== ENCOUNTER 2025-06-14 13:03 | Outpatient (AMB) | payer OTHER, MEDICAID, SELFPAY ==
--- NOTE | 2025-06-14 13:14 | ACNOTE_ITS ---
Vital Signs 06/14/25 13:20 Weight 59.874 kg Weight Measurement Method Standing Scale BP 139/77 H Blood Pressure Source Automatic Cuff Blood Pressure Location Right Upper Arm Position Sitting Respiration 18 Pulse 81 Pulse Source Monitor Temp 98.3 F Temp Source Temporal Artery Scan Pulse Oximetry (%) 88 L Oxygen Delivery Method Room Air Allergies/Meds Allergies & Medications Allergies Penicillins Allergy (Severe, Verified 06/14/25 13:23) UNKNOWN Sulfa (Sulfonamide Antibiotics) Allergy (Severe, Verified 06/14/25 13:23) Swelling MA Intake Visit Data Collection New Patient or Established: Established Patient (seen at [facility] within 3 years) Seen by Clinical Staff ONLY (RN/MA): No Pain Present Currently: No Pain scale:: 0 Pain Scale Used: Marquez-Addison/Numerical Game Trapper Required: No PCP or OBGYN visit in last 3 months: No Hx Now: No Do You Feel Safe at Home: Yes Authorities Contacted: N/A Smoking Status Smoking Status: Former smoker Immunization / Flu Flu Vaccine in the Last 12 Months: No Flu Vaccine Exclusion Criteria: No Exclusion Criteria Past Medical History Past Medical History NEUROLOGIC: Positive Dementia; Negative Neurological Disorders CARDIAC: Positive Cardiac Disorders, Cardiac Arrhythmia, Atrial Fibrillation, Heart Murmur, Coronary Artery Disease, Peripheral Vascular Disease, Hypercholesterolemia, Congestive Heart Failure, Cardiomyopathy, Hypertension and Hypotension RESPIRATORY: Positive Chronic Obstructive Pulmonary Disease (COPD), Asthma, Smoking, Smoking Cessation Counseling and Tobacco Use GASTROINTESTINAL: Negative Gastrointestinal Disorders GENITOURINARY: Negative Genitourinary Disorders or Renal Disease ENDOCRINE: Positive Endocrine Disorders and Diabetes Mellitus Type 2; Negative Diabetes Mellitus Type 1 HEMATOLOGIC: Negative Blood Disorders or Sickle Cell Disease Surgical History SURGICAL: Positive Pacemaker, Ear Surgery, Tonsillectomy and Hysterectomy; Negative Cardiac Surgery, Endocrine Surgery, Abdominal Surgery, Nephrectomy or Neurologic Surgery Social History SMOKING STATUS: Smoking status: Former smoker PACK YEARS: Pack-Years: 65 SECOND HAND EXPOSURE: second hand exposure: No ALCOHOL: Alcohol Intake: Former ALCOHOL FREQUENCY: Alcohol Intake Frequency: holidays/special occasions only HOUSING: Housing: Apartment LIVES WITH: Lives With: Alone Patient Portal Questionaires PHQ-9 PHQ-2 Over the last 2 weeks, how often have you been bothered by any of the following problems? 1. Little interest or pleasure in doing things: not at all PHQ-9 8. Moving or speaking so slowly that other people could have noticed? - Or the opposite - being so fidgety or restless that you have been moving around a lot more than usual: not at all Source: Developed by Drs. Alex Veronica, Brittney Fonseca, Antwon Castaneda and colleagues, with an educational mechelle from [employer]. Social History Living Situation History Housing: Apartment Housing Other:: pt lives alone caregiver visits 5x a week Tobacco History Smoking Status: Former smoker Packs per Day: 2 Pack-Years: 65 Second Hand Smoke Exposure: No Alcohol History Alcohol Intake: Former Alcohol Intake Frequency: holidays/special occasions only Substance Use History Substance Use: meth Domestic Abuse History Do You Feel Safe at Home: Yes Review of Systems Report any current symptoms Only answer those that you have currently: Past Medical History Past Medical History Have you ever been diagnosed with any of the following: Neurological Problems Dementia: Yes Cardiology Problems Cardiac Arrhythmia: Yes Atrial Fibrillation: Yes Heart Murmur: Yes Coronary Artery Disease: Yes Peripheral Vascular Disease: Yes Hypercholesterolemia: Yes Congestive Heart Failure: Yes Cardiomyopathy: Yes Hypertension: Yes Hypotension: Yes Respiratory Problems Chronic Obstructive Pulmonary Disease (COPD): Yes Asthma: Yes Smoking: Yes Smoking Cessation Counseling: Yes Tobacco Use: Yes Genital/Urinary Problems Renal Disease: No Endocrine Problems Diabetes Mellitus Type 1: No Diabetes Mellitus Type 2: Yes Blood Problems Sickle Cell Disease: No Surgical History Hysterectomy: Yes Pacemaker: Yes History of Present Illness HPI Narrative Ms. Cordova is a 77-year-old demale with a medical history of osteoarthritis, chronic T4 compression fracture with kyphosis, left fibular fracture (March 2023), primary hypertension, diabetes mellitus type II, hyperlipidemia, 4cm thoracic aortic aneurysm, dilated cardiomyopathy HFrEF 25% s/p defibrillator followed by cardiology Dr. Pitts, & chronic atrial fibrillation on Eliquis, COPD/asthma on home O2 PRN 2/2 chronic tobacco use (>30 yrs), NIDDM2, dementia, chronic tremor, & anxiety/depression. 04/08: Pt is in office for follow up visit for pain management. Since pt's last visit in office in october 2024. Pt has had multiple hospitalizations. Pt was initially hospitalized at [facility] earlier this year due to recent fall causing hip fracture and underwent surgery. Pt also had MS and states her defibrillator was replaced during her hospitalization at [facility]. Pt was also in rehab post op for weeks. and was recently sent home less than a week ago. Pt has been exper iencing a lot joint pain and is requesting a refill of her home [place] 7.5-325 mg for chronic back and shoulder pain secondary to osteoarthritis and chronic compression fracture. Pt is also requesting intra-articular kenalog injection in the right shoulder. she has no other complaints or concerns. 05/13: Pt is in office for follow up visit after hospitalization. pt was hospitalized from 05/04-05/07 for COPD exacerbation secondary to community acquired pneumonia. During hospitalization, pt received breathing treatments, steroids and IV antibiotics. Currently using 2L oxygen all day. Pt was dis charged on antibiotics which she is continuing currently. Pt is out of her norco refill, and in office for refill medication. Pt also want referral for IR hip steroid injection which usually gets once or twice a year. she has no other complaints or concerns. 06/14/2025: The patient presented for F/U visit regarding her hip and shoulder pain. She reported her shoulder pain improving after steroid shot but wasn't able to get IR guided hip steroid shot which was scheduled during last visit. She requested [place] 7.5-325 mg twice daily as needed for pain refill, and was refilled. She was given the phone number for [facility] IR, and was recommended to call the number and get the appointment for the steroid shot. She admitted occasional mild SOB, that is her baseline and occasionally require oxygen 2 L via NC. She denied any chest pain, fever or chills, nausea or vomiting, orthopnea or PND. Review of Systems Review of Systems Systems Reviewed: All systems reviewed, normal except as documented Objective/Exam Narrative Physical exam: GENERAL: A&Ox3 . Awake, Not in acute distress NEURO: no focal neurological deficits HEENT: Atraumatic, Normocephalic. mucous membranes moist. Eyes open, symmetrical, & clear HEART: Normal Heart Sounds LUNGS: Clear to auscultation with no wheezing or crackles. ABDOMEN: soft, non-distended, non-tender, bowel sounds heard, no guarding or rebound tenderness SKIN: No Rash or ecchymoses EXTREMITIES: No edema, tenderness, able to move all 4 extremities, pedal pulses palpated Assessment & Plan Diagnosis / Problem List (1) Osteoarthritis involving multiple joints on both sides of body: Status: Chronic Assessment & Plan: pt has long time history of severe osteoarthritis in multiple joints and intermittently and have received steroid injections in articular joints including should and hip -Pt has received kenalog and lidocaine injection in the right shoulder on 04/08, and reported improvement in her pain over UE. Plan: -refilled norco 7.5-325 -checked CURES on previous visit -pt does not display signs of overuse or abuse (2) Osteoarthritis of left hip: Status: Acute Assessment & Plan: -Pt is currently complaining of severe pain in the left hip for which she has previous received steroid injection Plan: -Was referred to IR guided steroid injection in the left hip, request was sent and IR was supposed to contact patient, but she reported not being contacted. She was given IR number to call and schedule an appointment. Advanced Care Planning Advance care planning discussed with:: patient Office Procedures [facility] Level of Care Nursing/Assessment Patient Status: Established Patient Nursing Assessment/Reassessment: Medication Reconciliation, Update PMH in EMR and Vital Signs Coordination of Care: Complex Care and Chronic Disease 1-5, Consent,records obtained, informed consent, Education Simp Pt/Fam and Staff clarify orders Established Patient Charge Established Patient Point Assignment: 85 Established Patient Point Charge: EP Level 3 (80-115)
[2025-06-14 13:20] VITALS: BP 139/77; PULSE 81; RESP 18; TEMP 36.8; O2SAT 88
== END 2025-06-14 14:06 | disposition home or self-care (01) ==
LOC: HODAHC 13:03
PROVIDERS: Supervising Provider Internal Medicine; Visit Provider Student in an Organized Health Care Education/Training Program
DX: M15.9 Polyosteoarthritis, unspecified (principal); I10 Essential (primary) hypertension; E11.9 Type 2 diabetes mellitus without complications; E78.5 Hyperlipidemia, unspecified; Z76.0 Encounter for issue of repeat prescription; R06.02 Shortness of breath
CPT/HCPCS: 99213; G0463

== ENCOUNTER 2025-07-06 15:59 | Inpatient (IN) | payer OTHER, MEDICAID, MEDICARE, SELFPAY ==
[2025-07-06] VITALS (16 sets, daily range): BP systolic 123–147; BP diastolic 75–95; PULSE 60–80; RESP 14–34; TEMP 36.2–37.4; O2SAT 90–98; BMI 22.3
--- NOTE | 2025-07-06 16:44 | EKG_ITS ---
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: : [id number] Requested By: Devi Covington Order Number: [id number] Reading MD: Devi Covington Measurements Intervals [place] Rate: 62 P: 104 MI: 188 QRS: -63 QRSD: 190 T: 108 QT: 523 QTc: 533 Interpretive Statements ELECTRONIC ATRIAL PACEMAKER ELECTRONIC VENTRICULAR PACEMAKER ABNORMAL RHYTHM ECG Compared to ECG 05/04/2025 16:45:45 Atrial fibrillation no longer present Ventricular premature complex(es) no longer present Aberrant conduction of supraventricular beat(s) no longer present Left-axis deviation no longer present Left bundle-branch block no longer present /store/S0/[id number].pdf
--- NOTE | 2025-07-06 16:52 | XR_ITS ---
Examination: AP chest single view Technique one AP portable semiupright chest single view Date and time: July 06, 2025, 1724 hours Comparison May 04, 2025 INDICATIONS: Shortness of breath chest pain today. FINDINGS: The film is rotated RPO Mild enlargement cardiac contour Ectatic and enlarged thoracic aorta Moderate vascular congestion with septal edema, subtle at the lung bases Cardiac leads satisfactory position Prominent osteopenia IMPRESSION: Early heart failure
[2025-07-06] MEDS: IPRATROPIUM RT 0.5 MG/ 2.5 ML NEBU INH (17:08)
[2025-07-06] MEDS: ALBUTEROL RT 2.5 MG/3 ML NEBU 5 MG INH (17:08)
[2025-07-06 17:16] LABS: Allen Test Performed/OK; Base Excess -8 (-3-3); HCO3 16 mEq/L (20-26); Inspired O2, VO2 Liters 2 L/min; O2 Saturation 98 % (91-98); PCO2 28 mmHg (32.0-48.0); PO2 94 mmHg (83-108); Puncture Site Right Radial; pH, Arterial 7.37 (7.35-7.45)
--- NOTE | 2025-07-06 17:48 | EDNOTE_ITS ---
ED SOB =RME/HPI General Chief Complaint: Shortness of Breath/Dyspnea Stated Complaint: SOB Time Seen by Provider: 07/06/25 16:44 Arrival date/time: 07/06/25 15:59 RME / HPI RME / HPI Narrative: 79 year old female with history of HFrEF 20-25% (04/2024), s/p pacemaker, hypertension, diabetes, hyperlipidemia, COPD on 2L home oxygen presents to the ED BIBA from home with complaint of shortness of breath beginning 1 week ago that is progressively worsening. Described feeling she is not able to take deep breath that is aggravated with laying flat. States in the last few days is requiring 2-3 pillow at night to sleep. Denies any know modifying factors. Denies fevers, chills, sweats, chest pain, cough, sore throat, headache, abdominal pain, n/v/d, or urinary symptoms. Related Data Home Medications ?Medication ?Instructions ?Recorded ?Confirmed donepezil 10 mg tablet 10 mg PO QPM 09/05/21 metoprolol succinate 25 mg 25 mg PO QDAY 02/27/2406/25 tablet,extended release 24 hr spironolactone 25 mg tablet 25 mg PO QDAY 10/26/2411/18 amiodarone 100 mg tablet 100 mg PO DAILY Atrial fibri lation 05/04/25 07/06/25 furosemide 40 mg tablet 40 mg PO DAILY Heart failure 05/04/25 07/06/25 dapagliflozin propanediol 10 mg 10 mg PO QDAY 05/05/25 07/06/25 tablet Previous Rx's ?Medication ?Instructions ?Recorded magnesium oxide 400 mg (241.3 mg 400 mg PO QDAY 30 day s #30 tabs 04/30/24 magnesium) tablet aspirin 81 mg chewable tablet 81 mg PO QDAY #30 tabs 1 12/27/23 ticagrelor 90 mg tablet (Brilinta) 90 mg PO BID #60 ta bs 10/26/24 ipratropium 0.5 mg-albuterol 3 mg 3 ml inhalation Q4H PRN shortness 05/06/25 (2.5 mg base)/3 mL nebulization of breath or wheezing #90 mL soln hydrocodone 7.5 mg-acetaminophen 1 tab PO BID PRN pain #20 tabs 05/11/25 325 mg tablet hydrocodone 7.5 mg-acetaminophen 1 tab PO BID PRN pain #60 tabs 06/14/25 325 mg tablet Allergies Allergy/AdvReac Type Severity Reaction Status Date / Time Penicillins Allergy Severe UNKNOWN Verified 06/14/25 13:23 Sulfa (Sulfonamide Allergy Severe Swelling Verified 06/14/25 13:23 Antibiotics) Review of Systems Review of Systems Systems Reviewed: All systems reviewed, normal except as documented Past Medical History Past Medical History NEUROLOGIC: Positive Dementia CARDIAC: Positive Cardiac Disorders, Cardiac Arrhythmia, Atrial Fibrillation, Heart Murmur, Coronary Artery Disease, Peripheral Vascular Disease, Hypercholesterolemia, Congestive Heart Failure, Cardiomyopathy, Hypertension and Hypotension RESPIRATORY: Positive Chronic Obstructive Pulmonary Disease (COPD), Asthma, Smoking, Smoking Cessation Counseling and Tobacco Use ENDOCRINE: Positive Endocrine Disorders and Diabetes Mellitus Type 2 Surgical History SURGICAL: Positive Pacemaker, Ear Surgery, Tonsillectomy and Hysterectomy Social History SMOKING STATUS: Former smoker SECOND HAND EXPOSURE: No SUBSTANCE USE: does not use ED Exam Narrative Physical exam: Constitutional: Awake, alert, nontoxic HEENT: NC, AT, EOMI Neck: Supple CV: RRR, no m/r/g Lungs: Bibasilar rales, no w/r Abd: Soft, NT, NT, no HSM noted to palpation Extremities: No deformities, decreased perfusion to bilateral feet Neuro: AAOx3, CN 2-12 GIBL, no acute neuro deficit noted. Skin: Warm, dry, intact Course Course Course Narrative: I spoke with team hospitalist team A and is pending admission. Quality Measures none Orders Category Date Time Status Patient Condition Routine Admission 07/06/25 20:25 Ordered Bedside COVID-19 Antigen Test NOW Care 07/06/25 18:00 Active Bedside Influenza A&B Antigen Test NOW Care 07/06/25 18:01 Completed COVID-19 Screening Questionnaire NOW Care 07/06/25 18:00 Active Bread Oven Operator NOW Care 07/06/25 16:52 Active Continuous Pulse Oximetry NOW Care 07/06/25 16:52 Completed Decision to Admit X1 Care 07/06/25 18:00 Completed EKG (ED ONLY) *Do not use* NOW Care 07/06/25 16:44 Completed Pat [Urinary Catheter] QS Care 07/06/25 20:27 Active Head of Bed Elevation NOW Care 07/06/25 20:27 Active Insert IV STAT Care 07/06/25 16:52 Active Miscellaneous Nursing Order NOW Care 07/06/25 20:27 Active Notify provider NEEDED Care 07/06/25 20:25 Active EKG (ED Only) Stat Exams 07/06/25 16:44 Draft US venous doppler LE RT Stat Exams 07/06/25 20:27 Completed XR chest 1V portable Stat Exams 07/06/25 16:52 Completed Arterial Blood Gas Stat Lab 07/06/25 17:05 Completed B-Type Natriuretic Peptide Stat Lab 07/06/25 17:39 Completed Blood Culture (Lab) Stat Lab 07/06/25 17:55 Received CBC Stat Lab 07/06/25 17:39 Completed Comprehensive Metabolic Panel Stat Lab 07/06/25 17:39 Completed Magnesium Stat Lab 07/06/25 17:39 Completed Partial Thromboplastin Time Stat Lab 07/06/25 17:39 Completed Procalcitonin Stat Lab 07/06/25 17:39 Completed Prothrombin Time with INR Stat Lab 07/06/25 17:39 Completed Troponin I Stat Lab 07/06/25 17:39 Completed Urinalysis Stat Lab 07/06/25 19:53 Completed ALBUTEROL RT 3ml [Proventil Rt 3ml] Med 07/06/25 16:54 Discontinued 5 mg INH X1 ONE Albuterol/Ipratr Rt Renay [Duoneb Rt Renay] Med 07/06/25 19:40 Discontinued 3 ml .ROUTE .STK-MED ONE Azithromycin Inj [Zithromax Inj] 250 mg Med 07/07/25 21:00 Active Sterile Water 2.5 ml Sodium Chloride 0.9% 250 ml [Ns] 250 ml IV QDAY@2100 Azithromycin Inj [Zithromax Inj] 500 mg Med 07/06/25 20:25 Discontinued Sodium Chloride 0.9% 250 ml [Ns] 250 ml IV X1 Dextrose 50% Syr [D50w Syringe Abboject] Med 07/06/25 20:27 Active 25 ml IV Q15MIN PRN Dextrose 50% Syr [D50w Syringe Abboject] Med 07/06/25 20:27 Active 50 ml IV Q15MIN PRN Furosemide Inj [Lasix Inj] Med 07/06/25 16:52 Discontinued 80 mg IVP X1 ONE Glucagon Inj Med 07/06/25 20:27 Active 1 mg IM Q15MIN PRN INSULIN LISPRO (AdmeLOG) [HumaLOG] Med 07/07/25 07:30 Active See Protocol SC AC Ipratropium [place] Rt Renay [Atrovent Rt Renay] Med 07/06/25 16:54 Discontinued 0.5 mg INH X1 ONE MethylPREDNISolone. [SoluMEDROL Inj] Med 07/06/25 20:27 Discontinued 125 mg IVP X1 ONE Code Status Routine Oth 07/06/25 20:25 Ordered BiPAP / CPAP NEEDED RT 07/06/25 20:27 Active Oxygen Delivery NOW RT 07/06/25 16:52 Active Vital Signs Vital signs: Vital Signs Temperature 97.6 F 07/06/25 16:11 Pulse Rate 63 07/06/25 16:11 Respiratory Rate 26 H 07/06/25 16:11 Blood Pressure 124/82 07/06/25 16:11 Pulse Oximetry (%) 98 07/06/25 16:11 Oxygen Delivery Method Nasal Cannula 07/06/25 16:11 Oxygen Flow Rate 6 07/06/25 16:11 Shortness of Breath / Dyspnea MDM Narrative MDM Narrative:: Radha Cuellar am scribing for and in the presence of Dr. Estrella. Patient data External records reviewed:: [facility] previous records (I reviewed ED visit on 02/01/2025 ) and EMS form Clinical information provided by:: patient and EMS Social determinants that could affect healthcare access:: none Patient has the following chronic illnesses:: HFrEF 20-25% (04/2024), s/p pacemaker, hypertension, diabetes, hyperlipidemia, COPD on 2L home oxygen How is presenting disease/condition affected by chronic disease/condition?: exacerbated by Evaluation data The following diagnostics were reviewed and interpreted by me:: lab results, radiology exam(s) and EKG tracing(s) (07/06/2025 @ 16:46h. Atrial pacemaker, rate 62, no STEMI. ) Lab and/or radiology exams considered but not ordered:: None Interpretation Summary: Ordering Physician: Devi Estrella MD Date of Service: 07/06/25 Procedure(s): XR chest 1V portable Accession Number(s): [id number] cc: Nancy Obando NP; Geoff Bruce MD; Devi Estrella MD~ Examination: AP chest single view Technique one AP portable semiupright chest single view Date and time: July 06, 2025, 1724 hours Comparison May 04, 2025 INDICATIONS: Shortness of breath chest pain today. FINDINGS: The film is rotated RPO Mild enlargement cardiac contour Ectatic and enlarged thoracic aorta Moderate vascular congestion with septal edema, subtle at the lung bases Cardiac leads satisfactory position Prominent osteopenia IMPRESSION: Early heart failure Dictated By: Geoff Bruce MD Signed By: <Electronically signed by Geoff Bruce MD in OV> 07/06/25 1819 Medications / Prescriptions Medications or Prescriptions considered but not ordered:: None Medication administrations:: Medication Administration History Acetaminophen (Acetaminophen 325 Mg Tablet) 650 mg PO Q6H PRN PRN Reason: Fever >100.4 Stop: 08/05/25 20:30 Acetaminophen (Acetaminophen Supp 650 Mg Supp) 650 mg NE Q6H PRN PRN Reason: PAIN Stop: 08/05/25 20:30 Albuterol/Ipratropium (Albuterol/Ipratropium (Duoneb) Rt Renay 3 Ml Nebu) 3 ml INH Q4HRRT REKHA Stop: 08/05/25 22:59 Last Admin: 07/07/25 06:14 Dose: 3 ml Documented By: Admin: 07/07/25 02:29 Dose: 3 ml Documented By: Admin: 07/06/25 22:50 Dose: 3 ml Documented By: SC Dextrose (Dextrose 50%-Water Inj 50 Ml Syringe) 25 ml IV Q15MIN PRN PRN Reason: BG 50-70 responsive npo pt Stop: 08/05/25 20:26 Dextrose (Dextrose 50%-Water Inj 50 Ml Syringe) 50 ml IV Q15MIN PRN PRN Reason: BG <50 OR BG <70 & pt unresponsive Stop: 08/05/25 20:26 Glucagon (Glucagon Inj 1 Mg Vial) 1 mg IM Q15MIN PRN PRN Reason: BG <70, and no IV access Heparin Sodium (Porcine) (Heparin Sod Inj 5000 Unit/Ml Vial) 5,000 unit SC Q12HR REKHA Stop: 07/20/25 20:59 Last Admin: 07/06/25 21:12 Dose: 5,000 unit Documented By: MIGUEL ANGEL Co-signed By: EMILIANO Azithromycin 250 mg/ Sterile (Water 2.5 ml/ Sodium Chloride) 252.5 mls @ 252.5 mls/hr IV QDAY@2100 [facility] Stop: 07/08/25 21:59 Insulin Human Lispro (Insulin Lispro (Admelog) 1 Unit/0.01 Ml Unit) 0 unit SC [facility]; Protocol Stop: 08/06/25 07:29 Ondansetron HCl (Ondansetron Inj 2 Mg/Ml Inj 2 Ml) 4 mg IVP Q6H PRN; Protocol PRN Reason: NAUSEA OR VOMITING Stop: 08/05/25 20:30 Pantoprazole Sodium (Pantoprazole Inj 40 Mg Vial) 40 mg IVP QDAY [facility] Stop: 08/06/25 08:59 Sennosides (Senna Tablet) 1 tab PO QDAY PRN; Protocol PRN Reason: constipation Stop: 08/05/25 20:30 Discontinued Medications Albuterol (Albuterol Rt 2.5 Mg/3 Ml Nebu) 5 mg INH X1 ONE Stop: 07/06/25 16:55 Last Admin: 07/06/25 17:08 Dose: 5 mg Documented By: JARET Albuterol/Ipratropium (Albuterol/Ipratropium (Duoneb) Rt Renay 3 Ml Nebu) Confirm Administered Dose 3 ml .ROUTE .STK-MED ONE Stop: 07/06/25 19:41 Last Admin: 07/06/25 19:53 Dose: 3 ml Documented By: SC Furosemide (Furosemide Inj 10 Mg/Ml 4ml Vial) 80 mg IVP X1 ONE Stop: 07/06/25 16:53 Last Admin: 07/06/25 17:49 Dose: 80 mg Documented By: VL Azithromycin 500 mg/ Sodium (Chloride) 250 mls @ 250 mls/hr IV X1 ONE Stop: 07/06/25 21:24 Last Infusion: 07/06/25 22:21 Dose: Infused Documented By: [email or web address] Admin: 07/06/25 21:11 Dose: 250 mls/hr Documented By: MIGUEL ANGEL Ipratropium [place] (Ipratropium Rt 0.5 Mg/ 2.5 Ml Nebu) 0.5 mg INH X1 ONE Stop: 07/06/25 16:55 Last Admin: 07/06/25 17:08 Dose: 0.5 mg Documented By: JARET Methylprednisolone Sodium Succinate (Methylprednisolone Sod Succ 40 Mg Vial) 125 mg IVP X1 ONE Stop: 07/06/25 20:28 Methylprednisolone Sodium Succinate (Methylprednisolone Sod Succ 62.5 Mg/Ml 2ml Vial) 125 mg IVP X1 ONE Stop: 07/06/25 20:45 Last Admin: 07/06/25 20:49 Dose: 125 mg Documented By: XENA See above Consultations Consultation(s) initiated? (list below): No Diagnosis Shortness of Breath Differential Diagnosis: acute exacerbation of chronic obstructive airways disease, congestive heart failure, community acquired pneumonia and asthma with exacerbation Most likely diagnosis given after review of the tests above:: Dyspnea CHF exacerbation Admission Indicated Admission indicated?: indicated Admission Request Was there a request for admission?: Yes Admission Attestation Admission request attestation: Discussed case with [] from Hospitalist service regarding admission. Discussed patients ED course, exam findings, labs, and radiology results. The Hospitalist [agrees,declines] to accept the patient for admission. Disposition Plan Disposition Plan: Admit Discharge Plan Plan Patient Disposition: Admit Acute Care w/in Hospital Problem List Clinical Impression: Dyspnea, CHF exacerbation
[2025-07-06] MEDS: FUROSEMIDE INJ 10 MG/ML 4ML VIAL 80 MG IVP (17:49)
[2025-07-06 18:07] LABS: Basophils # (Auto) 0.1 Thou/mm3 (0.0-0.2); Basophils % (Auto) 1 % (0-2.5); Eosinophils # (Auto) 0.1 Thou/mm3 (0.0-0.5); Eosinophils % (Auto) 1 % (0-10); Hematocrit 34.0 % (36.0-46.0); Hemoglobin 10.1 g/dL (12.0-16.0); Immature Granulocytes Auto 0.08 Thou/mm3 (0.00-0.00); Lymphocytes # (Auto) 0.8 Thou/mm3 (1.0-4.8); Lymphocytes % (Auto) 8 % (10-50); Mean Corpuscular HGB Conc 29.7 g/dl (31.0-37.0); Mean Corpuscular Hemoglobin 22.9 pg (25.0-35.0); Mean Corpuscular Volume 77 fL (80-100); Monocytes # (Auto) 1.1 Thou/mm3 (0.0-0.8); Monocytes % (Auto) 11 % (0-12); Neutrophils # (Auto) 8.0 Thou/mm3 (1.8-7.7); Neutrophils % (Auto) 79 % (37-80); Nucleated Red Blood Cell # 0.17 Thou/mm3 (0.00-0.00); Nucleated Red Blood Cell % 2 /100 WBC (0); Platelet Count 482 Thou/mm3 (140-440); RDW Standard Deviation 52.0 fL (36.4-46.3); Red Blood Count 4.42 Miln/mm3 (4.00-5.20); White Blood Count 10.1 Thou/mm3 (3.6-11.0)
[2025-07-06 18:23] LABS: INR 1.3 (0.9-1.3); Partial Thromboplastin Time 23.8 Seconds (22.0-36.0); Prothrombin Time 13.9 Seconds (9.0-12.2)
[2025-07-06 18:29] LABS: B-Type Natriuretic Peptide 971 pg/mL (0-100)
[2025-07-06 18:35] LABS: Alanine Aminotransferase 69 U/L (10-49); Albumin, Serum 4.0 gm/dL (3.4-4.8); Albumin/Globulin Ratio 2.0 (1.2-2.2); Alkaline Phosphatase 316 U/L (46-116); Anion Gap 12 (7-16); Aspartate Amino Transferase 62 U/L (0-34); BUN/Creatinine Ratio 20 Ratio (12-20); Bilirubin,Total 2.4 mg/dL (0.3-1.2); Blood Urea Nitrogen 30 mg/dL (9-23); Calcium 9.4 mg/dL (8.3-10.6); Calcium (Corrected) 9.4 mg/dL (8.5-10.1); Carbon Dioxide 18.1 mMol/L (20.0-31.0); Chloride 103 mMol/L (98-107); Creatinine (Component) 1.5 mg/dL (0.6-1.3); Estimated Creatinine Clearance 26.7 mL/min (>60); Globulin 2.0 gm/dL (2.3-3.5); Glucose 255 mg/dL (74-106); Magnesium 1.9 mg/dL (1.6-2.6); Osmolality,Calculated 281 (275-295); Potassium 5.5 mMol/L (3.4-5.1); Procalcitonin 0.09 ng/ml (0.0-0.49); Sodium 133 mMol/L (136-145); Total Protein 6.0 gm/dL (5.7-8.2); Troponin I 0.024 ng/mL (0.0-0.045); eGFR 35 See Note
[2025-07-06] MEDS: ALBUTEROL/IPRATROPIUM (Duoneb) RT SOL 3 ML NEBU (19:53)
[2025-07-06 20:11] LABS: Collection Type, Urine Clean Catch
--- NOTE | 2025-07-06 20:27 | XR_ITS ---
Examination: Duplex scan of the lower extremity, unilateral right Date and time of exam: July 06, 2020 04/13/1953 INDICATIONS: Bilateral leg swelling today Technique: Duplex scan of the extremity veins using B-mode/grayscale imaging and Doppler spectral analysis and color flow Attention is directed to internal echogenicity, compression and augmentation involving these veins, color flow assessment, spectral analysis Findings: Major deep venous structures in the extremity demonstrate normal course and caliber. There is no evidence of deep vein thrombosis. Normal color flow and spectral analysis Impression: Negative for DVT..
--- NOTE | 2025-07-06 20:38 | ESHP_ITS ---
<Statement entered by Rd Encarnacion MD - 07/07/25 06:30> I have discussed and was present for the essential components of the history, physical examination, diagnosis, and treatment plan with the resident. I agree with the patient's care as documented by the resident and amended herein by me. Rd Encarnacion MD FACP. Documentation for date of: 07/06/25 HPI History of Present Illness Chief complaint: Shortness of breath History of present illness: 79-year-old female with a history of HFrEF (20?25%, April 2024) s/p pacemaker, COPD on 2 L home oxygen, CAD, DM2, HTN, HLD, and dementia, presenting with 3?4 days of gradually worsening shortness of breath. At baseline, she is on 2 L NC and reports maintaining oxygen saturations above 92%. Orthopnea is long-standing and unchanged; however, she endorses occasional PND. No chest pain, pressure, palpitations, dizziness, or syncope. No hemoptysis or sputum color change. Denies weight gain. Reports bilateral lower extremity swelling and right lower quadrant abdominal pain. She was brought to the ED on 6 L NC (baseline 2 L). Exam notable for bibasilar rales in ED, but currently lungs are clear on auscultation. Cardiac exam reveals regular rate and rhythm. Multiple seborrheic keratoses noted on abdomen. Pat placed for oliguria with immediate output. In ED, patient received: * IV furosemide 80 mg ?1 * Duoneb treatment ?2 * IV steroid ?1 (methylprednisolone) * Azithromycin 500 mg ?1, with plan for 250 mg daily ?2 days for COPD exacerbation * Started on BiPAP * Pat catheter placed She denies recent fevers, chills, cough changes, chest pain, sick contacts, recent travel, or recent medication changes. Med rec pending. Caregiver nurse assists her at home. ROS: * General: No fevers, chills, weight gain/loss * Cardiac: Baseline orthopnea, occasional PND, leg swelling; denies chest pain, palpitations, syncope * Respiratory: Dyspnea, no cough change, no hemoptysis * GI: RLQ abdominal pain; no nausea/vomiting/diarrhea * : Oliguria last 2 days, did have very small output per patient yesterday * Neuro: No dizziness, no focal weakness * Skin: Seborrheic keratoses on abdomen Past Medical History: * HFrEF 20?25% (04/2024) s/p pacemaker * COPD on 2 L home O? * CAD * DM2 * HTN * HLD * Dementia * Anxiety, depression * Osteoarthritis Past Surgical History: * Pacemaker * Vein operation (right leg), unclear * Ear surgery * Tonsillectomy * Hysterectomy Allergies: * Penicillin * Sulfa Family History: Noncontributory to current symptoms Social History: * Former smoker * No alcohol or illicit drug use * Lives at home with caregiver nurse assistance Exam Vital Signs Temp Pulse Resp BP Pulse Ox O2 Del Method O2 Flow Rate 99.3 F 61 16 123/95 H 92 L BiPAP 2 07/06/25 20:16 07/06/25 20:16 07/06/25 20:16 07/06/25 20:16 07/06/25 20:16 07/06/25 20:16 07/06/25 19:31 Narrative Exam General: Awake, alert, no acute distress on BiPAP HEENT: NC/AT, EOMI, MMM Neck: No JVD Cardiac: Regular rate and rhythm, no murmurs Lungs: Clear to auscultation bilaterally Abdomen: Soft, non-distended, mild RLQ tenderness, no guarding/rebound Extremities: 2+ bilateral LE edema, R +4 > L +2 Skin: Multiple seborrheic keratoses on abdomen Neuro: AAOx3, no focal deficits Results: Labs 07/06/25 17:39 07/06/25 17:39 Labs: Short CBC 07/06/25 Range/Units 17:39 WBC 10.1 (3.6-11.0) Thou/mm3 Hgb 10.1 L (12.0-16.0) g/dL Hct 34.0 L (36.0-46.0) % Plt Count 482 H (140-440) Thou/mm3 BMP 07/06/25 17:39 Sodium 133 L Potassium 5.5 H Chloride 103 Carbon Dioxide 18.1 L BUN 30 H Creatinine 1.5 H Glucose 255 H Calcium 9.4 Cardiac Enzymes 07/06/25 Range/Units 17:39 Troponin I 0.024 (0.0-0.045) ng/mL Liver Function 07/06/25 Range/Units 17:39 Total Bilirubin 2.4 H (0.3-1.2) mg/dL AST 62 H (0-34) U/L ALT 69 H (10-49) U/L Alkaline Phosphatase 316 H (46-116) U/L Albumin 4.0 (3.4-4.8) gm/dL ABG Interpretation ABG results: 07/06/25 17:05 ABG pH 7.37 ABG pCO2 28 L ABG pO2 94 ABG HCO3 16 L ABG O2 Saturation 98 ABG Base Excess -8 L Quality Measures Quality Measures VTE prophylaxis and none Advance care planning discussed with:: patient Medications Home Medications and Allergies Home Medications ?Medication ?Instructions ?Recorded ?Confirmed ?Type donepezil 10 mg tablet 10 mg PO QPM 09/05/21 History metformin 500 mg tablet 500 mg PO BID 09/05/2105/13 History metoprolol succinate 25 mg 25 mg PO QDAY 02/27/2404/25 History tablet,extended release 24 hr spironolactone 25 mg tablet 25 mg PO QDAY 10/26/24 History amiodarone 100 mg tablet 100 mg PO DAILY Atrial fibri lation 05/04/25 05/13/25 History furosemide 40 mg tablet 40 mg PO DAILY Heart failure 05/04/25 05/13/25 History dapagliflozin propanediol 10 mg 10 mg PO QDAY 05/05/25 05/13/25 History tablet Allergies Allergy/AdvReac Type Severity Reaction Status Date / Time Penicillins Allergy Severe UNKNOWN Verified 06/14/25 13:23 Sulfa (Sulfonamide Allergy Severe Swelling Verified 06/14/25 13:23 Antibiotics) Visit Medications Acetaminophen (Acetaminophen 325 Mg Tablet) 650 mg PO Q6H PRN PRN Reason: Fever >100.4 Stop: 08/05/25 20:30 Acetaminophen (Acetaminophen Supp 650 Mg Supp) 650 mg WA Q6H PRN PRN Reason: PAIN Stop: 08/05/25 20:30 Dextrose (Dextrose 50%-Water Inj 50 Ml Syringe) 25 ml IV Q15MIN PRN PRN Reason: BG 50-70 responsive npo pt Stop: 08/05/25 20:26 Dextrose (Dextrose 50%-Water Inj 50 Ml Syringe) 50 ml IV Q15MIN PRN PRN Reason: BG <50 OR BG <70 & pt unresponsive Stop: 08/05/25 20:26 Glucagon (Glucagon Inj 1 Mg Vial) 1 mg IM Q15MIN PRN PRN Reason: BG <70, and no IV access Heparin Sodium (Porcine) (Heparin Sod Inj 5000 Unit/Ml Vial) 5,000 unit SC Q12HR [facility] Stop: 07/20/25 20:59 Azithromycin 500 mg/ Sodium (Chloride) 250 mls @ 250 mls/hr IV X1 ONE Stop: 07/06/25 21:24 Azithromycin 250 mg/ Sterile (Water 2.5 ml/ Sodium Chloride) 252.5 mls @ 252.5 mls/hr IV X1 [facility] Stop: 07/08/25 20:29 Insulin Human Lispro (Insulin Lispro (Admelog) 1 Unit/0.01 Ml Unit) 0 unit SC AC REKHA; Protocol Stop: 08/06/25 07:29 Methylprednisolone Sodium Succinate (Methylprednisolone Sod Succ 40 Mg Vial) 125 mg IVP X1 ONE Stop: 07/06/25 20:28 Ondansetron HCl (Ondansetron Inj 2 Mg/Ml Inj 2 Ml) 4 mg IVP Q6H PRN; Protocol PRN Reason: NAUSEA OR VOMITING Stop: 08/05/25 20:30 Pantoprazole Sodium (Pantoprazole Inj 40 Mg Vial) 40 mg IVP QDAY REKHA Stop: 08/06/25 08:59 Sennosides (Senna Tablet) 1 tab PO QDAY PRN; Protocol PRN Reason: constipation Stop: 08/05/25 20:30 Discontinued Medications Albuterol (Albuterol Rt 2.5 Mg/3 Ml Nebu) 5 mg INH X1 ONE Stop: 07/06/25 16:55 Last Admin: 07/06/25 17:08 Dose: 5 mg Furosemide (Furosemide Inj 10 Mg/Ml 4ml Vial) 80 mg IVP X1 ONE Stop: 07/06/25 16:53 Last Admin: 07/06/25 17:49 Dose: 80 mg Ipratropium [place] (Ipratropium Rt 0.5 Mg/ 2.5 Ml Nebu) 0.5 mg INH X1 ONE Stop: 07/06/25 16:55 Last Admin: 07/06/25 17:08 Dose: 0.5 mg Assessment & Plan Plan 79F with HFrEF (20?25%), COPD on 2 L home O2, CAD, DM2, HTN, HLD, dementia presenting with 3?4 days of progressive dyspnea, occasional PND, oliguria, LE edema, and RLQ abdominal pain, now on BiPAP after ED treatment with IV Lasix, nebs, steroid, azithromycin, and Pat placement; workup ongoing for COPD vs CHF exacerbation with MICHEAL, mild LFT elevation, anemia, and DVT/PE rule-out. # Acute on chronic hypoxic respiratory failure Likely from COPD exacerbation vs CHF exacerbation. Currently stable on BiPAP. On 6 L NC in ED, SpO2 low 80s; baseline 2 L. No fever, sputum change, or chest pain. Lungs now clear on auscultation. Plan: * Titrate O2 to keep SpO2 >88% (COPD goal) * Continue BiPAP per RT, wean as tolerated * Duonebs q4h scheduled * Azithromycin 500 mg ?1 given in ED; continue 250 mg PO daily ?2 days * IV methylprednisolone ?1 given in ED * Monitor respiratory status closely # COPD exacerbation Mild symptoms without infectious sputum changes. Chronic COPD on 2 L O2 No change in sputum color/volume, no infectious signs; received nebs ?2 and improved. Plan: * As above under respiratory failure * Continue bronchodilators * Complete azithromycin course * No sputum culture at this time # CHF exacerbation, possible Suspected based on BNP elevation, peripheral edema, and possible cardiorenal syndrome. BNP 971, LE edema R>L, mild orthopnea (baseline) and occasional PND Given IV Lasix 80 mg ?1 in ED. Plan: * Hold further diuresis pending renal function and volume status * Daily weights, strict I&O # MICHEAL Likely cardiorenal vs prerenal in setting of CHF/COPD exacerbation. Cr 1.5 (baseline 1.2), oliguric on presentation; Pat placed with immediate output. Plan: * Avoid nephrotoxins * Hold ACEi/ARB/ARNI until renal function improves * Repeat BMP in AM # Hyperkalemia Mild elevation without ECG changes. K 5.5; EKG shows paced rhythm, no acute changes. Plan: * Monitor K closely * Repeat BMP in AM # Mild transaminitis & elevated Alk Phos Likely hepatic congestion. AST 62, ALT 69, Alk Phos 316; TBili 2.4; no abdominal distension or jaundice. Plan: * Trend LFTs * Avoid hepatotoxic meds, acetaminophen under 2 g okay # Anemia Chronic, microcytic; likely anemia of chronic disease vs iron deficiency. Hgb 10.1, MCV 77; no active bleeding. Plan: * Monitor CBC * No transfusion indicated at this time * transfuse if Hgb <7 or symptomatic # RLQ abdominal pain Mild tenderness without peritoneal signs. Soft abdomen, mild localized tenderness RLQ; no guarding/rebound. Plan: * Monitor symptoms * Acetaminophen PRN for pain * Avoid NSAIDs # DVT/PE rule-out PE less likely but risk present; CTA deferred due to MICHEAL, RLE US pending. Wells score = 3 No tachycardia, hemoptysis, recent surgery, prior DVT/PE, or malignancy. Plan: * RLE ultrasound pending * Treat based on imaging results # Chronic conditions- CAD, DM2, HTN, HLD, dementia. Stable; med rec pending for home regimen. Plan: * Resume home meds once med rec complete * Hold metformin if on (MICHEAL) Health Maintenance: Disposition: Telemetry Diet: 2 g sodium, diabetic diet, 1.5 fluid restriction Thromboprophylaxis: Heparin SC q12h GI prophylaxis: Protonix Pain: Acetaminophen PRN Other: Daily weights, strict I&O, maintain Pat ----- Plan discussed with attending physician Dr. Shashank Lino MD PGY-1 Internal Medicine
[2025-07-06] MEDS: MethylPREDNISolone SOD SUCC 62.5 MG/ML 2ML VIAL 125 MG IVP (20:49)
[2025-07-06 21:03] LABS: Bacteria,Urine 4+; Bilirubin,Urine Negative (Negative); Blood,Urine 2+ (Negative); Budding Yeast,Urine Present; Color,Urine Yellow (Lt Yel-Yel); Glucose, Urine 4+ (Negative); Ketones,Urine Negative (Negative); Leukocyte Esterase,Urine Positive (Negative); Nitrite,Urine Negative (Negative); PH,Urine 6.0 (5.0-7.0); Protein,Urine Trace (Neg - Trace); RBC,Urine 253 /hpf (0-3); Specific Gravity,Urine 1.006 (1.001-1.035); Squamous Epithelial Cell,Urine 1 /hpf (0-5); Urobilinogen,Urine Negative mg/dL (0.0-1.0); WBC,Urine 902 /hpf (0-5)
[2025-07-06 21:06] LABS: Clarity,Urine Cloudy (Clear/Hazy)
[2025-07-06] MEDS: AZITHROMYCIN INJ 500 MG in SODIUM CHLORIDE 0.9% 250 ML 250 ML 250 MG IV (21:11)
[2025-07-06] MEDS: HEPARIN SOD INJ 5000 UNIT/ML VIAL SC (21:12)
[2025-07-06] MEDS: ALBUTEROL/IPRATROPIUM (Duoneb) RT SOL 3 ML NEBU INH (22:50)
[2025-07-07] VITALS (15 sets, daily range): BP systolic 93–142; BP diastolic 58–87; PULSE 60–98; RESP 15–202; TEMP 36.1–36.6; O2SAT 94–100
[2025-07-07] MEDS: ALBUTEROL/IPRATROPIUM (Duoneb) RT SOL 3 ML NEBU INH ×6 (02:29→23:45)
[2025-07-07 05:05] LABS: Base Excess -5 (-3-3); HCO3 19 mEq/L (20-26); O2 Saturation 99 % (91-98); PCO2 30 mmHg (32.0-48.0); PO2 98 mmHg (83-108); pH, Arterial 7.40 (7.35-7.45)
[2025-07-07 05:16] LABS: Allen Test Performed/OK; Inspired Oxygen, FIO2 30 %; Puncture Site Right Radial
[2025-07-07 06:13] LABS: Basophils # (Auto) 0.0 Thou/mm3 (0.0-0.2); Basophils % (Auto) 0 % (0-2.5); Eosinophils # (Auto) 0.0 Thou/mm3 (0.0-0.5); Eosinophils % (Auto) 0 % (0-10); Hematocrit 30.7 % (36.0-46.0); Hemoglobin 9.3 g/dL (12.0-16.0); Immature Granulocytes Auto 0.06 Thou/mm3 (0.00-0.00); Lymphocytes # (Auto) 0.2 Thou/mm3 (1.0-4.8); Lymphocytes % (Auto) 4 % (10-50); Mean Corpuscular HGB Conc 30.3 g/dl (31.0-37.0); Mean Corpuscular Hemoglobin 22.5 pg (25.0-35.0); Mean Corpuscular Volume 74 fL (80-100); Monocytes # (Auto) 0.1 Thou/mm3 (0.0-0.8); Monocytes % (Auto) 1 % (0-12); Neutrophils # (Auto) 5.7 Thou/mm3 (1.8-7.7); Neutrophils % (Auto) 94 % (37-80); Nucleated Red Blood Cell # 0.05 Thou/mm3 (0.00-0.00); Nucleated Red Blood Cell % 1 /100 WBC (0); Platelet Count 375 Thou/mm3 (140-440); RDW Standard Deviation 50.5 fL (36.4-46.3); Red Blood Count 4.13 Miln/mm3 (4.00-5.20); White Blood Count 6.1 Thou/mm3 (3.6-11.0)
[2025-07-07 06:37] LABS: Alanine Aminotransferase 74 U/L (10-49); Albumin, Serum 3.8 gm/dL (3.4-4.8); Albumin/Globulin Ratio 2.0 (1.2-2.2); Alkaline Phosphatase 308 U/L (46-116); Anion Gap 17 (7-16); Aspartate Amino Transferase 55 U/L (0-34); BUN/Creatinine Ratio 23 Ratio (12-20); Bilirubin,Total 2.0 mg/dL (0.3-1.2); Blood Urea Nitrogen 36 mg/dL (9-23); Calcium 9.1 mg/dL (8.3-10.6); Calcium (Corrected) 9.3 mg/dL (8.5-10.1); Carbon Dioxide 19.4 mMol/L (20.0-31.0); Chloride 101 mMol/L (98-107); Creatinine (Component) 1.6 mg/dL (0.6-1.3); Estimated Creatinine Clearance 25.0 mL/min (>60); Globulin 1.9 gm/dL (2.3-3.5); Glucose 267 mg/dL (74-106); Magnesium 1.7 mg/dL (1.6-2.6); Osmolality,Calculated 291 (275-295); Phosphorous 4.1 mg/dL (2.4-5.1); Potassium 3.8 mMol/L (3.4-5.1); Sodium 137 mMol/L (136-145); Total Protein 5.7 gm/dL (5.7-8.2); eGFR 33 See Note
[2025-07-07] MEDS: INSULIN LISPRO (AdmeLOG) 1 UNIT/0.01 ML UNIT SC ×3 (07:43→17:53)
[2025-07-07] MEDS: HEPARIN SOD INJ 5000 UNIT/ML VIAL SC ×2 (08:48→21:30)
--- NOTE | 2025-07-07 09:32 | ESPR_ITS ---
<Statement entered by Daksha Olguin MD - 07/19/25 07:43> I reviewed above note and agree with findings and plans. I have also personally examined the patient with medicine team and went over assessment and plan with medical team including design engineering intern and resident physician. <Statement entered by Daphne Velasquez MD - 07/07/25 18:51> Patient is seen at bedside. Currently saturating on 2 L of oxygen which is patient's home oxygen levels. Patient stated she has not been taking her Lasix for approximately a week because of having to go to the restroom consistently. And was found to be in acute CHF exacerbation. Will continue IV diureses and monitor labs closely. Patient has also started on steroids due to diffuse wheezing bilaterally. Chest x-rays are clear of pneumonia, blood cultures are negative and there is no white count however urinalysis is positive for UTI therefore we will start the patient on ceftriaxone. Patient's blood glucose was elevated in the 200s and repeat was 338 therefore in addition to sliding scale step 3 will add Lantus 10 units at bedtime. Patient was seen and examined by me personally. I have directly supervised and reviewed documentation by the team resident and agree with its findings.. ------- Plan of care was discussed with the attending, Dr. Sharif Velasquez, PGY-2 Documentation for date of: 07/07/25 Subjective Subjective Interval history: Patient admitted overnight. Patient seen and examined at bedside. Patient reports that her shortness of breath and lower leg edema have improved since last night. Endorses having increased urinary frequency with small volume for the past 3 days. Reports having right lateral rib pain from leaning over a chair about 6 weeks ago, but is only tender to palpation. In the room patient saturating at 96% on 2 L nasal cannula, when she was admitted she was requiring 6 L. Patient denies chest pain, abdominal pain, or fever. Start IV Lasix 40 mg twice daily, DuoNebs every 4 hours scheduled with every 2 as needed scheduled. Start IV methylprednisolone 40 mg daily. Stop azithromycin as no signs of pneumonia and start ceftriaxone for UTI. Ware [employer] Dr. Pitts was consulted. Exam Vital Signs Temp Pulse Resp BP Pulse Ox O2 Del Method O2 Flow Rate 96.9 F 69 26 H 138/75 H 97 Nasal Cannula 4 07/07/25 08:00 07/07/25 08:00 07/07/25 08:00 07/07/25 08:00 07/07/25 08:00 07/07/25 08:00 07/07/25 08:00 FiO2 30 07/07/25 06:14 Narrative Exam GENERAL: AOx3, no acute distress HEENT: NC/AT, mucous membranes dry, bilateral sclera anicteric CARDIOVASCULAR: regular rate and rhythm, S1/S2 present, no murmurs appreciated PULMONARY: +diffuse b/l wheezes +crackles most at bases ABDOMINAL: soft, non-tender, non-distended, no rebound/guarding, bowel sounds present EXTREMITIES: 1+ pitting edema at shins, 2+ pitting edema at hips SKIN: warm and dry, intact, no rashes NEURO: CN II-XII grossly intact, no focal deficits, alert, following commands Objective Labs 07/07/25 05:46 07/07/25 09:27 Labs: Laboratory Results - last 24 hr 07/06/25 07/06/25 07/06/25 17:05 17:39 19:53 WBC 10.1 RBC 4.42 Hgb 10.1 L Hct 34.0 L MCV 77 L MCH 22.9 L MCHC 29.7 L RDW Std Deviation 52.0 H Plt Count 482 H Neut % (Auto) 79 Lymph % (Auto) 8 L [place] % (Auto) 11 Eos % (Auto) 1 Baso % (Auto) 1 Neut # (Auto) 8.0 H Lymph # (Auto) 0.8 L [place] # (Auto) 1.1 H Eos # (Auto) 0.1 Baso # (Auto) 0.1 Immature Gran # (Auto) 0.08 H Absolute Nucleated RBC 0.17 H Immature Gran % 1 H Nucleated RBC % 2 H PT 13.9 H INR 1.3 APTT 23.8 Puncture Site Right Radial ABG pH 7.37 ABG pCO2 28 L ABG pO2 94 ABG HCO3 16 L ABG O2 Saturation 98 ABG Base Excess -8 L Oxygen Liter Flow 2 FiO2 Sodium 133 L Potassium 5.5 H Chloride 103 Carbon Dioxide 18.1 L Anion Gap 12 BUN 30 H Creatinine 1.5 H Estim Creat Clear Calc 26.7 L eGFR 35 L BUN/Creatinine Ratio 20 Glucose 255 H Calculated Osmolality 281 Calcium 9.4 Corrected Calcium 9.4 Phosphorus Magnesium 1.9 Total Bilirubin 2.4 H AST 62 H ALT 69 H Alkaline Phosphatase 316 H Troponin I 0.024 B-Natriuretic Peptide 971 H* Total Protein 6.0 Albumin 4.0 Globulin 2.0 L Albumin/Globulin Ratio 2.0 Procalcitonin 0.09 Ur Collection Type Clean Catch Urine Color Yellow Urine Clarity Cloudy A Urine pH 6.0 Ur Specific [place] 1.006 Urine Protein Trace Urine Glucose (UA) 4+ A Urine Ketones Negative Urine Blood 2+ A Urine Nitrite Negative Urine Bilirubin Negative Urine Urobilinogen (Auto) Negative Ur Leukocyte Esterase Positive Urine RBC 253 H Urine WBC 902 H Ur Squamous Epith Cells 1 Urine Bacteria 4+ A Urine Yeast (Budding) Present A 07/07/25 07/07/25 04:47 05:46 WBC 6.1 RBC 4.13 Hgb 9.3 L Hct 30.7 L MCV 74 L MCH 22.5 L MCHC 30.3 L RDW Std Deviation 50.5 H Plt Count 375 D Neut % (Auto) 94 H Lymph % (Auto) 4 L [place] % (Auto) 1 Eos % (Auto) 0 Baso % (Auto) 0 Neut # (Auto) 5.7 Lymph # (Auto) 0.2 L [place] # (Auto) 0.1 Eos # (Auto) 0.0 Baso # (Auto) 0.0 Immature Gran # (Auto) 0.06 H Absolute Nucleated RBC 0.05 H Immature Gran % 1 H Nucleated RBC % 1 H PT INR APTT Puncture Site Right Radial ABG pH 7.40 ABG pCO2 30 L ABG pO2 98 ABG HCO3 19 L ABG O2 Saturation 99 H ABG Base Excess -5 L Oxygen Liter Flow FiO2 30 Sodium 137 Potassium 3.8 D Chloride 101 Carbon Dioxide 19.4 L Anion Gap 17 H BUN 36 H Creatinine 1.6 H Estim Creat Clear Calc 25.0 L eGFR 33 L BUN/Creatinine Ratio 23 H Glucose 267 H Calculated Osmolality 291 Calcium 9.1 Corrected Calcium 9.3 Phosphorus 4.1 Magnesium 1.7 Total Bilirubin 2.0 H AST 55 H ALT 74 H Alkaline Phosphatase 308 H Troponin I B-Natriuretic Peptide Total Protein 5.7 Albumin 3.8 Globulin 1.9 L Albumin/Globulin Ratio 2.0 Procalcitonin Ur Collection Type Urine Color Urine Clarity Urine pH Ur Specific [place] Urine Protein Urine Glucose (UA) Urine Ketones Urine Blood Urine Nitrite Urine Bilirubin Urine Urobilinogen (Auto) Ur Leukocyte Esterase Urine RBC Urine WBC Ur Squamous Epith Cells Urine Bacteria Urine Yeast (Budding) ABG Interpretation ABG results: 07/06/25 07/07/25 17:05 04:47 ABG pH 7.37 7.40 ABG pCO2 28 L 30 L ABG pO2 94 98 ABG HCO3 16 L 19 L ABG O2 Saturation 98 99 H ABG Base Excess -8 L -5 L Quality Measures Quality Measures VTE prophylaxis and none Advance care planning discussed with:: patient Assessment & Plan Assessment Current Active Medications: Generic Name Dose Route Start Last Admin Trade Name Freq PRN Reason Stop Dose Admin Acetaminophen 650 mg 07/06/25 20:31 Acetaminophen 325 Mg Tablet PO 08/05/25 20:30 Q6H PRN Fever >100.4 Acetaminophen 650 mg 07/06/25 20:31 Acetaminophen Supp 650 Mg Supp MD 08/05/25 20:30 Q6H PRN PAIN Albuterol/Ipratropium 3 ml 07/06/25 23:00 07/07/25 06:14 Albuterol/Ipratropium (Duoneb) Rt Renay 3 Ml Nebu INH 08/05/25 22:59 3 ml Q4HRRT REKHA Administration Dextrose 25 ml 07/06/25 20:27 Dextrose 50%-Water Inj 50 Ml Syringe IV 08/05/25 20:26 Q15MIN PRN BG 50-70 responsive npo pt Dextrose 50 ml 07/06/25 20:27 Dextrose 50%-Water Inj 50 Ml Syringe IV 08/05/25 20:26 Q15MIN PRN BG <50 OR BG <70 & pt unresponsive Glucagon 1 mg 07/06/25 20:27 Glucagon Inj 1 Mg Vial IM Q15MIN PRN BG <70, and no IV access Heparin Sodium (Porcine) 5,000 unit 07/06/25 21:00 07/07/25 08:48 Heparin Sod Inj 5000 Unit/Ml Vial SC 07/20/25 20:59 5,000 unit Q12HR REKHA Administration Azithromycin 250 mg/ Sterile 252.5 mls @ 252.5 mls/hr 07/07/25 21:00 Water 2.5 ml/ Sodium Chloride IV 07/08/25 21:59 QDAY@2100 [facility] Insulin Human Lispro 0 unit 07/07/25 07:30 07/07/25 07:43 Insulin Lispro (Admelog) 1 Unit/0.01 Ml Unit SC 08/06/25 07:29 3 unit AC REKHA Administration Protocol Ondansetron HCl 4 mg 07/06/25 20:31 Ondansetron Inj 2 Mg/Ml Inj 2 Ml IVP 08/05/25 20:30 Q6H PRN NAUSEA OR VOMITING Protocol Pantoprazole Sodium 40 mg 07/07/25 09:00 07/07/25 08:47 Pantoprazole Inj 40 Mg Vial IVP 08/06/25 08:59 40 mg QDAY REKHA Administration Sennosides 1 tab 07/06/25 20:31 Senna Tablet PO 08/05/25 20:30 QDAY PRN constipation Protocol Plan Ella Cordova is a 79F with pmhx significant for HFrEF (20?25%) s/p ICD, paroxysmal Afib, COPD on 2 L home O2, CAD s/p stent on ASA and Brillinta 2023, NIDDM2, HTN, HLD, CKDIIIa and dementia presenting to [facility] ED on 07/06 with acute dyspnea and BLE edema, admitted for acute on chronic hypoxic respiratory failure likely 2/2 to CHF exacerbation and COPD exacerbation, found to have UTI, MICHEAL on CKDIIIa and mild transaminitis. #Acute on chronic hypoxic respiratory failure likely 2/2 #Acute CHF exacerbation #COPD exacerbation Patient uses 2L NC O2 at home, is compliant with Duoneb treatments QID, and reports not taking Lasix for the past week due to increased urination. Endorses chronic PND and orthopnea but presented with worsening SOB at rest requiring 6L O2 NC on admission and significant BLE edema R>L, later requiring BiPAP overnight for desaturations as low as 90%. BNP 971, trops neg. Likely multifactorial: volume overload with Lasix noncompliance superimposed on HFrEF possibly triggering COPD exacerbation as patient reports being compliant with home therapy. Given patient has no elevated WBC, has been afebrile, denies productive phlegm, and CXR does not indicate pneumonia, low concern for active infection and will discontinue azithromycin. CXR shows early heart failure. RLE US shows no DVT. s/p IV Lasix 80 mg x1, methylpred 125 mg x1, Duoneb x2, Azithromycin 500 mg x1 Plan: - Start IV Lasix 40 mg BID with net goal of - 2-3L over 24h - Duonebs q4h scheduled with q2h prn ordered - Start IV methylprednisolone 40 mg QD - Discontinue azithromycin - Strict I&Os, daily weights - 1.5L fluid restriction - Supplemental O2 as needed and keep SpO2 88-92% #MICHEAL on CKDIIIa #NAGMA, resolved #Hyperkalemia, resolved #Hyponatremia, resolved On admission creatinine 1.6 (BL 1.1-1.3), BUN 35 (BL 30-40), bicarb 18.1, ABG 7.4//, AG 12, lactic acid 2.0. MICHEAL likely prerenal, cardiorenal, 2/2 volume overload from Lasix noncompliance for the past week causing CHF exacerbation. Initial AG 12 with bicarb 18.1, repeat AG 17 bicarb 19.4. 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 Plan: - Diuresis as above - CTM Cr and renal panel, anticipate improvement of Cr as overload volume is removed - Consider urine lytes if MICHEAL does not improve following diuresis - Recheck and replete electrolytes as necessary #UTI, nonseptic Endorses increased urinary frequency with low volume output for the past three days. Admission UA shows 4+glucose, 2+ blood, +LE, +902 WBC, 4+ bacteria, +yeast Pat inserted 07/06. UCx not collected prior to abx administration. Plan: - Start ceftriaxone 1g (07/07- #Hx of ischemic and non-ischemic cardiomyopathy #HFrEF (20-25%) s/p ICD #CAD s/p stent (10/2024) #Severe PAD and claudication Has long-standing history of heart disease, both ischemic and non-ischemic, HFrEF EF of 20 to 25% status post ICD plantation, multiple defibrillator discharges in the past, known CAD status post stent in left circumflex artery in 10/2024. Patient is on DAPT aspirin and Brilinta. Patient takes amiodarone for atrial fibrillation, aspirin 81 mg daily and Brilinta 90 mg twice daily, Lasix 40 mg daily, metoprolol succinate 25 mg daily, and spironolactone 25 mg daily. Plan: - Hold home GDMT iso soft blood pressures - Plan to slowly resume GDMT as blood pressure tolerates - Amiodarone dose unclear whether 100 or 200, started cardiology discretion - Cardiology consulted, recs appreciated - Keep K>4 and Mg>2 #Atrial fibrillation, paroxysmal Patient has paroxysmal A-fib not on Eliquis. Currently not in A-fib. Plan: - Cardiology consulted, recs appreciated - Hold rate controlling agents as above #Transaminitis Admission ALT/AST 62/69, baseline 17/48 in 04/2025. Alk phos also elevated, but chronic. Denies any history of liver disease. Admission Tbili 2.4, previously 1.0 in 04/2025. Likely secondary to fluid overload causing hepatic congestion. Plan: - CTM LFTs - F/u liver US #NIDDM2 #Hyperglycemia Last HbA1c 7.5 in 03/2025. Glucose on admission 255. Patient also is receiving steroids, contributing to hyperglycemia. Plan: - Start basal 10 units qhs - SSI - CTM glucose #R rib pain #Chronic shoulder pain Reported 6 weeks ago, bruised R lateral ribs on chair, still currently tender on palpation. Received steroid injections in shoulders. Takes [place] 7.5/325 BID at home. Plan: - Start home [place] 7.5/325 BID - CTM pain #Microcytic Anemia Patient has a chronic history of anemia with hemoglobin in the nines earlier this year. Usually MCV is in the 80s however on admission MCV 77 and now 74. No active signs of bleeding, likely iron deficiency anemia. Plan: - F/u outpatient iron panel workup Hospital management: Lines: Pat, peripheral IV Diet: consistent carb low, 2g sodium, fluid restriction 1.5L Bowel: Senna GI prophylaxis: IV pantoprazole 40 mg DVT prophylaxis: heparin q12 Disposition: [facility] for management of CHF and COPD exacerbation CODE STATUS: Full code Plan of care discussed with attending Dr. Olguin, and PGY-2 Dr. Velasquez. Shabana Wesley, DO PGY-1 Internal Medicine
[2025-07-07 09:36] LABS: Lactate (Lactic Acid) 2.0 mMol/L (0.4-2.0)
[2025-07-07 09:47] LABS: Beta Hydroxybutyrate 1.6 mmol/L (<0.6)
[2025-07-07] MEDS: cefTRIAXone/D5w 1gm IV premix 1 GM/50 ML BAG IV (10:47)
[2025-07-07] MEDS: FUROSEMIDE INJ 10 MG/ML 4ML VIAL 40 MG IVP ×2 (10:48→17:55)
--- NOTE | 2025-07-07 11:08 | PC.SS ---
Follow up note: IV diuresis. On bipap.
[2025-07-07 11:30] LABS: Albumin, Serum 3.7 gm/dL (3.4-4.8); Anion Gap 15 (7-16); BUN/Creatinine Ratio 22 Ratio (12-20); Blood Urea Nitrogen 35 mg/dL (9-23); Calcium 9.7 mg/dL (8.3-10.6); Calcium (Corrected) 9.9 mg/dL (8.5-10.1); Carbon Dioxide 20.3 mMol/L (20.0-31.0); Chloride 101 mMol/L (98-107); Creatinine (Component) 1.6 mg/dL (0.6-1.3); Estimated Creatinine Clearance 25.0 mL/min (>60); Glucose 338 mg/dL (74-106); Osmolality,Calculated 292 (275-295); Phosphorous 3.9 mg/dL (2.4-5.1); Potassium 3.6 mMol/L (3.4-5.1); Sodium 136 mMol/L (136-145); eGFR 33 See Note
[2025-07-07] MEDS: ASPIRIN 81 MG CHEW PO (15:46)
--- NOTE | 2025-07-07 18:05 | XR_ITS ---
Examination: Abdomen sonogram, Limited Date and time of exam: July 07, 2025, 1843 hours INDICATIONS: Elevated liver function tests on laboratory examination today. Technique: Real-time sullivan scale transabdominal sonographic images of the upper abdomen obtained. Findings: Contracted gallbladder Multiple gallstones Gallbladder wall 0.40 cm no edema Common bile duct 0.3 cm Pancreatic head 2.3 cm Liver 14.9 cm, I do not visualize definite lesion Normal hepatopedal portal venous flow Patent IVC IMPRESSION: Cholelithiasis Borderline thickening gallbladder wall 0.40 cm, clinical correlation is advised, consider HIDA scan follow-up as clinically warranted.
--- NOTE | 2025-07-07 20:17 | ESCONSULT_ITS ---
<Statement entered by Veronica Pitts MD - 07/11/25 18:54> I personally evaluated and examined this patient who is very well-known to me for several years alongside history of ischemic cardiomyopathy chronic systolic heart failure EF less than 30% admitted for acute decompensated heart failure she was not compliant with medications will do aggressive IV diuretic therapy as she is responding well. Provided the patient with resident physician PGY 1 Dr. Kevin Wood agree with the treatment plan recommendation as documented. HPI Data of Consult Requesting Physician: Rd Encarnacion MD Admitting Provider: Rd Encarnacion MD Attending Provider: Rd Encarnacion MD Primary Care Provider: Nancy Obando NP Consult Narrative History of present illness: 79-year-old female with a PMH of hypertension, HFrEF, left ventricular dysfunction with implanted defibrillator, COPD, CAD, hyperlipidemia, and dementia who presented to the ED on 07/06/2025 after 3 to 4 days of gradually worsening shortness of breath. The patient is on 2 L nasal cannula at baseline and maintains saturations above 92%. The patient has not had chest pain, pressure, palpitations, dizziness or syncope. The patient did report bilateral lower extremity swelling and right lower quadrant abdominal pain. She was brought to the ED on 6 L nasal cannula. Cardiac auscultation had a regular rate and rhythm. She had bibasilar Rales in the ED on arrival. Pat catheter was placed. The patient is well-known to Dr. Pitts. Cardiology was consulted for management of the patient's heart failure. ED course: Patient received IV furosemide, DuoNebs, IV methylprednisolone, azithromycin 500 mg once with a plan for to 50 mg daily for 2 days for COPD exacerbation, she was started on BiPAP, and a Pat catheter was placed. Troponins were negative. The patient had a brief anion gap elevation that normalized. History: Medical history: Hypertension, type 2 diabetes, CHF, moderate left ventricular dysfunction with implantable cardiac defibrillator, recurrent V-fib, COPD on 2 L home oxygen, CAD, hyperlipidemia, dementia, anxiety and depression, osteoarthritis Surgical history: Hysterectomy, automatic implantable cardiac defibrillator implantation, pacemaker change out 04/2024, right leg angiogram 07/2024, angiogram 10/2024, hip surgery 10/2024, previous ear surgery, tonsillectomy, hysterectomy. Family history: Father had diabetes Social history: Former smoker, no alcohol or illicit drug use, lives at home with caregiver nurse certified anesthesiologist assistant Allergies: Penicillin, sulfur Home medications per review of patient's chart from glass grinder Dr. Pitts: Farxiga 10 mg daily Metformin 500 mg twice daily Stiolto Respimat 2.52.5 2 puffs once daily Magnesium 400 mg once daily Hydrocodone acetaminophen 7.5-325 mg tablet oral as needed Donepezil HCl 10 mg Furosemide 40 mg Pantoprazole 40 mg Amiodarone 100 mg Vitamin C Lorazepam 0.5 mg at bedtime as needed Brilinta 90 mg twice daily Bumetanide 2 mg daily Entresto twice daily Metoprolol 25 mg ER daily Doxycycline 100 mg daily Eliquis 5 mg daily Spironolactone 25 mg once daily cc:: cc: Rd Encarnacion MD Review of Systems Review of Systems Narrative Review of Systems: Review of Systems: -General: Denies fevers, chills. - HEENT: Denies headache, congestion, or sore throat. -Cardiac: Occasional palpitations. -Pulmonary: Occasional shortness of breath. -GI: Denies nausea, vomiting, diarrhea, constipation, melena, or hematochezia. -: Denies dysuria, hematuria, frequency, or urgency. -MSK: Denies pain in the extremities, joints, or myalgias. -Neuro: Denies weakness, numbness, vision changes, or speech difficulty. Exam Vital Signs Temp Pulse Resp BP Pulse Ox O2 Del Method O2 Flow Rate 97.0 F 80 16 131/62 H 94 L Nasal Cannula 2 07/07/25 16:00 07/07/25 18:43 07/07/25 18:43 07/07/25 17:55 07/07/25 18:43 07/07/25 16:00 07/07/25 18:43 FiO2 30 07/07/25 06:14 Narrative Exam General: Frail thin elderly lady. Awake and in no acute distress. Conversational and non-toxic appearing. Neurologic: GCS 15. Alert and oriented x3, no gross neurological deficit, and patient able to move all 4 extremities. HEENT: Normocephalic, atraumatic, mucous membranes moist. Pupils reactive to light. Heart: Grade 2 out of 6 systolic ejection murmur regular rate. Lungs: Clear to auscultation bilaterally with no wheezing or crackles. Abdomen: Seborrheic keratoses. Soft, nondistended, nontender,. Extremities: Bright red lower extremities. Skin: Seborrheic keratoses on abdomen. Warm. Dry. No rash or ecchymoses. Results Labs 07/07/25 05:46 07/07/25 09:27 Labs: Short CBC 07/07/25 Range/Units 05:46 WBC 6.1 (3.6-11.0) Thou/mm3 Hgb 9.3 L (12.0-16.0) g/dL Hct 30.7 L (36.0-46.0) % Plt Count 375 D (140-440) Thou/mm3 BMP 07/07/25 07/07/25 05:46 09:27 Sodium 137 136 Potassium 3.8 D 3.6 Chloride 101 101 Carbon Dioxide 19.4 L 20.3 BUN 36 H 35 H Creatinine 1.6 H 1.6 H Glucose 267 H 338 H D Calcium 9.1 9.7 Liver Function 07/07/25 07/07/25 Range/Units 05:46 09:27 Total Bilirubin 2.0 H (0.3-1.2) mg/dL AST 55 H (0-34) U/L ALT 74 H (10-49) U/L Alkaline Phosphatase 308 H (46-116) U/L Albumin 3.8 3.7 (3.4-4.8) gm/dL Urine 07/06/25 Range/Units 19:53 Urine Color Yellow (Lt Yel-Yel) Urine Clarity Cloudy A (Clear/Hazy) Urine pH 6.0 (5.0-7.0) Ur Specific [place] 1.006 (1.001-1.035) Urine Protein Trace (Neg - Trace) Urine Glucose (UA) 4+ A (Negative) ABG Interpretation ABG results: 07/06/25 07/07/25 17:05 04:47 ABG pH 7.37 7.40 ABG pCO2 28 L 30 L ABG pO2 94 98 ABG HCO3 16 L 19 L ABG O2 Saturation 98 99 H ABG Base Excess -8 L -5 L Quality Measures Quality Measures VTE prophylaxis and none Advance care planning discussed with:: patient Medications Home Medications and Allergies Home Medications ?Medication ?Instructions ?Recorded ?Confirmed ?Type donepezil 10 mg tablet 10 mg PO QPM 09/05/21 History metoprolol succinate 25 mg 25 mg PO QDAY 02/27/2406/25 History tablet,extended release 24 hr spironolactone 25 mg tablet 25 mg PO QDAY 10/26/2411/18 History amiodarone 100 mg tablet 100 mg PO DAILY Atrial fibri lation 05/04/25 07/06/25 History furosemide 40 mg tablet 40 mg PO DAILY Heart failure 05/04/25 07/06/25 History dapagliflozin propanediol 10 mg 10 mg PO QDAY 05/05/25 07/06/25 History tablet Allergies Allergy/AdvReac Type Severity Reaction Status Date / Time Penicillins Allergy Severe UNKNOWN Verified 06/14/25 13:23 Sulfa (Sulfonamide Allergy Severe Swelling Verified 06/14/25 13:23 Antibiotics) Visit Medications Acetaminophen (Acetaminophen 325 Mg Tablet) 650 mg PO Q6H PRN PRN Reason: Fever >100.4 Stop: 08/05/25 20:30 Acetaminophen (Acetaminophen Supp 650 Mg Supp) [address] Q6H PRN PRN Reason: PAIN Stop: 08/05/25 20:30 Hydrocodone Bitart/Acetaminophen (Hydrocodone/Apap 7.5/325 Tablet) 1 tab PO BID PRN PRN Reason: pain 4-10 Stop: 07/12/25 15:08 Albuterol/Ipratropium (Albuterol/Ipratropium (Duoneb) Rt Renay 3 Ml Nebu) 3 ml INH Q4HRRT [facility] Stop: 08/05/25 22:59 Last Admin: 07/07/25 18:29 Dose: 3 ml Albuterol/Ipratropium (Albuterol/Ipratropium (Duoneb) Rt Renay 3 Ml Nebu) 3 ml INH Q2HR PRN PRN Reason: SHORTNESS OF BREATH OR WHEEZE Stop: 08/06/25 10:27 Aspirin (Aspirin 81 Mg Chew) 81 mg PO QDAY [facility] Stop: 08/06/25 15:14 Last Admin: 07/07/25 15:46 Dose: 81 mg Dextrose (Dextrose 50%-Water Inj 50 Ml Syringe) 25 ml IV Q15MIN PRN PRN Reason: BG 50-70 responsive npo pt Stop: 08/05/25 20:26 Dextrose (Dextrose 50%-Water Inj 50 Ml Syringe) 50 ml IV Q15MIN PRN PRN Reason: BG <50 OR BG <70 & pt unresponsive Stop: 08/05/25 20:26 Donepezil HCl (Donepezil Hcl 5 Mg Tablet) 10 mg PO QPM [facility] Stop: 08/06/25 20:59 Furosemide (Furosemide Inj 10 Mg/Ml 4ml Vial) 40 mg IVP BIDD [facility] Stop: 08/06/25 10:29 Last Admin: 07/07/25 17:55 Dose: 40 mg Glucagon (Glucagon Inj 1 Mg Vial) 1 mg IM Q15MIN PRN PRN Reason: BG <70, and no IV access Heparin Sodium (Porcine) (Heparin Sod Inj 5000 Unit/Ml Vial) 5,000 unit SC Q12HR [facility] Stop: 07/20/25 20:59 Last Admin: 07/07/25 08:48 Dose: 5,000 unit Ceftriaxone Sodium/Dextrose (Rocephin/D5w 1gm Iv Premix) 1 gm in 50 mls @ 100 mls/hr IV QDAY [facility] Stop: 07/14/25 10:27 Last Infusion: 07/07/25 11:17 Dose: Infused Insulin Degludec (Insulin Degludec 5 Unit/0.05 Ml (Per 5 Units)) 10 unit SC HS [facility] Stop: 08/06/25 20:59 Insulin Human Lispro (Insulin Lispro (Admelog) 1 Unit/0.01 Ml Unit) 0 unit SC AC [facility]; Protocol Stop: 08/06/25 11:29 Last Admin: 07/07/25 17:53 Dose: 6 unit Methylprednisolone Sodium Succinate (Methylprednisolone Sod Succ 40 Mg Vial) 40 mg IVP QDAY [facility] Stop: 07/14/25 10:29 Last Admin: 07/07/25 10:47 Dose: 40 mg Ondansetron HCl (Ondansetron Inj 2 Mg/Ml Inj 2 Ml) 4 mg IVP Q6H PRN; Protocol PRN Reason: NAUSEA OR VOMITING Stop: 08/05/25 20:30 Pantoprazole Sodium (Pantoprazole Inj 40 Mg Vial) 40 mg IVP QDAY [facility] Stop: 08/06/25 08:59 Last Admin: 07/07/25 08:47 Dose: 40 mg Sennosides (Senna Tablet) 1 tab PO QDAY PRN; Protocol PRN Reason: constipation Stop: 08/05/25 20:30 Ticagrelor (Ticagrelor 90 Mg Tablet) 90 mg PO BID REKHA Stop: 08/06/25 20:59 Discontinued Medications Albuterol (Albuterol Rt 2.5 Mg/3 Ml Nebu) 5 mg INH X1 ONE Stop: 07/06/25 16:55 Last Admin: 07/06/25 17:08 Dose: 5 mg Furosemide (Furosemide Inj 10 Mg/Ml 4ml Vial) 80 mg IVP X1 ONE Stop: 07/06/25 16:53 Last Admin: 07/06/25 17:49 Dose: 80 mg Azithromycin 500 mg/ Sodium (Chloride) 250 mls @ 250 mls/hr IV X1 ONE Stop: 07/06/25 21:24 Last Infusion: 07/06/25 22:21 Dose: Infused Azithromycin 250 mg/ Sterile (Water 2.5 ml/ Sodium Chloride) 252.5 mls @ 252.5 mls/hr IV QDAY@2100 REKHA Stop: 07/08/25 21:59 Insulin Degludec (Insulin Degludec 5 Unit/0.05 Ml (Per 5 Units)) 10 unit SC [facility] Stop: 08/06/25 20:59 Insulin Human Lispro (Insulin Lispro (Admelog) 1 Unit/0.01 Ml Unit) 0 unit SC AC [facility]; Protocol Stop: 08/06/25 07:29 Last Admin: 07/07/25 07:43 Dose: 3 unit Ipratropium [place] (Ipratropium Rt 0.5 Mg/ 2.5 Ml Nebu) 0.5 mg INH X1 ONE Stop: 07/06/25 16:55 Last Admin: 07/06/25 17:08 Dose: 0.5 mg Methylprednisolone Sodium Succinate (Methylprednisolone Sod Succ 40 Mg Vial) 125 mg IVP X1 ONE Stop: 07/06/25 20:28 Methylprednisolone Sodium Succinate (Methylprednisolone Sod Succ 62.5 Mg/Ml 2ml Vial) 125 mg IVP X1 ONE Stop: 07/06/25 20:45 Last Admin: 07/06/25 20:49 Dose: 125 mg Assessment & Plan Plan 79-year-old female with a past medical history of hypertension, type 2 diabetes, congestive heart failure, left ventricular dysfunction with implantable cardiac defibrillator, and recurrent V-fib who presented to the ED on 07/06/2025 with worsening shortness of breath. Cardiology was consulted for management of the patient's CHF. #CHF #HFrEF #Peripheral vascular disease with claudication #Presence of drug-coated stent in the left circumflex coronary artery #Implanted cardiac defibrillator - Patient has an ejection fraction of 30% - The patient's ankle brachial index is 0.69 on both sides, suggestive of peripheral artery disease - Patient had 90% stenosis of the left circumflex artery - BNP 971 on this hospital admission - In November 2024, the patient underwent several shocks delivered by her implanted defibrillator, and went to [facility] where she was observed for a few days - Patient would benefit from diuresis Plan: - Patient is on aspirin and Brilinta dual antiplatelet therapy, continue - Start Bumex 2 mg twice daily - Strict ins and outs, monitor urine output #Acute on chronic hypoxic respiratory failure #COPD exacerbation #MICHEAL #Hyperkalemia #Transaminitis #Anemia #Right lower quadrant abdominal pain #DVT/PE rule out The rest of the patient's hospital problems will be managed per the primary team. Patient was seen and discussed with my attending physician Dr. Pitts. Kevin Wood DO PGY-1.
[2025-07-07] MEDS: INSULIN DEGLUDEC 5 UNIT/0.05 ML (PER 5 UNITS) 10 UNIT SC (21:32)
[2025-07-07] MEDS: TICAGRELOR 90 MG TABLET PO (21:35)
[2025-07-07] MEDS: DONEPEZIL HCL 5 MG TABLET 10 MG PO (21:35)
[2025-07-08] VITALS (14 sets, daily range): BP systolic 74–127; BP diastolic 50–79; PULSE 64–110; RESP 14–25; TEMP 36.1–36.6; O2SAT 94–100
[2025-07-08 05:41] LABS: Basophils # (Auto) 0.0 Thou/mm3 (0.0-0.2); Basophils % (Auto) 0 % (0-2.5); Eosinophils # (Auto) 0.0 Thou/mm3 (0.0-0.5); Eosinophils % (Auto) 0 % (0-10); Hematocrit 29.4 % (36.0-46.0); Hemoglobin 9.2 g/dL (12.0-16.0); Immature Granulocytes Auto 0.12 Thou/mm3 (0.00-0.00); Lymphocytes # (Auto) 0.3 Thou/mm3 (1.0-4.8); Lymphocytes % (Auto) 2 % (10-50); Mean Corpuscular HGB Conc 31.3 g/dl (31.0-37.0); Mean Corpuscular Hemoglobin 22.8 pg (25.0-35.0); Mean Corpuscular Volume 73 fL (80-100); Monocytes # (Auto) 0.8 Thou/mm3 (0.0-0.8); Monocytes % (Auto) 7 % (0-12); Neutrophils # (Auto) 10.1 Thou/mm3 (1.8-7.7); Neutrophils % (Auto) 90 % (37-80); Nucleated Red Blood Cell # 0.09 Thou/mm3 (0.00-0.00); Nucleated Red Blood Cell % 1 /100 WBC (0); Platelet Count 420 Thou/mm3 (140-440); RDW Standard Deviation 49.3 fL (36.4-46.3); Red Blood Count 4.03 Miln/mm3 (4.00-5.20); White Blood Count 11.2 Thou/mm3 (3.6-11.0)
[2025-07-08] MEDS: ACETAMINOPHEN 325 MG TABLET 650 MG PO (05:50)
[2025-07-08] MEDS: FUROSEMIDE INJ 10 MG/ML 4ML VIAL 40 MG IVP (05:50)
[2025-07-08] MEDS: ALBUTEROL/IPRATROPIUM (Duoneb) RT SOL 3 ML NEBU INH ×5 (05:55→23:48)
[2025-07-08 06:17] LABS: Alanine Aminotransferase 59 U/L (10-49); Albumin, Serum 4.1 gm/dL (3.4-4.8); Albumin/Globulin Ratio 2.2 (1.2-2.2); Alkaline Phosphatase 262 U/L (46-116); Anion Gap 15 (7-16); Aspartate Amino Transferase 30 U/L (0-34); BUN/Creatinine Ratio 23 Ratio (12-20); Bilirubin,Total 1.7 mg/dL (0.3-1.2); Blood Urea Nitrogen 34 mg/dL (9-23); Calcium 9.5 mg/dL (8.3-10.6); Calcium (Corrected) 9.5 mg/dL (8.5-10.1); Carbon Dioxide 25.7 mMol/L (20.0-31.0); Chloride 97 mMol/L (98-107); Creatinine (Component) 1.5 mg/dL (0.6-1.3); Estimated Creatinine Clearance 26.7 mL/min (>60); Globulin 1.9 gm/dL (2.3-3.5); Glucose 298 mg/dL (74-106); Magnesium 1.9 mg/dL (1.6-2.6); Osmolality,Calculated 294 (275-295); Phosphorous 3.2 mg/dL (2.4-5.1); Potassium 2.9 mMol/L (3.4-5.1); Sodium 138 mMol/L (136-145); Total Protein 6.0 gm/dL (5.7-8.2); eGFR 35 See Note
[2025-07-08] MEDS: INSULIN LISPRO (AdmeLOG) 1 UNIT/0.01 ML UNIT SC ×3 (07:40→16:32)
[2025-07-08] MEDS: ASPIRIN 81 MG CHEW PO (08:38)
[2025-07-08] MEDS: HEPARIN SOD INJ 5000 UNIT/ML VIAL SC ×2 (08:38→20:24)
[2025-07-08] MEDS: cefTRIAXone/D5w 1gm IV premix 1 GM/50 ML BAG IV (08:39)
[2025-07-08] MEDS: TICAGRELOR 90 MG TABLET PO ×2 (08:39→20:24)
[2025-07-08] MEDS: POTASSIUM CHL 10 mEq IVPB 10 MEQ/100 ML BAG 70 MEQ IV (09:17)
[2025-07-08] MEDS: Magnesium Sulfate 2 GM Ivpb 2 GM/50 ML BAG IV (09:30)
[2025-07-08] MEDS: POTASSIUM CHLORIDE 10% 20 MEQ/15 ML UDC 40 MEQ PO (09:30)
--- NOTE | 2025-07-08 10:35 | EKG_ITS ---
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
[2025-07-08] MEDS: POTASSIUM CHL 10 mEq IVPB 10 MEQ/100 ML BAG 100 MEQ IV (11:41)
[2025-07-08] MEDS: INSULIN LISPRO (AdmeLOG) 1 UNIT/0.01 ML UNIT 4 UNIT SC ×2 (11:45→16:32)
[2025-07-08] MEDS: POTASSIUM CHL 10 mEq IVPB 10 MEQ/100 ML BAG 50 MEQ IV ×2 (13:38→15:37)
[2025-07-08 13:43] LABS: Albumin, Serum 4.2 gm/dL (3.4-4.8); Anion Gap 14 (7-16); BUN/Creatinine Ratio 24 Ratio (12-20); Blood Urea Nitrogen 36 mg/dL (9-23); Calcium 9.7 mg/dL (8.3-10.6); Calcium (Corrected) 9.7 mg/dL (8.5-10.1); Carbon Dioxide 27.9 mMol/L (20.0-31.0); Chloride 96 mMol/L (98-107); Creatinine (Component) 1.5 mg/dL (0.6-1.3); Estimated Creatinine Clearance 26.7 mL/min (>60); Glucose 257 mg/dL (74-106); Osmolality,Calculated 292 (275-295); Phosphorous 2.9 mg/dL (2.4-5.1); Potassium 5.2 mMol/L (3.4-5.1); Sodium 138 mMol/L (136-145); eGFR 35 See Note
--- NOTE | 2025-07-08 13:45 | ESPR_ITS ---
<Statement entered by Daksha Olguin MD - 07/23/25 15:04> I reviewed above note and agree with findings and plans. I have also personally examined the patient with medicine team and went over assessment and plan with medical team including environmental health and safety intern and resident physician. <Statement entered by Daphne Velasquez MD - 07/09/25 07:38> Pt is seen at bedside, currently feel very tired because she was unable to sleep most night due to disturbance. Otherwise pt feels much better, is curretnly on her home O2 level of 2L via nasal cannula, denies SOB, orthpnea. Will switch IV lasix to Bumex 1mg oral daily and discontinue IV steroids and will continue breathing treatments as needed. Pt's blood glucose is elevated therefore will start pt on lantus 15 units with lispro 4 units TID. Patient was seen and examined by me personally. I have directly supervised and reviewed documentation by the team resident and agree with its findings. ------- Plan of care was discussed with the attending, Dr. Sharfi Velasquez, PGY-2 Documentation for date of: 07/08/25 Subjective Subjective Interval history: No acute overnight events. Patient seen and examined at bedside. States that breathing is better. Denies chest pain, abdominal pain, fever or urinary symptoms. Endorse that last night nurse had issues with peripheral line and was very painful. Has Pat catheter in with good output. AM potassium 2.9, repleted with 40 mill equivalents of potassium. Magnesium 1.9. Repleted 2 g of magnesium. AST ALT downtrending 30/59. Saturating 94% on 2 L which is home baseline. Glucose has been ranging in the 200s to high 300s. Patient was started on insulin lispro 4 units during meals. Considering to increase basal insulin from 10 to 15 units. Per cardiology discontinue Lasix and start IV Bumex 2 mg daily. For COPD exacerbation, steroids discontinued, continue DuoNebs. Exam Vital Signs Temp Pulse Resp BP Pulse Ox O2 Del Method O2 Flow Rate 97.6 F 64 17 122/66 97 Nasal Cannula 2 07/08/25 12:00 07/08/25 12:00 07/08/25 12:07/08/25 12:00 07/08/25 12:00 07/08/25 12:07/08/25 12:00 FiO2 30 07/07/25 06:14 Narrative Exam GENERAL: AOx3, no acute distress HEENT: NC/AT, mucous membranes moist, bilateral sclera anicteric CARDIOVASCULAR: regular rate and rhythm, S1/S2 present, no murmurs appreciated PULMONARY: +mild b/l wheezes + mild crackles b/l at bases ABDOMINAL: soft, non-tender, non-distended, no rebound/guarding, bowel sounds present EXTREMITIES: no edema at shins, trace edema at hips SKIN: warm and dry, intact, no rashes NEURO: CN II-XII grossly intact, no focal deficits, alert, following commands Objective Labs 07/08/25 04:18 07/08/25 04:18 Labs: Laboratory Results - last 24 hr 07/08/25 04:18 WBC 11.2 H D RBC 4.03 Hgb 9.2 L Hct 29.4 L MCV 73 L MCH 22.8 L MCHC 31.3 RDW Std Deviation 49.3 H Plt Count 420 D Neut % (Auto) 90 H Lymph % (Auto) 2 L [place] % (Auto) 7 Eos % (Auto) 0 Baso % (Auto) 0 Neut # (Auto) 10.1 H Lymph # (Auto) 0.3 L [place] # (Auto) 0.8 Eos # (Auto) 0.0 Baso # (Auto) 0.0 Immature Gran # (Auto) 0.12 H Absolute Nucleated RBC 0.09 H Immature Gran % 1 H Nucleated RBC % 1 H Sodium 138 Potassium 2.9 L D Chloride 97 L Carbon Dioxide 25.7 Anion Gap 15 BUN 34 H Creatinine 1.5 H Estim Creat Clear Calc 26.7 L eGFR 35 L BUN/Creatinine Ratio 23 H Glucose 298 H Calculated Osmolality 294 Calcium 9.5 Corrected Calcium 9.5 Phosphorus 3.2 Magnesium 1.9 Total Bilirubin 1.7 H AST 30 ALT 59 H Alkaline Phosphatase 262 H D Total Protein 6.0 Albumin 4.1 Globulin 1.9 L Albumin/Globulin Ratio 2.2 ABG Interpretation ABG results: 07/06/25 07/07/25 17:05 04:47 ABG pH 7.37 7.40 ABG pCO2 28 L 30 L ABG pO2 94 98 ABG HCO3 16 L 19 L ABG O2 Saturation 98 99 H ABG Base Excess -8 L -5 L Quality Measures Quality Measures VTE prophylaxis and none Advance care planning discussed with:: patient Assessment & Plan Assessment Current Active Medications: Generic Name Dose Route Start Last Admin Trade Name Freq PRN Reason Stop Dose Admin Acetaminophen 650 mg 07/06/25 20:31 07/08/25 05:50 Acetaminophen 325 Mg Tablet PO 08/05/25 20:30 650 mg Q6H PRN Administration Fever >100.4 Acetaminophen 650 mg 07/06/25 20:31 Acetaminophen Supp 650 Mg Supp [place] 08/05/25 20:30 Q6H PRN PAIN Hydrocodone Bitart/Acetaminophen 1 tab 07/07/25 15:09 Hydrocodone/Apap 7.5/325 Tablet PO 07/12/25 15:08 BID PRN pain 4-10 Albuterol/Ipratropium 3 ml 07/06/25 23:00 07/08/25 10:58 Albuterol/Ipratropium (Duoneb) Rt Renay 3 Ml Nebu INH 08/05/25 22:59 3 ml Q4HRRT REKHA Administration Albuterol/Ipratropium 3 ml 07/07/25 10:28 Albuterol/Ipratropium (Duoneb) Rt Renay 3 Ml Nebu INH 08/06/25 10:27 Q2HR PRN SHORTNESS OF BREATH OR WHEEZE Aspirin 81 mg 07/07/25 15:15 07/08/25 08:38 Aspirin 81 Mg Chew PO 08/06/25 15:14 81 mg QDAY REKHA Administration Bumetanide 2 mg 07/08/25 18:00 Bumetanide Inj 0.25 Mg/Ml Vial 4 Ml IVP 08/07/25 17:59 BID REKHA Dextrose 25 ml 07/06/25 20:27 Dextrose 50%-Water Inj 50 Ml Syringe IV 08/05/25 20:26 Q15MIN PRN BG 50-70 responsive npo pt Dextrose 50 ml 07/06/25 20:27 Dextrose 50%-Water Inj 50 Ml Syringe IV 08/05/25 20:26 Q15MIN PRN BG <50 OR BG <70 & pt unresponsive Donepezil HCl 10 mg 07/07/25 21:00 07/07/25 21:35 Donepezil Hcl 5 Mg Tablet PO 08/06/25 20:59 10 mg QPM REKHA Administration Glucagon 1 mg 07/06/25 20:27 Glucagon Inj 1 Mg Vial IM Q15MIN PRN BG <70, and no IV access Heparin Sodium (Porcine) 5,000 unit 07/06/25 21:00 07/08/25 08:38 Heparin Sod Inj 5000 Unit/Ml Vial SC 07/20/25 20:59 5,000 unit Q12HR REKHA Administration Ceftriaxone Sodium/Dextrose 1 gm in 50 mls @ 100 mls/hr 07/07/25 10:28 07/08/25 08:39 Rocephin/D5w 1gm Iv Premix IV 07/14/25 10:27 100 mls/hr QDAY REKHA Administration Insulin Degludec 10 unit 07/07/25 21:00 07/07/25 21:32 Insulin Degludec 5 Unit/0.05 Ml (Per 5 Units) SC 08/06/25 20:59 10 unit HS REKHA Administration Insulin Human Lispro 0 unit 07/07/25 11:30 07/08/25 11:45 Insulin Lispro (Admelog) 1 Unit/0.01 Ml Unit SC 08/06/25 11:29 5 unit AC REKHA Administration Protocol Insulin Human Lispro 4 unit 07/08/25 11:30 07/08/25 11:45 Insulin Lispro (Admelog) 1 Unit/0.01 Ml Unit SC 08/07/25 11:29 4 unit AC REKHA Administration Ondansetron HCl 4 mg 07/06/25 20:31 Ondansetron Inj 2 Mg/Ml Inj 2 Ml IVP 08/05/25 20:30 Q6H PRN NAUSEA OR VOMITING Protocol Pantoprazole Sodium 40 mg 07/07/25 09:00 07/08/25 08:38 Pantoprazole Inj 40 Mg Vial IVP 08/06/25 08:59 40 mg QDAY REKHA Administration Sennosides 1 tab 07/06/25 20:31 Senna Tablet PO 08/05/25 20:30 QDAY PRN constipation Protocol Ticagrelor 90 mg 07/07/25 21:00 07/08/25 08:39 Ticagrelor 90 Mg Tablet PO 08/06/25 20:59 90 mg BID REKHA Administration Plan Ella Cordova is a 79F with pmhx significant for HFrEF (20?25%) s/p ICD, paroxysmal Afib, COPD on 2 L home O2, CAD s/p stent on ASA and Brillinta 2023, NIDDM2, HTN, HLD, CKDIIIa and dementia presenting to [facility] ED on 07/06 with acute dyspnea and BLE edema, admitted for acute on chronic hypoxic respiratory failure likely 2/2 to CHF exacerbation and COPD exacerbation, found to have UTI, MICHEAL on CKDIIIa and mild transaminitis. #Acute on chronic hypoxic respiratory failure likely 2/2 #Acute CHF exacerbation #COPD exacerbation Patient uses 2L NC O2 at home, is compliant with Duoneb treatments QID, and reports not taking Lasix for the past week due to increased urination. Endorses chronic PND and orthopnea but presented with worsening SOB at rest requiring 6L O2 NC on admission and significant BLE edema R>L, later requiring BiPAP overnight for desaturations as low as 90%. BNP 971, trops neg. Likely multifactorial: volume overload with Lasix noncompliance superimposed on HFrEF possibly triggering COPD exacerbation as patient reports being compliant with home therapy. Given patient has no elevated WBC, has been afebrile, denies productive phlegm, and CXR does not indicate pneumonia, low concern for active infection and will discontinue azithromycin. CXR shows early heart failure. RLE US shows no DVT. s/p IV Lasix 80 mg x1, methylpred 125 mg x1, Duoneb x2, Azithromycin 500 mg x1 Plan: - Switch from IV Lasix 40 mg BID to IV Bumex 2 mg QD - Duonebs q4h scheduled with q2h prn ordered - Stop IV methylprednisolone 40 mg QD - Strict I&Os, daily weights - 1.5L fluid restriction - Supplemental O2 as needed and keep SpO2 88-92% #MICHEAL on CKDIIIa, resolved #Hypokalemia #NAGMA, resolved #Hyperkalemia, resolved #Hyponatremia, resolved On admission creatinine 1.6 (BL 1.1-1.3), BUN 35 (BL 30-40), bicarb 18.1, ABG 7.4///19, AG 12, lactic acid 2.0. MICHEAL likely prerenal, cardiorenal, 2/2 volume overload from Lasix noncompliance for the past week causing CHF exacerbation. Initial AG 12 with bicarb 18.1, repeat AG 17 bicarb 19.4. 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 Following first day of diuresis, patient's a.m. potassium 2.9 likely secondary to aggressive diuresis. Plan: - Diuresis as above - CTM Cr and renal panel, anticipate improvement of Cr as overload volume is removed - Consider urine lytes if MICHEAL does not improve following diuresis - Recheck and replete electrolytes as necessary: 80 mEq of K repleted - F/u repeat afternoon renal panel #UTI, nonseptic Endorses increased urinary frequency with low volume output for the past three days. Admission UA shows 4+glucose, 2+ blood, +LE, +902 WBC, 4+ bacteria, +yeast Pat inserted 07/06. UCx not collected prior to abx administration. Plan: - Ceftriaxone 1g (07/07- #Hx of ischemic and non-ischemic cardiomyopathy #HFrEF (20-25%) s/p ICD #CAD s/p stent (10/2024) #Severe PAD and claudication Has long-standing history of heart disease, both ischemic and non-ischemic, HFrEF EF of 20 to 25% status post ICD plantation, multiple defibrillator discharges in the past, known CAD status post stent in left circumflex artery in 10/2024. Patient is on DAPT aspirin and Brilinta. Patient takes amiodarone for atrial fibrillation, aspirin 81 mg daily and Brilinta 90 mg twice daily, Lasix 40 mg daily, metoprolol succinate 25 mg daily, and spironolactone 25 mg daily. Plan: - Hold home GDMT iso soft blood pressures - Plan to slowly resume GDMT as blood pressure tolerates - Amiodarone dose unclear whether 100 or 200, started cardiology discretion - Cardiology consulted, recs appreciated - Keep K>4 and Mg>2 #Atrial fibrillation, paroxysmal Patient has paroxysmal A-fib not on Eliquis. Telemetry showed paced rhythm with some unpaced beats. Plan: - Cardiology consulted, recs appreciated - Hold rate controlling agents as above #Transaminitis, improvig Admission ALT/AST 62/69, baseline 17/48 in 04/2025. Alk phos also elevated, but chronic. Denies any history of liver disease. Admission Tbili 2.4, previously 1.0 in 04/2025. Likely secondary to fluid overload causing hepatic congestion. Liver ultrasound showed borderline gallbladder wall thickening 0.4 cm and gallstones. Plan: - CTM LFTs #NIDDM2 #Hyperglycemia Last HbA1c 7.5 in 03/2025. Glucose on admission 255. Patient also is receiving steroids, contributing to hyperglycemia. Plan: - Basal 10 units qhs consider increasing to 15 units - Started Lispro 4 units ac - SSI - CTM glucose #R rib pain #Chronic shoulder pain Reported 6 weeks ago, bruised R lateral ribs on chair, still currently tender on palpation. Received steroid injections in shoulders. Takes Roby 7.5/325 BID at home. Plan: - Home Roby 7.5/325 BID - CTM pain #Microcytic Anemia Patient has a chronic history of anemia with hemoglobin in the nines earlier this year. Usually MCV is in the 80s however on admission MCV 77 and now 74. No active signs of bleeding, likely iron deficiency anemia. Plan: - F/u outpatient iron panel workup Hospital management: Lines: Pat, peripheral IV Diet: consistent carb low, 2g sodium, fluid restriction 1.5L Bowel: Senna GI prophylaxis: IV pantoprazole 40 mg DVT prophylaxis: heparin q12 [facility] and [facility] exacerbation CODE STATUS: Full code Plan of care discussed with attending Dr. Olguin, and PGY-2 Dr. Velasquez. Shabana Wesley, DO PGY-1 Internal Medicine
[2025-07-08] MEDS: BUMETANIDE 0.5 MG TABLET 1 MG PO (17:58)
--- NOTE | 2025-07-08 19:55 | ESPR_ITS ---
<Statement entered by Veronica Pitts MD - 07/11/25 18:55> I personally examined this patient telemetry floor she is a lot better now she diuresed very well responded well to diuretic therapy clinically improved significantly feeling a lot better does not complain of shortness of breath chest pain orthopnea PND and will continue the diuretic therapy monitor electrolytes closely. 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 Patient was well diuresed with a net -4.2 L balance and became hypokalemic and hypomagnesemic, which was replenished by the primary team. Will reduce diuretic dose. Exam Vital Signs Temp Pulse Resp BP Pulse Ox O2 Del Method O2 Flow Rate 97.0 F 86 22 H 74/63 L 100 Nasal Cannula 2 07/08/25 19:42 07/08/25 19:42 07/08/25 19:42 07/08/25 19:42 07/08/25 19:42 07/08/25 19:42 07/08/25 19:42 FiO2 30 07/07/25 06:14 Narrative Exam General: Frail thin elderly lady. Awake and in no acute distress. Conversational and non-toxic appearing. Neurologic: GCS 15. Alert and oriented x3, no gross neurological deficit, and patient able to move all 4 extremities. HEENT: Normocephalic, atraumatic, mucous membranes moist. Pupils reactive to light. Heart: Grade 2 out of 6 systolic ejection murmur regular rate. Lungs: Clear to auscultation bilaterally with no wheezing or crackles. Abdomen: Seborrheic keratoses. Soft, nondistended, nontender,. Extremities: Bright red lower extremities. Skin: Seborrheic keratoses on abdomen. Warm. Dry. No rash or ecchymoses. Objective Labs 07/08/25 04:18 07/08/25 13:10 Labs: Laboratory Results - last 24 hr 07/08/25 07/08/25 04:18 13:10 WBC 11.2 H D RBC 4.03 Hgb 9.2 L Hct 29.4 L MCV 73 L MCH 22.8 L MCHC 31.3 RDW Std Deviation 49.3 H Plt Count 420 D Neut % (Auto) 90 H Lymph % (Auto) 2 L [place] % (Auto) 7 Eos % (Auto) 0 Baso % (Auto) 0 Neut # (Auto) 10.1 H Lymph # (Auto) 0.3 L [place] # (Auto) 0.8 Eos # (Auto) 0.0 Baso # (Auto) 0.0 Immature Gran # (Auto) 0.12 H Absolute Nucleated RBC 0.09 H Immature Gran % 1 H Nucleated RBC % 1 H Sodium 138 138 Potassium 2.9 L D 5.2 H D Chloride 97 L 96 L Carbon Dioxide 25.7 27.9 Anion Gap 15 14 BUN 34 H 36 H Creatinine 1.5 H 1.5 H Estim Creat Clear Calc 26.7 L 26.7 L eGFR 35 L 35 L BUN/Creatinine Ratio 23 H 24 H Glucose 298 H 257 H Calculated Osmolality 294 292 Calcium 9.5 9.7 Corrected Calcium 9.5 9.7 Phosphorus 3.2 2.9 Magnesium 1.9 Total Bilirubin 1.7 H AST 30 ALT 59 H Alkaline Phosphatase 262 H D Total Protein 6.0 Albumin 4.1 4.2 Globulin 1.9 L Albumin/Globulin Ratio 2.2 ABG Interpretation ABG results: 07/06/25 07/07/25 17:05 04:47 ABG pH 7.37 7.40 ABG pCO2 28 L 30 L ABG pO2 94 98 ABG HCO3 16 L 19 L ABG O2 Saturation 98 99 H ABG Base Excess -8 L -5 L Quality Measures Quality Measures VTE prophylaxis and none Advance care planning discussed with:: patient Assessment & Plan Assessment Current Active Medications: Generic Name Dose Route Start Last Admin Trade Name Lib[place] PRN Reason Stop Dose Admin Acetaminophen 650 mg 07/06/25 20:31 07/08/25 05:50 Acetaminophen 325 Mg Tablet PO 08/05/25 20:30 650 mg Q6H PRN Administration Fever >100.4 Acetaminophen 650 mg 07/06/25 20:31 Acetaminophen Supp 650 Mg Supp [place] 08/05/25 20:30 Q6H PRN PAIN Hydrocodone Bitart/Acetaminophen 1 tab 07/07/25 15:09 Hydrocodone/Apap 7.5/325 Tablet PO 07/12/25 15:08 BID PRN pain 4-10 Albuterol/Ipratropium 3 ml 07/06/25 23:00 07/08/25 18:43 Albuterol/Ipratropium (Duoneb) Rt Renay 3 Ml Nebu INH 08/05/25 22:59 3 ml Q4HRRT REKHA Administration Albuterol/Ipratropium 3 ml 07/07/25 10:28 Albuterol/Ipratropium (Duoneb) Rt Renay 3 Ml Nebu INH 08/06/25 10:27 Q2HR PRN SHORTNESS OF BREATH OR WHEEZE Aspirin 81 mg 07/07/25 15:15 07/08/25 08:38 Aspirin 81 Mg Chew PO 08/06/25 15:14 81 mg QDAY REKHA Administration Bumetanide 2 mg 07/09/25 09:00 Bumetanide 0.5 Mg Tablet PO 08/08/25 08:59 QDAY REKHA Dextrose 25 ml 07/06/25 20:27 Dextrose 50%-Water Inj 50 Ml Syringe IV 08/05/25 20:26 Q15MIN PRN BG 50-70 responsive npo pt Dextrose 50 ml 07/06/25 20:27 Dextrose 50%-Water Inj 50 Ml Syringe IV 08/05/25 20:26 Q15MIN PRN BG <50 OR BG <70 & pt unresponsive Donepezil HCl 10 mg 07/07/25 21:00 07/07/25 21:35 Donepezil Hcl 5 Mg Tablet PO 08/06/25 20:59 10 mg QPM REKHA Administration Glucagon 1 mg 07/06/25 20:27 Glucagon Inj 1 Mg Vial IM Q15MIN PRN BG <70, and no IV access Heparin Sodium (Porcine) 5,000 unit 07/06/25 21:00 07/08/25 08:38 Heparin Sod Inj 5000 Unit/Ml Vial SC 07/20/25 20:59 5,000 unit Q12HR REKHA Administration Ceftriaxone Sodium/Dextrose 1 gm in 50 mls @ 100 mls/hr 07/07/25 10:28 07/08/25 09:09 Rocephin/D5w 1gm Iv Premix IV 07/14/25 10:27 Infused QDAY REKHA Infusion Insulin Degludec 15 unit 07/08/25 21:00 Insulin Degludec 5 Unit/0.05 Ml (Per 5 Units) SC 08/07/25 20:59 HS REKHA Insulin Human Lispro 0 unit 07/07/25 11:30 07/08/25 16:32 Insulin Lispro (Admelog) 1 Unit/0.01 Ml Unit SC 08/06/25 11:29 4 unit AC REKHA Administration Protocol Insulin Human Lispro 4 unit 07/08/25 11:30 07/08/25 16:32 Insulin Lispro (Admelog) 1 Unit/0.01 Ml Unit SC 08/07/25 11:29 4 unit AC REKHA Administration Ondansetron HCl 4 mg 07/06/25 20:31 Ondansetron Inj 2 Mg/Ml Inj 2 Ml IVP 08/05/25 20:30 Q6H PRN NAUSEA OR VOMITING Protocol Pantoprazole Sodium 40 mg 07/07/25 09:00 07/08/25 08:38 Pantoprazole Inj 40 Mg Vial IVP 08/06/25 08:59 40 mg QDAY REKHA Administration Sennosides 1 tab 07/06/25 20:31 Senna Tablet PO 08/05/25 20:30 QDAY PRN constipation Protocol Ticagrelor 90 mg 07/07/25 21:00 07/08/25 08:39 Ticagrelor 90 Mg Tablet PO 08/06/25 20:59 90 mg BID REKHA Administration Plan 79-year-old female with a past medical history of hypertension, type 2 diabetes, congestive heart failure, left ventricular dysfunction with implantable cardiac defibrillator, and recurrent V-fib who presented to the ED on 07/06/2025 with worsening shortness of breath. Cardiology was consulted for management of the patient's CHF. #CHF #HFrEF #Peripheral vascular disease with claudication #Presence of drug-coated stent in the left circumflex coronary artery #Implanted cardiac defibrillator - Patient has an ejection fraction of 30% - The patient's ankle brachial index is 0.69 on both sides, suggestive of peripheral artery disease - Patient had 90% stenosis of the left circumflex artery - BNP 971 on this hospital admission - In November 2024, the patient underwent several shocks delivered by her implanted defibrillator, and went to [facility] where she was observed for a few days - Patient would benefit from diuresis Plan: - Patient is on aspirin and Brilinta dual antiplatelet therapy, continue - Continue Bumex 2 mg, reduce from twice daily to once daily dosing - Strict ins and outs, monitor urine output #Acute on chronic hypoxic respiratory failure #COPD exacerbation #MICHEAL #Hyperkalemia #Transaminitis #Anemia #Right lower quadrant abdominal pain #DVT/PE rule out The rest of the patient's hospital problems will be managed per the primary team. Patient was seen and discussed with my attending physician Dr. Pitts. Kevin Wood DO PGY-1.
[2025-07-08] MEDS: DONEPEZIL HCL 5 MG TABLET 10 MG PO (20:24)
[2025-07-08] MEDS: INSULIN DEGLUDEC 5 UNIT/0.05 ML (PER 5 UNITS) 15 UNIT SC (20:25)
--- NOTE | 2025-07-08 20:30 | PC.NURSE ---
At 194, patient's blood pressure was 74/63 with a MAP of 66 and heart rate of 86. Upon evaluation of the patient, patient was found lying in bed comfortably, without complaints. Notably, the patient had received Bumex 1 mg and Lasix 40 mg earlier in the day for CHF exacerbation. MD Lino was notified at 1946 and arrived at the bedside at 1954 along with MD Montoya. Repeat vital signs showed improvement with BP 110/50, MAP 70, and HR 83, with all other vitals within normal limits. MD assessed the patient and recommended no further intervention at this time. Routine care was resumed and continues.
--- NOTE | 2025-07-08 20:45 | PC.NURSE ---
MD Lino notified regarding Patient's BP (
[2025-07-09] VITALS (8 sets, daily range): BP systolic 107–127; BP diastolic 52–70; PULSE 73–93; RESP 14–23; TEMP 36.2–36.6; O2SAT 95–100; BMI 22.1
[2025-07-09] MEDS: ACETAMINOPHEN 325 MG TABLET 650 MG PO ×2 (02:01→09:59)
[2025-07-09] MEDS: ALBUTEROL/IPRATROPIUM (Duoneb) RT SOL 3 ML NEBU INH ×3 (03:37→11:32)
[2025-07-09 05:56] LABS: Basophils # (Auto) 0.0 Thou/mm3 (0.0-0.2); Basophils % (Auto) 0 % (0-2.5); Eosinophils # (Auto) 0.0 Thou/mm3 (0.0-0.5); Eosinophils % (Auto) 0 % (0-10); Hematocrit 29.0 % (36.0-46.0); Immature Granulocytes Auto 0.09 Thou/mm3 (0.00-0.00); Lymphocytes # (Auto) 0.2 Thou/mm3 (1.0-4.8); Lymphocytes % (Auto) 2 % (10-50); Mean Corpuscular HGB Conc 30.0 g/dl (31.0-37.0); Mean Corpuscular Hemoglobin 22.4 pg (25.0-35.0); Mean Corpuscular Volume 75 fL (80-100); Monocytes # (Auto) 0.6 Thou/mm3 (0.0-0.8); Monocytes % (Auto) 6 % (0-12); Neutrophils # (Auto) 10.3 Thou/mm3 (1.8-7.7); Neutrophils % (Auto) 92 % (37-80); Nucleated Red Blood Cell # 0.10 Thou/mm3 (0.00-0.00); Nucleated Red Blood Cell % 1 /100 WBC (0); Platelet Count 400 Thou/mm3 (140-440); RDW Standard Deviation 51.3 fL (36.4-46.3); Red Blood Count 3.89 Miln/mm3 (4.00-5.20); White Blood Count 11.2 Thou/mm3 (3.6-11.0)
[2025-07-09 06:03] LABS: Hemoglobin 8.7 g/dL (12.0-16.0)
[2025-07-09 06:12] LABS: Alanine Aminotransferase 44 U/L (10-49); Albumin, Serum 3.7 gm/dL (3.4-4.8); Albumin/Globulin Ratio 1.9 (1.2-2.2); Alkaline Phosphatase 220 U/L (46-116); Anion Gap 12 (7-16); Aspartate Amino Transferase 30 U/L (0-34); BUN/Creatinine Ratio 19 Ratio (12-20); Bilirubin,Total 1.2 mg/dL (0.3-1.2); Blood Urea Nitrogen 28 mg/dL (9-23); Calcium 9.1 mg/dL (8.3-10.6); Calcium (Corrected) 9.3 mg/dL (8.5-10.1); Carbon Dioxide 27.7 mMol/L (20.0-31.0); Chloride 97 mMol/L (98-107); Creatinine (Component) 1.5 mg/dL (0.6-1.3); Estimated Creatinine Clearance 26.7 mL/min (>60); Globulin 2.0 gm/dL (2.3-3.5); Glucose 255 mg/dL (74-106); Magnesium 2.1 mg/dL (1.6-2.6); Osmolality,Calculated 288 (275-295); Phosphorous 2.4 mg/dL (2.4-5.1); Potassium 3.7 mMol/L (3.4-5.1); Sodium 137 mMol/L (136-145); Total Protein 5.7 gm/dL (5.7-8.2); eGFR 35 See Note
[2025-07-09] MEDS: INSULIN LISPRO (AdmeLOG) 1 UNIT/0.01 ML UNIT SC ×2 (07:56→11:15)
[2025-07-09] MEDS: INSULIN LISPRO (AdmeLOG) 1 UNIT/0.01 ML UNIT 4 UNIT SC ×2 (07:57→11:14)
[2025-07-09] MEDS: POTASSIUM CHLORIDE 10% 20 MEQ/15 ML UDC 40 MEQ GT (07:59)
[2025-07-09] MEDS: HEPARIN SOD INJ 5000 UNIT/ML VIAL SC (08:00)
[2025-07-09] MEDS: cefTRIAXone/D5w 1gm IV premix 1 GM/50 ML BAG IV (08:00)
[2025-07-09] MEDS: TICAGRELOR 90 MG TABLET PO (08:01)
[2025-07-09] MEDS: BUMETANIDE 0.5 MG TABLET 2 MG PO (08:02)
[2025-07-09] MEDS: ASPIRIN 81 MG CHEW PO (08:02)
--- NOTE | 2025-07-09 09:13 | PC.NURSE ---
Per MD Velasquez remove FC. Waiting on post void and may dc after lunch.
--- NOTE | 2025-07-09 09:42 | PC.SS ---
SS met with patient regarding her d/c plan. Pt is alert/oriented. Pt was admitted for Shortness of Breath/Dyspnea. Pt confirmed demographic and contact information is correct on facesheet. Pt resides alone. Pt states she has 2 caregivers 5 days a week. Pt utilizes a wheelchair at home. Pt also utilizes O2 at home from [employer]. Pt states she is established with [facility] and requests to continue with them. SS provided d/c options for home or SNF. Patient?s choice is to return home upon d/c with HH. Pt states not diabetic and is not on dialysis. Pt states she has follow up with PCP in July and her last follow up 2 months ago. Pt named her friend, Terrence Bnetley medical decision maker if she is unable. Terrence will provide transportation home. Pt states she has small O2 tank for transportation. D/C plan: Return home Next of Kin: Terrence Bentley, friend, phone# [phone] PCP: Nancy Obando [facility]: [facility] Address: Correct on facesheet
--- NOTE | 2025-07-09 09:47 | ESDS_ITS ---
<Statement entered by Daksha Olguin MD - 07/23/25 15:06> I reviewed above note and agree with findings and plans. I have also personally examined the patient with medicine team and went over assessment and plan with medical team including consulting intern and resident physician. <Statement entered by Williams Myers MD - 07/09/25 18:43> Patient was seen and examined at bedside. I agree on the assessment and plan on this note as documented by resident Meagan Tidwell PGY1. 79-year-old female with past medical history as below admitted for acute decompensated heart failure, net -9.1 L for hospitalization, underlying suspicion of COPD exacerbation treated with breathing treatments IV steroids, received IV ceftriaxone for urinary tract infection, respiratory status improved significantly with progression of hospital course, currently stable on 2 L nasal cannula. Stable for discharge home with home health, responded well to hospital treatment. Case discussed with attending Dr. Sharif Myers MD PGY-2 Planned Discharge Date 07/09/25 DS: Providers Provider Date of admission: 07/06/25 20:31 Primary care physician: Nancy Obando NP Admitting Provider: Rd Encarnacion MD Attending Provider on Admission: Rd Encarnacion MD Consults: 07/06/25 23:11 Health Equity Referral - Knowledge Deficit Routine Comment: Positive screening for knowledge deficit needs. Health Equity Referral - Nutrition Routine Comment: Positive screening for nutrition needs. Health Equity Referral - Utilities Routine Comment: Positive screening for utility assistance needs. 07/07/25 11:52 Consult to Cardiology Routine Comment: Consulting Provider: Veronica Pitts Instructions: HFrEF exacerbation, sees Dr. Pitts outpatient Attending Provider on DC: Daksha Olguin MD Discharging Provider: Daksha Olguin MD Anticipated date of discharge: 07/09/25 DS: Diagnosis Problem List Completed Was Problem List Reviewed/Reconciled?: Yes Hospital Course Hospital Course Hospital course: Summary Ella Cordova is a 79-year-old female with past medical history significant for HFrEF (20?25%) s/p ICD, paroxysmal Afib, COPD on 2 L home O2, CAD s/p stent on ASA and Brillinta 2023, NIDDM2, HTN, HLD, CKDIIIa and dementia who presented to [facility] emergency department on 8/12 with acute dyspnea and BLE edema. Patient was requiring 6 L oxygen on admission, had significant bilateral lower extremity edema was started on BiPAP, BNP was elevated, chest x- ray showed early heart failure. Patient was started on IV Lasix 40 twice daily, net hospitalization negative -9.1 L, patient was started on scheduled breathing treatments and IV steroids for COPD exacerbation with the progression of hospital course patient's respiratory status improved significantly, patient saturating well on 2 L nasal cannula. Patient's MICHEAL improved with IV diuresis, was started on IV ceftriaxone for urinary tract infection. Cardiology was consulted, home medications were resumed for atrial fibrillation, patient did require subcutaneous insulin as patient was on steroids to maintain inpatient blood glucose goal of 140-200. Further plan is to discharge patient home with home health, patient to follow-up with cardiology and PCP outpatient. Patient to complete antibiotic treatment with cefpodoxime which was adjusted renally, use hydrocortisone cream topically for itching, patient discharged on Bumex per cardiology recommendations. Patient is stable for discharge, responded well to hospital treatment. Discharge Recommendations: -Started on Bumex 2mg daily for heart failure, hold metoprolol and spironolactone until follow up with cardiology. -Complete antibiotic treatment wiith cefpodoxime daily -Use 15 units of Insulin degludec (long acting) daily hold insulin lispro if blood glucose less than 120. -Obtain PFTs outpatient, use breztri daily, use duonebs as needed for rescue. -Use Hydrocortsone cream topically for itching. -Continue all other medications as below, especially aspirin and brillinta. -STOP LASIX, use bumex, do not use both drugs at same time -Follow up with Primary doctor in 1 week in [facility] -Follow up with Cardiology Dr Pitts outpatient. -Return to Emergency room if symptoms worsen. Discharge Diagnosis: #Acute on chronic hypoxic respiratory failure likely 2/2 #Acute CHF exacerbation #COPD exacerbation #MICHEAL on CKDIIIa, resolved #Hypokalemia # None anion gap metabolic acidosis, resolved #Hyperkalemia, resolved #Hyponatremia, resolved #UTI, nonseptic #Hx of ischemic and non-ischemic cardiomyopathy #HFrEF (20-25%) s/p ICD #CAD s/p stent (10/2024) #Severe peripheral artery disease and claudication #Atrial fibrillation, paroxysmal #Transaminitis, improving # Dfc-bahtyvq-xersnuqeu diabetes mellitus type 2 #Hyperglycemia # Right rib pain #Chronic shoulder pain #Microcytic Anemia Case discussed with Attending Physician Dr. Olguin and senior resident Dr Myers PGY-2 Meagan Tidwell Internal Medicine PGY-1 Disclaimer: This note was dictated by speech recognition. Minor errors in drill bit sharpener may be present due to voice recognition software. Time Spent with Patient Time attestation: Total time spent providing and/or coordinating discharge services: Time spent: Greater than 30 minutes Exam Vital Signs Temp Pulse Resp BP Pulse Ox O2 Del Method O2 Flow Rate 97.9 F 73 17 127/69 99 Nasal Cannula 2 07/09/25 08:00 07/09/25 08:02 07/09/25 08:00 07/09/25 08:02 07/09/25 08:00 07/09/25 08:00 07/09/25 08:00 FiO2 30 07/07/25 06:14 Narrative Exam GENERAL: AOx3, no acute distress HEENT: NC/AT, mucous membranes moist, bilateral sclera anicteric CARDIOVASCULAR: regular rate and rhythm, S1/S2 present, no murmurs appreciated PULMONARY: +mild b/l wheezes + mild crackles b/l at bases ABDOMINAL: soft, non-tender, non-distended, no rebound/guarding, bowel sounds present EXTREMITIES: no edema at shins, trace edema at hips SKIN: warm and dry, intact, no rashes NEURO: CN II-XII grossly intact, no focal deficits, alert, following commands Discharge Plan Plan Patient Disposition: Home w/HOME HEALTH Patient condition on transfer: Stable Care Plan Goals: -Started on Bumex 2mg daily for heart failure, hold metoprolol and spironolactone until follow up with cardiology. -Complete antibiotic treatment wiith cefpodoxime daily -Use 15 units of Insulin degludec (long acting) daily hold insulin lispro if blood glucose less than 120. -Obtain PFTs outpatient, use breztri daily, use duonebs as needed for rescue. -Use Hydrocortsone cream topically for itching. -Continue all other medications as below, especially aspirin and brillinta. -STOP LASIX, use bumex, do not use both drugs at same time -Follow up with Primary doctor in 1 week in [facility] -Follow up with Cardiology Dr Pitts outpatient. -Return to Emergency room if symptoms worsen. Prescriptions/Referrals Prescriptions/Med Rec: New bumetanide 2 mg tablet 2 mg PO QDAY 30 Days Qty: 30 0RF cefpodoxime 100 mg tablet 100 mg PO Q24H 4 Days Qty: 4 0RF Rx Instructions: must administer with a meal/food (DME) pen needle, diabetic [Comfort EZ Pen [place]] 31 gauge x 1/4 needle See Rx Instructions .Route Qty: 100 0RF Rx Instructions: As directed Breztri Aerosphere 160-9-4.8 mcg/actuation HFA aerosol inhaler 2 inh inhalation BID Qty: 10.7 0RF hydrocortisone 1 % cream 1 applic topical BID PRN (Reason: itching) Qty: 28.4 0RF insulin degludec 100 unit/mL (3 mL) insulin pen 15 unit subcut QDAY Qty: 15 0RF Continued hydrocodone-acetaminophen 7.5-325 mg tablet 1 tab PO BID MDD 2 tab PRN (Reason: pain) Qty: 20 0RF donepezil 10 mg Tablet 10 mg PO QPM aspirin 81 mg Tablet,Chewable 81 mg PO QDAY Qty: 30 5RF ticagrelor [Brilinta] 90 mg Tablet 90 mg PO BID Qty: 60 5RF amiodarone 100 mg tablet 100 mg PO DAILY dapagliflozin propanediol 10 mg tablet 10 mg PO QDAY Patient Comments: TAKE ONE TABLET BY MOUTH EVERY MORNING FOR DIABETES ipratropium-albuterol 0.5 mg-3 mg(2.5 mg base)/3 mL solution for nebulization 3 ml inhalation Q4H PRN (Reason: shortness of breath or wheezing) Qty: 90 0RF magnesium oxide 400 mg (241.3 mg magnesium) tablet 400 mg PO QDAY 30 Days Qty: 30 2RF Held metoprolol succinate 25 mg tablet extended release 24 hr 25 mg PO QDAY Hold Instructions: Resume on 07/16/25. Follow up with Cardiology prior to resuming Patient Comments: TAKE ONE TABLET BY MOUTH WITH FOOD EVERY DAY FOR BLOOD PRESSURE Discontinued hydrocodone-acetaminophen 7.5-325 mg tablet 1 tab PO BID MDD 15 mg PRN (Reason: pain) Qty: 60 0RF spironolactone 25 mg Tablet 25 mg PO QDAY furosemide 40 mg tablet 40 mg PO DAILY Referrals: Nancy Obando NP [Primary Care Provider] - Daphne Velasquez MD [Resident] - Veronica Pitts MD [Physician] - Patient/Caregiver Discharge Instructions Discharge Activity: activity as tolerated Education Materials: AFL/Afib, Discharge Instructions: COPD, ED Heart Failure, Congestive (CHF), Heart Failure Print Language: German Stand Alone Forms: Amelia Award Info., Patient Portal Info Letter Discharge Order Discharge Orders: Discharge (Routine); Ordered 07/09/25 Ordered By: Williams Myers Quality Discharge Quality Measures VTE prophylaxis
--- NOTE | 2025-07-09 10:25 | CHAP ---
Patient expressed gratitude for visit and prayer.
--- NOTE | 2025-07-09 12:22 | PC.NURSE ---
MD Truong rounded on pt and informed pt has not void after fc discontinuation at 0910am no new orders.
--- NOTE | 2025-07-09 16:06 | PC.CC ---
[employer] 3 Plus CGM system order and documentation prepared for [facility]. Will obtain MD signatures.
--- NOTE | 2025-07-11 11:41 | PC.CC ---
Addendum entered by Rasheed Zhao RN 07/11/25 15:01: HH referral sent on [employer]. Awaiting responses. Pending resume of care date. Addendum entered by Rasheed Zhao RN 07/11/25 11:42: pt is open with [facility]. Original Note: Reached out to Dr. Velasquez, need HH orders.
--- NOTE | 2025-07-12 07:17 | PC.CC ---
[facility] accepted and booked, SOC 07/13
== END 2025-07-09 14:36 | disposition home health service (06) | DRG 190 ==
LOC: SERX 18:36 → SERHOLD 20:51 → S2NX 22:40
PROVIDERS: Admitting Provider Internal Medicine; Emergency Provider Family Medicine; PCP Nurse Practitioner Family; Visit Provider Internal Medicine
DX: J44.1 Chronic obstructive pulmonary disease with (acute) exacerbation (principal); J96.21 Acute and chronic respiratory failure with hypoxia; I50.22 Chronic systolic (congestive) heart failure; N17.9 Acute kidney failure, unspecified; E87.1 Hypo-osmolality and hyponatremia; E87.20 Acidosis, unspecified; I13.0 Hypertensive heart and chronic kidney disease with heart failure and stage 1 through stage 4 chronic kidney disease, or unspecified chronic kidney disease; I42.8 Other cardiomyopathies; N39.0 Urinary tract infection, site not specified; E78.5 Hyperlipidemia, unspecified; Z99.81 Dependence on supplemental oxygen; Z95.0 Presence of cardiac pacemaker; F03.90 Unspecified dementia, unspecified severity, without behavioral disturbance, psychotic disturbance, mood disturbance, and anxiety; L82.1 Other seborrheic keratosis; E87.5 Hyperkalemia; D50.9 Iron deficiency anemia, unspecified; R10.31 Right lower quadrant pain; E11.22 Type 2 diabetes mellitus with diabetic chronic kidney disease; E11.51 Type 2 diabetes mellitus with diabetic peripheral angiopathy without gangrene; E11.65 Type 2 diabetes mellitus with hyperglycemia; E83.42 Hypomagnesemia; E87.6 Hypokalemia; G89.29 Other chronic pain; I25.10 Atherosclerotic heart disease of native coronary artery without angina pectoris; I48.0 Paroxysmal atrial fibrillation; N18.31 Chronic kidney disease, stage 3a; Z79.4 Long term (current) use of insulin; Z79.82 Long term (current) use of aspirin; Z79.84 Long term (current) use of oral hypoglycemic drugs; Z79.899 Other long term (current) drug therapy; Z87.891 Personal history of nicotine dependence; Z90.710 Acquired absence of both cervix and uterus; Z91.148 Patient's other noncompliance with medication regimen for other reason; Z95.5 Presence of coronary angioplasty implant and graft; Z95.810 Presence of automatic (implantable) cardiac defibrillator; Z88.0 Allergy status to penicillin; Z88.2 Allergy status to sulfonamides
CPT/HCPCS: 36415; 36600; 71045; 76705; 80048; 80053; 80069; 81001; 82010; 82803; 83605; 83735; 83880; 84100; 84145; 84484; 85025; 85610; 85730; 87040; 87400; 87811; 93005; 93971; 94640; 94660; 96365; 96375; 99284; A9270; J0456; J0696; J1644; J1815; J1938; J2470; J2919; J3475; J3480; J7050; J7644

== ENCOUNTER → 2025-08-05 | Outpatient (CLI) | payer OTHER, MEDICAID, SELFPAY ==
[2025-08-05 14:56] LABS: Basophils # (Auto) 0.1 Thou/mm3 (0.0-0.2); Basophils % (Auto) 1 % (0-2.5); Eosinophils # (Auto) 0.3 Thou/mm3 (0.0-0.5); Eosinophils % (Auto) 4 % (0-10); Hematocrit 35.2 % (36.0-46.0); Hemoglobin 10.8 g/dL (12.0-16.0); Immature Granulocytes Auto 0.05 Thou/mm3 (0.00-0.00); Lymphocytes # (Auto) 1.1 Thou/mm3 (1.0-4.8); Lymphocytes % (Auto) 16 % (10-50); Mean Corpuscular HGB Conc 30.7 g/dl (31.0-37.0); Mean Corpuscular Hemoglobin 22.0 pg (25.0-35.0); Mean Corpuscular Volume 72 fL (80-100); Monocytes # (Auto) 0.7 Thou/mm3 (0.0-0.8); Monocytes % (Auto) 10 % (0-12); Neutrophils # (Auto) 4.9 Thou/mm3 (1.8-7.7); Neutrophils % (Auto) 69 % (37-80); Nucleated Red Blood Cell # 0.00 Thou/mm3 (0.00-0.00); Nucleated Red Blood Cell % 0 /100 WBC (0); Platelet Count 417 Thou/mm3 (140-440); RDW Standard Deviation 51.9 fL (36.4-46.3); Red Blood Count 4.92 Miln/mm3 (4.00-5.20); White Blood Count 7.1 Thou/mm3 (3.6-11.0)
[2025-08-05 15:20] LABS: Alanine Aminotransferase 14 U/L (10-49); Albumin, Serum 4.6 gm/dL (3.4-4.8); Albumin/Globulin Ratio 2.1 (1.2-2.2); Alkaline Phosphatase 187 U/L (46-116); Anion Gap 11 (7-16); Aspartate Amino Transferase 24 U/L (0-34); BUN/Creatinine Ratio 25 Ratio (12-20); Bilirubin,Direct 0.4 mg/dL (0.0-0.3); Bilirubin,Total 1.0 mg/dL (0.3-1.2); Blood Urea Nitrogen 38 mg/dL (9-23); Calcium 9.8 mg/dL (8.3-10.6); Calcium (Corrected) 9.8 mg/dL (8.5-10.1); Carbon Dioxide 23.6 mMol/L (20.0-31.0); Cardiac Risk Estimate 2.6 RATIO (3.7-5.6); Chloride 102 mMol/L (98-107); Cholesterol 143 mg/dL (132-200); Creatinine (Component) 1.5 mg/dL (0.6-1.3); Globulin 2.2 gm/dL (2.3-3.5); Glucose 169 mg/dL (74-106); HDL Cholesterol 56 mg/dL (40-60); LDL Cholesterol,Calculated 72 mg/dL (0-130); Osmolality,Calculated 286 (275-295); Phosphorous 4.5 mg/dL (2.4-5.1); Potassium 4.5 mMol/L (3.4-5.1); Sodium 137 mMol/L (136-145); Total Protein 6.8 gm/dL (5.7-8.2); Triglycerides 76 mg/dL (30-150); eGFR 35 See Note
[2025-08-05 15:23] LABS: Glucose Estimated Average 217 mg/dL (80-131); Hemoglobin A1C 9.2 % Hgb (4.8-6.0)
== END | disposition home or self-care (01) ==
PROVIDERS: PCP Family Medicine; Referring Provider Internal Medicine Cardiovascular Disease; Visit Provider Nurse Practitioner Family
DX: E11.22 Type 2 diabetes mellitus with diabetic chronic kidney disease (principal); N18.9 Chronic kidney disease, unspecified; E78.2 Mixed hyperlipidemia; Z95.5 Presence of coronary angioplasty implant and graft; J18.9 Pneumonia, unspecified organism; E11.65 Type 2 diabetes mellitus with hyperglycemia
CPT/HCPCS: 36415; 80053; 80061; 82248; 83036; 84100; 85025

== ENCOUNTER 2025-09-17 13:21 | Outpatient (AMB) | payer OTHER, MEDICAID, SELFPAY ==
[2025-09-17 14:06] VITALS: BP 104/73; PULSE 87; RESP 16; TEMP 36.5; O2SAT 90; BMI 22.8
--- NOTE | 2025-09-17 14:06 | ACNOTE_ITS ---
Vital Signs 09/17/25 14:06 Height 1.63 m Height Method Stated Weight 60.384 kg Weight Measurement Method Standing Scale BMI 22.8 BP 104/73 Blood Pressure Source Automatic Cuff Blood Pressure Location Right Upper Arm Position Sitting Respiration 16 Pulse 87 Pulse Source Monitor Temp 97.7 F Temp Source Temporal Artery Scan Pulse Oximetry (%) 90 L Oxygen Delivery Method Room Air Allergies/Meds Allergies & Medications Allergies Penicillins Allergy (Severe, Verified 09/17/25 14:08) UNKNOWN Sulfa (Sulfonamide Antibiotics) Allergy (Severe, Verified 09/17/25 14:08) Swelling Medication Reconciliation donepezil 10 mg tablet 10 mg PO QPM 09/05/21 [History Confirmed 09/17/25] metoprolol succinate 25 mg tablet,extended release 24 hr 25 mg PO QDAY 02/27/24 [History Confirmed 09/17/25] Held on 07/09/25. Instructions: Resume on 07/16/25. Follow up with Cardiology prior to resuming magnesium oxide 400 mg (241.3 mg magnesium) tablet 400 mg PO QDAY 30 days #30 tabs 04/30/24 [Rx Confirmed 09/17/25] aspirin 81 mg chewable tablet 81 mg PO QDAY #30 tabs 10/26/24 [Rx Confirmed 09/17/25] ticagrelor 90 mg tablet (Brilinta) 90 mg PO BID #60 tabs 10/26/24 [Rx Confirmed 09/17/25] amiodarone 100 mg tablet 100 mg PO DAILY Atrial fibrilation 05/04/25 [History Confirmed 09/17/25] dapagliflozin propanediol 10 mg tablet 10 mg PO QDAY 05/05/25 [History Confirmed 09/17/25] ipratropium 0.5 mg-albuterol 3 mg (2.5 mg base)/3 mL nebulization soln 3 ml inhalation Q4H PRN shortness of breath or wheezing #90 mL 05/06/25 [Rx Confirmed 09/17/25] budesonide 160 mcg-glycopyr 9 mcg-formot 4.8 mcg/actuation HFA inhaler (Breztri Aerosphere) 2 inh inhalation BID #10.7 grams 07/09/25 [Rx Confirmed 09/17/25] hydrocortisone 1 % topical cream 1 applic topical BID PRN itching #28.4 grams 07/09/25 [Rx Confirmed 09/17/25] insulin degludec 100 unit/mL (3 mL) subcutaneous pen 15 unit (0.15 mL) subcut QDAY #15 mL 07/09/25 [Rx Confirmed 09/17/25] pen needle, diabetic 31 gauge x 1/4 (Comfort EZ Pen [place]) #100 ea 07/09/25 [Rx Confirmed 09/17/25] hydrocodone 7.5 mg-acetaminophen 325 mg tablet 1 tab PO BID PRN pain #50 tabs 09/17/25 [Rx] MA Intake Visit Data Collection New Patient or Established: Established Patient (seen at [facility] within 3 years) Seen by Clinical Staff ONLY (RN/MA): No Pain Present Currently: Yes Pain Location: Shoulder Pain scale:: 9 Pain Scale Used: Marquez-Addison/Numerical Veterinary X Ray Operator Required: No PCP or OBGYN visit in last 3 months: Yes Do You Feel Safe at Home: Yes Authorities Contacted: N/A Smoking Status Smoking Status: Former smoker Immunization / Flu Flu Vaccine in the Last 12 Months: Yes Date of most recent flu vaccination: 07/26/25 Flu Vaccine Exclusion Criteria: Already Received Past Medical History Past Medical History NEUROLOGIC: Positive Dementia; Negative Neurological Disorders CARDIAC: Positive Cardiac Disorders, Cardiac Arrhythmia, Atrial Fibrillation, Heart Murmur, Coronary Artery Disease, Peripheral Vascular Disease, Hypercholesterolemia, Congestive Heart Failure, Cardiomyopathy, Hypertension and Hypotension RESPIRATORY: Positive Chronic Obstructive Pulmonary Disease (COPD), Asthma, Smoking, Smoking Cessation Counseling and Tobacco Use GASTROINTESTINAL: Negative Gastrointestinal Disorders GENITOURINARY: Negative Genitourinary Disorders or Renal Disease ENDOCRINE: Positive Endocrine Disorders and Diabetes Mellitus Type 2; Negative Diabetes Mellitus Type 1 HEMATOLOGIC: Negative Blood Disorders or Sickle Cell Disease Surgical History SURGICAL: Positive Pacemaker, Ear Surgery, Tonsillectomy and Hysterectomy; Negative Cardiac Surgery, Endocrine Surgery, Abdominal Surgery, Nephrectomy or Neurologic Surgery Social History SMOKING STATUS: Smoking status: Former smoker PACK YEARS: Pack-Years: 65 SECOND HAND EXPOSURE: second hand exposure: No ALCOHOL: Alcohol Intake: Former ALCOHOL FREQUENCY: Alcohol Intake Frequency: holidays/special occasions only HOUSING: Housing: Apartment LIVES WITH: Lives With: Alone Patient Portal Questionaires PHQ-9 PHQ-2 Over the last 2 weeks, how often have you been bothered by any of the following problems? 1. Little interest or pleasure in doing things: not at all 2. Feeling down, depressed, or hopeless: not at all Total score: 0 PHQ-9 3. Trouble falling or staying asleep, or sleeping too much: Not at all 4. Feeling tired or having little energy: Not at all 5. Poor appetite or overeating: Not at all 6. Feeling bad about yourself - or that you are a failure or have let yourself or your family down: Not at all 7. Trouble concentrating on things, such as reading the newspaper or watching television: Not at all 8. Moving or speaking so slowly that other people could have noticed? - Or the opposite - being so fidgety or restless that you have been moving around a lot more than usual: not at all 9. Thoughts that you would be better off or of hurting yourself in some way: Not at all Total score: 0 If you checked off any problems, how difficult have these problems made it for you to do your work, take care of things at home, or get along with other people?: not difficult at all Source: Developed by Drs. Alex Veronica, Brittney Fonseca, Antwon Castaneda and colleagues, with an educational mechelle from [employer]. Depression screen completed yes Social History Living Situation History Housing: Apartment Housing Other:: Pt lives alone Tobacco History Smoking Status: Former smoker Packs per Day: 2 Pack-Years: 65 Second Hand Smoke Exposure: No Alcohol History Alcohol Intake: Former Alcohol Intake Frequency: holidays/special occasions only Substance Use History Substance Use: meth Domestic Abuse History Do You Feel Safe at Home: Yes Review of Systems Report any current symptoms Only answer those that you have currently: Past Medical History Past Medical History Have you ever been diagnosed with any of the following: Neurological Problems Dementia: Yes Cardiology Problems Cardiac Arrhythmia: Yes Atrial Fibrillation: Yes Heart Murmur: Yes Coronary Artery Disease: Yes Peripheral Vascular Disease: Yes Hypercholesterolemia: Yes Congestive Heart Failure: Yes Cardiomyopathy: Yes Hypertension: Yes Hypotension: Yes Respiratory Problems Chronic Obstructive Pulmonary Disease (COPD): Yes Asthma: Yes Smoking: Yes Smoking Cessation Counseling: Yes Tobacco Use: Yes Genital/Urinary Problems Renal Disease: No Endocrine Problems Diabetes Mellitus Type 1: No Diabetes Mellitus Type 2: Yes Blood Problems Sickle Cell Disease: No Surgical History Hysterectomy: Yes Pacemaker: Yes History of Present Illness HPI Narrative Ms. Cordova is a 77-year-old demale with a medical history of osteoarthritis, chronic T4 compression fracture with kyphosis, left fibular fracture (March 2023), primary hypertension, diabetes mellitus type II, hyperlipidemia, 4cm thoracic aortic aneurysm, dilated cardiomyopathy HFrEF 25% s/p defibrillator followed by cardiology Dr. Pitts, & chronic atrial fibrillation on Eliquis, COPD/asthma on home O2 PRN 2/2 chronic tobacco use (>30 yrs), NIDDM2, dementia, chronic tremor, & anxiety/depression. 04/08: Pt is in office for follow up visit for pain management. Since pt's last visit in office in october 2024. Pt has had multiple hospitalizations. Pt was initially hospitalized at [facility] earlier this year due to recent fall causing hip fracture and underwent surgery. Pt also had TX and states her defibrillator was replaced during her hospitalization at [facility]. Pt was also in rehab post op for weeks. and was recently sent home less than a week ago. Pt has been experiencing a lot joint pain and is requesting a refill of her home [place] 7.5- 325 mg for chronic back and shoulder pain secondary to osteoarthritis and chronic compression fracture. Pt is also requesting intra-articular kenalog i njection in the right shoulder. she has no other complaints or concerns. 05/13: Pt is in office for follow up visit after hospitalization. pt was hospitalized from 05/04-05/07 for COPD exacerbation secondary to community acquired pneumonia. During hospitalization, pt received breathing treatments, steroids and IV antibiotics. Currently using 2L oxygen all day. Pt was discharged on antibiotics which she is continuing currently. Pt is out of her norco refill, and in office for refill medication. Pt also want referral for IR hip steroid injection which usually gets once or twice a year. she has no other complaints or concerns. 06/14/2025: The patient presented for F/U visit regarding her hip and shoulder pain. She reported her shoulder pain improving after steroid shot but wasn't able to get IR guided hip steroid shot which was scheduled during last visit. She requested [place] 7.5-325 mg twice daily as needed for pain refill, and was refilled. She was given the phone number for [facility], and was recommended to call the number and get the appointment for the steroid shot. She admitted occasional mild SOB, that is her baseline and occasionally require oxygen 2 L via NC. She denied any chest pain, fever or chills, nausea or vomiting, orthopnea or PND. 09/17/2025: Patient presents for F/U visit for her right shoulder pain and left hip pain. She says that she has ran out of her last prescription of 1 month's supply of 60 tablets of PO [place] 7.25/325 q6HR prn for her pain (she states that she takes this BID). On CURES review, patient does not seem to be obtaining duplicate pain medications from any other providers. However, due to concern for possible development of opiate addiction, a prescription was written for 50 tablets of PO [place] 7.25/325 instead of 60 and patient was encouraged to follow up with a pain specialist (referral ordered). Patient also requested a steroid injection for her right shoulder pain but, due to lack of supply at clinic, she did not receive this at this time. Review of Systems Review of Systems Systems Reviewed: All systems reviewed, normal except as documented Objective/Exam Narrative Physical exam: General: Sitting in wheelchair. A/O x3, no acute distress. Skin: Warm, dry, intact, no obvious rash. Head: Normocephalic, atraumatic. Eyes: Anicteric, vision grossly intact. Ears: No ear pain, no ear discharge, Hearing grossly intact. Nose: No nasal discharge. Cardiovascular: Regular rate and rhythm, no murmur, no JVD or carotid bruits. +S1/S2. Respiratory: Bilateral lungs are clear to auscultation, respirations unlabored, no crackles, no wheezing. No accessory muscle use. Gastrointestinal: Soft, nontender, non-distended, no palpable masses. No guarding or rebound tenderness. Peristalsis present. Extremities: Symmetrical, no significant deformities. No edema, no cyanosis, no clubbing. 2+ radial pulse bilaterally, 2+ posterior tibial pulse bilaterally. Neuro: No focal deficits observed. Conversant, moving all extremities. No overt cerebellar signs/incoordination. MSK: Right shoulder pain and left hip pain with movement. Psychiatric: Cooperative, appropriate affect. Assessment & Plan Diagnosis / Problem List (1) Osteoarthritis of left hip: Status: Acute Plan: -Refilled patient's prescription of PO [place] 7.25/325 q6HR prn for pain (50 pills for 1 month) -Referral to pain specialist (2) Primary osteoarthritis, right shoulder: Status: Acute Plan: -Patient was unable to receive cortisone shot today for her shoulder due to clinic's lack of supply -Refilled patient's prescription of PO [place] 7.25/325 q6HR prn for pain (50 pills for 1 month) -Referral to pain specialist Plan I have examined the patient and conferred with my attending, Dr. Nguyen, regarding them. Vijay Ramos DO PGY-1 Internal Medicine Orders: Referrals Referral Pain Management Vijay Ramos MD M16.12 - Unilateral primary osteoarthritis, left hip, M19.011 - Primary osteoarthritis, right shoulder Advanced Care Planning Advance care planning discussed with:: patient Office Procedures [facility] Level of Care Nursing/Assessment Patient Status: Established Patient Nursing Assessment/Reassessment: Medication Reconciliation, Update PMH in EMR and Vital Signs Coordination of Care: Complex Care/Chronic Disease 5 or more, Education Complex Pt/Fam, Consent,records obtained, informed consent, Education Simp Pt/Fam, Lab and Imaging orders, Results/Orders obtained and Staff clarify orders Established Patient Charge Established Patient Point Assignment: 135 Established Patient Point Charge: EP Level 4 (120-155) TB Screening LTBI Screening: Has patient traveled, was born, or resided for at least 1 month, or frequent border crossing into a country with an elevated TB rate: No Immunosuppression, current or planned (HIV, organ transplant, treated with biologic agents, steroids, or other immunosuppression medication): No Close contact to someone with infectious TB disease during lifetime: No Homelessness or incarceration, current or past: No TB testing indicated at this time (at least 1 yes above): No
== END 2025-09-17 15:16 | disposition home or self-care (01) ==
LOC: HODAHC 13:21
PROVIDERS: Supervising Provider Internal Medicine
DX: M16.12 Unilateral primary osteoarthritis, left hip (principal); M19.011 Primary osteoarthritis, right shoulder
CPT/HCPCS: 99214; G0463

== ENCOUNTER 2025-09-29 14:33 | Outpatient (AMB) | payer OTHER, MEDICAID, SELFPAY ==
[2025-09-29 14:44] VITALS: BP 96/68; PULSE 99; RESP 18; TEMP 36; O2SAT 94; BMI 23.6
--- NOTE | 2025-09-29 14:44 | ACNOTE_ITS ---
Vital Signs 09/29/25 14:44 Height 1.63 m Height Method Stated Weight 62.652 kg Weight Measurement Method Standing Scale BMI 23.6 BP 96/68 Blood Pressure Source Automatic Cuff Blood Pressure Location Left Upper Arm Position Sitting Respiration 18 Pulse 99 Pulse Source Monitor Temp 96.8 F Temp Source Temporal Artery Scan Pulse Oximetry (%) 94 L Oxygen Delivery Method Room Air Allergies/Meds Allergies & Medications Allergies Penicillins Allergy (Severe, Verified 09/29/25 14:45) UNKNOWN Sulfa (Sulfonamide Antibiotics) Allergy (Severe, Verified 09/29/25 14:45) Swelling Medication Reconciliation donepezil 10 mg tablet 10 mg PO QPM 09/05/21 [History Confirmed 09/29/25] metoprolol succinate 25 mg tablet,extended release 24 hr 25 mg PO QDAY 02/27/24 [History Confirmed 09/29/25] Held on 07/09/25. Instructions: Resume on 07/16/25. Follow up with Cardiology prior to resuming magnesium oxide 400 mg (241.3 mg magnesium) tablet 400 mg PO QDAY 30 days #30 tabs 04/30/24 [Rx Confirmed 09/29/25] aspirin 81 mg chewable tablet 81 mg PO QDAY #30 tabs 10/26/24 [Rx Confirmed 09/29/25] ticagrelor 90 mg tablet (Brilinta) 90 mg PO BID #60 tabs 10/26/24 [Rx Confirmed 09/29/25] amiodarone 100 mg tablet 100 mg PO DAILY Atrial fibrilation 05/04/25 [History Confirmed 09/29/25] dapagliflozin propanediol 10 mg tablet 10 mg PO QDAY 05/05/25 [History Confirmed 09/29/25] ipratropium 0.5 mg-albuterol 3 mg (2.5 mg base)/3 mL nebulization soln 3 ml inhalation Q4H PRN shortness of breath or wheezing #90 mL 05/06/25 [Rx Confirmed 09/29/25] budesonide 160 mcg-glycopyr 9 mcg-formot 4.8 mcg/actuation HFA inhaler (Breztri Aerosphere) 2 inh inhalation BID #10.7 grams 07/09/25 [Rx Confirmed 09/29/25] hydrocortisone 1 % topical cream 1 applic topical BID PRN itching #28.4 grams 07/09/25 [Rx Confirmed 09/29/25] insulin degludec 100 unit/mL (3 mL) subcutaneous pen 15 unit (0.15 mL) subcut QDAY #15 mL 07/09/25 [Rx Confirmed 09/29/25] pen needle, diabetic 31 gauge x 1/4 (Comfort EZ Pen [place]) #100 ea 07/09/25 [Rx Confirmed 09/29/25] diclofenac sodium 1 % topical gel (Arthritis Pain (diclofenac)) 2 g topical QID right shoulder pain #50 grams 09/29/25 [Rx] hydrocodone 7.5 mg-acetaminophen 325 mg tablet 1 tab PO BID PRN pain #50 tabs 09/29/25 [Rx] MA Intake Visit Data Collection New Patient or Established: Established Patient (seen at [facility] within 3 years) Seen by Clinical Staff ONLY (RN/MA): No Pain Present Currently: No Pain scale:: 0 Pain Scale Used: Marquez-Addison/Numerical Ux Researcher Required: No PCP or OBGYN visit in last 3 months: Yes Hx Now: No Do You Feel Safe at Home: Yes Authorities Contacted: N/A Smoking Status Smoking Status: Former smoker Immunization / Flu Flu Vaccine in the Last 12 Months: No Flu Vaccine Exclusion Criteria: No Exclusion Criteria Past Medical History Past Medical History NEUROLOGIC: Positive Dementia; Negative Neurological Disorders CARDIAC: Positive Cardiac Disorders, Cardiac Arrhythmia, Atrial Fibrillation, Heart Murmur, Coronary Artery Disease, Peripheral Vascular Disease, Hypercholesterolemia, Congestive Heart Failure, Cardiomyopathy, Hypertension and Hypotension RESPIRATORY: Positive Chronic Obstructive Pulmonary Disease (COPD), Asthma, Smoking, Smoking Cessation Counseling and Tobacco Use GASTROINTESTINAL: Negative Gastrointestinal Disorders GENITOURINARY: Negative Genitourinary Disorders or Renal Disease ENDOCRINE: Positive Endocrine Disorders and Diabetes Mellitus Type 2; Negative Diabetes Mellitus Type 1 HEMATOLOGIC: Negative Blood Disorders or Sickle Cell Disease Surgical History SURGICAL: Positive Pacemaker, Ear Surgery, Tonsillectomy and Hysterectomy; Negative Cardiac Surgery, Endocrine Surgery, Abdominal Surgery, Nephrectomy or Neurologic Surgery Social History SMOKING STATUS: Smoking status: Former smoker PACK YEARS: Pack-Years: 65 SECOND HAND EXPOSURE: second hand exposure: No ALCOHOL: Alcohol Intake: Former ALCOHOL FREQUENCY: Alcohol Intake Frequency: holidays/special occasions only HOUSING: Housing: Apartment LIVES WITH: Lives With: Alone Patient Portal Questionaires PHQ-9 PHQ-2 Over the last 2 weeks, how often have you been bothered by any of the following problems? 1. Little interest or pleasure in doing things: not at all 2. Feeling down, depressed, or hopeless: not at all Total score: 0 PHQ-9 8. Moving or speaking so slowly that other people could have noticed? - Or the opposite - being so fidgety or restless that you have been moving around a lot more than usual: not at all Source: Developed by Drs. Alex Veronica, Brittney Fonseca, Antwon Castaneda and colleagues, with an educational mechelle from [employer]. Social History Living Situation History Housing: Apartment Housing Other:: Pt lives alone Tobacco History Smoking Status: Former smoker Packs per Day: 2 Pack-Years: 65 Second Hand Smoke Exposure: No Alcohol History Alcohol Intake: Former Alcohol Intake Frequency: holidays/special occasions only Substance Use History Substance Use: meth Domestic Abuse History Do You Feel Safe at Home: Yes Review of Systems Report any current symptoms Only answer those that you have currently: Past Medical History Past Medical History Have you ever been diagnosed with any of the following: Neurological Problems Dementia: Yes Cardiology Problems Cardiac Arrhythmia: Yes Atrial Fibrillation: Yes Heart Murmur: Yes Coronary Artery Disease: Yes Peripheral Vascular Disease: Yes Hypercholesterolemia: Yes Congestive Heart Failure: Yes Cardiomyopathy: Yes Hypertension: Yes Hypotension: Yes Respiratory Problems Chronic Obstructive Pulmonary Disease (COPD): Yes Asthma: Yes Smoking: Yes Smoking Cessation Counseling: Yes Tobacco Use: Yes Genital/Urinary Problems Renal Disease: No Endocrine Problems Diabetes Mellitus Type 1: No Diabetes Mellitus Type 2: Yes Blood Problems Sickle Cell Disease: No Surgical History Hysterectomy: Yes Pacemaker: Yes History of Present Illness HPI Narrative Ms. Cordova is a 77-year-old demale with a medical history of osteoarthritis, chronic T4 compression fracture with kyphosis, left fibular fracture (March 2023), primary hypertension, diabetes mellitus type II, hyperlipidemia, 4cm thoracic aortic aneurysm, dilated cardiomyopathy HFrEF 25% s/p defibrillator followed by cardiology Dr. Pitts, & chronic atrial fibrillation on Eliquis, COPD/asthma on home O2 PRN 2/2 chronic tobacco use (>30 yrs), NIDDM2, dementia, chronic tremor, & anxiety/depression. 04/08: Pt is in office for follow up visit for pain management. Since pt's last visit in office in october 2024. Pt has had multiple hospitalizations. Pt was initially hospitalized at [facility] earlier this year due to recent fall causing hip fracture and underwent surgery. Pt also had [place] and states her defibrillator was replaced during her hospitalization at [facility]. Pt was also in rehab post op for weeks. and was recently sent home less than a week ago. Pt has been experiencing a lot joint pain and is requesting a refill of her home [place] 7.5- 325 mg for chronic back and shoulder pain secondary to osteoarthritis and chronic compression fracture. Pt is also requesting intra-articular kenalog injection in the right shoulder. she has no other complaints or concerns. 05/13: Pt is in office for follow up visit after hospitalization. pt was hospitalized from 05/04-05/07 for COPD exacerbation secondary to community acquired pneumonia. During hospitalization, pt received breathing treatments, steroids and IV antibiotics. Currently using 2L oxygen all day. Pt was discharged on antibiotics which she is continuing currently. Pt is out of her norco refill, and in office for refill medication. Pt also want referral for IR hip steroid injection which usually gets once or twice a year. she has no other complaints or concerns. 06/14/2025: The patient presented for F/U visit regarding her hip and shoulder pain. She reported her shoulder pain improving after steroid shot but wasn't able to get IR guided hip steroid shot which was scheduled during last visit. She requested [place] 7.5-325 mg twice daily as needed for pain refill, and was refilled. She was given the phone number for [facility] IR, and was recommended to call the number and get the appointment for the steroid shot. She admitted occasional mild SOB, that is her baseline and occasionally require oxygen 2 L via [place]. She denied any chest pain, fever or chills, nausea or vomit ing, orthopnea or PND. 09/17/2025: Patient presents for F/U visit for her right shoulder pain and left hip pain. She says that she has ran out of her last prescription of 1 month's supply of 60 tablets of PO [place] 7.25/325 q6HR prn for her pain (she states that she takes this BID). On CURES review, patient does not seem to be obtaining duplicate pain medications from any other providers. However, due to concern for possible development of opiate addiction, a prescription was written for 50 tablets of PO [place] 7.25/325 instead of 60 and patient was encouraged to follow up with a pain specialist (referral ordered). Patient also requested a steroid injection for her right shoulder pain but, due to lack of supply at clinic, she did not receive this at this time. 09/29/2025: Patient presents today for follow-up of her right shoulder pain for steroid injection, however unfortunately we are unable to provide her injection today and she will be referred to orthopedic surgeon. Otherwise patient reports no change in her condition. She continues to have pain in her right shoulder which is debilitating, will prescribe her topical treatment and refill her oral pain control medications. Review of Systems Review of Systems Systems Reviewed: All systems reviewed, normal except as documented Objective/Exam Narrative Physical exam: General: Sitting in wheelchair. A/O x3, no acute distress. Skin: Warm, dry, intact, no obvious rash. Head: Normocephalic, atraumatic. Eyes: Anicteric, vision grossly intact. Ears: No ear pain, no ear discharge, Hearing grossly intact. Nose: No nasal discharge. Cardiovascular: Regular rate and rhythm, no murmur, no JVD or carotid bruits. +S1/S2. Respiratory: Bilateral lungs are clear to auscultation, respirations unlabored, no crackles, no wheezing. No accessory muscle use. Gastrointestinal: Soft, nontender, non-distended, no palpable masses. No guarding or rebound tenderness. Peristalsis present. Extremities: Symmetrical, no significant deformities. No edema, no cyanosis, no clubbing. 2+ radial pulse bilaterally, 2+ posterior tibial pulse bilaterally. Neuro: No focal deficits observed. Conversant, moving all extremities. No overt cerebellar signs/incoordination. MSK: Right shoulder pain and left hip pain with movement. Psychiatric: Cooperative, appropriate affect. Assessment & Plan Diagnosis / Problem List (1) Osteoarthritis of left hip: Status: Acute Plan: -Refilled patient's prescription of PO [place] 7.25/325 q6HR prn for pain (50 pills for 1 month) -Referral to pain specialist pending (2) Primary osteoarthritis, right shoulder: Status: Acute Plan: -Patient was unable to receive cortisone shot today for her shoulder due to clinic's lack of supply. -Refilled patient's prescription of PO [place] 7.25/325 q6HR prn for pain (50 pills for 1 month). -Referral to pain specialist pending, referral orthopedic surgeon for intra- articular steroid injection. Plan Plan of care was discussed with Dr. Nguyen. Jerad Marin MD PGY-3. Orders: Referrals Orthopedics Jerad Marin MD Advanced Care Planning Advance care planning discussed with:: patient Office Procedures [facility] Level of Care Nursing/Assessment Patient Status: Established Patient Nursing Assessment/Reassessment: Medication Reconciliation, Update PMH in EMR and Vital Signs Coordination of Care: Complex Care and Chronic Disease 1-5, Complex Care/Chronic Disease 5 or more, Consent,records obtained, informed consent, Lab and Imaging orders, Results/Orders obtained and Staff clarify orders Established Patient Charge Established Patient Point Assignment: 125 Established Patient Point Charge: EP Level 4 (120-155) Injection/Vaccine Admin/Surg Procedure SQ Im Injection: Yes
== END 2025-09-29 15:01 | disposition home or self-care (01) ==
LOC: HODAHC 14:33
PROVIDERS: Supervising Provider Internal Medicine; Visit Provider Student in an Organized Health Care Education/Training Program
DX: M16.12 Unilateral primary osteoarthritis, left hip (principal); M19.011 Primary osteoarthritis, right shoulder
CPT/HCPCS: 96372; 99214; G0463

== ENCOUNTER 2025-11-10 13:26 | Outpatient (AMB) | payer OTHER, MEDICAID, SELFPAY ==
--- NOTE | 2025-11-10 13:37 | PD.RESCLINIC ---
Allergies/Meds Allergies & Medications Allergies Penicillins Allergy (Severe, Verified 11/10/25 13:37) UNKNOWN Sulfa (Sulfonamide Antibiotics) Allergy (Severe, Verified 11/10/25 13:37) Swelling Medication Reconciliation donepezil 10 mg tablet 10 mg PO QPM 09/05/21 [History Confirmed 11/10/25] metoprolol succinate 25 mg tablet,extended release 24 hr 25 mg PO QDAY 02/27/24 [History Confirmed 11/10/25] Held on 07/09/25. Instructions: Resume on 07/16/25. Follow up with Cardiology prior to resuming magnesium oxide 400 mg (241.3 mg magnesium) tablet 400 mg PO QDAY 30 days #30 tabs 04/30/24 [Rx Confirmed 11/10/25] aspirin 81 mg chewable tablet 81 mg PO QDAY #30 tabs 10/26/24 [Rx Confirmed 11/10/25] ticagrelor 90 mg tablet (Brilinta) 90 mg PO BID #60 tabs 10/26/24 [Rx Confirmed 11/10/25] amiodarone 100 mg tablet 100 mg PO DAILY Atrial fibrilation 05/04/25 [History Confirmed 11/10/25] dapagliflozin propanediol 10 mg tablet 10 mg PO QDAY 05/05/25 [History Confirmed 11/10/25] ipratropium 0.5 mg-albuterol 3 mg (2.5 mg base)/3 mL nebulization soln 3 ml inhalation Q4H PRN shortness of breath or wheezing #90 mL 05/06/25 [Rx Confirmed 11/10/25] budesonide 160 mcg-glycopyr 9 mcg-formot 4.8 mcg/actuation HFA inhaler (Breztri Aerosphere) 2 inh inhalation BID #10.7 grams 07/09/25 [Rx Confirmed 11/10/25] hydrocortisone 1 % topical cream 1 applic topical BID PRN itching #28.4 grams 07/09/25 [Rx Confirmed 11/10/25] insulin degludec 100 unit/mL (3 mL) subcutaneous pen 15 unit (0.15 mL) subcut QDAY #15 mL 07/09/25 [Rx Confirmed 11/10/25] pen needle, diabetic 31 gauge x 1/4 (Comfort EZ Pen [place]) #100 ea 07/09/25 [Rx Confirmed 11/10/25] diclofenac sodium 1 % topical gel (Arthritis Pain (diclofenac)) 2 g topical QID right shoulder pain #50 grams 09/29/25 [Rx Confirmed 11/10/25] hydrocodone 7.5 mg-acetaminophen 325 mg tablet 1 tab PO BID PRN pain #50 tabs 11/10/25 [Rx] [place] Intake Visit Data Collection New Patient or Established: Established Patient (seen at [facility] within 3 years) Seen by Clinical Staff ONLY (RN/MA): No Pain Present Currently: Yes Pain Location: Unable to identify Public Speaking Teacher Required: No PCP or OBGYN visit in last 3 months: Yes Hx Now: No Do You Feel Safe at Home: Yes Authorities Contacted: N/A Smoking Status Smoking Status: Former smoker For Televisit only Telemed Video/Phone Visit: Yes Verbal consent obtained for Telemed visit?: Yes Telemed Video/Phone visit w/Clinical Staff: 21-30 min Immunization / Flu Flu Vaccine in the Last 12 Months: No Flu Vaccine Exclusion Criteria: No Exclusion Criteria Past Medical History Past Medical History NEUROLOGIC: Positive Dementia; Negative Neurological Disorders CARDIAC: Positive Cardiac Disorders, Cardiac Arrhythmia, Atrial Fibrillation, Heart Murmur, Coronary Artery Disease, Peripheral Vascular Disease, Hypercholesterolemia, Congestive Heart Failure, Cardiomyopathy, Hypertension and Hypotension RESPIRATORY: Positive Chronic Obstructive Pulmonary Disease (COPD), Asthma, Smoking, Smoking Cessation Counseling and Tobacco Use GASTROINTESTINAL: Negative Gastrointestinal Disorders GENITOURINARY: Negative Genitourinary Disorders or Renal Disease ENDOCRINE: Positive Endocrine Disorders and Diabetes Mellitus Type 2; Negative Diabetes Mellitus Type 1 HEMATOLOGIC: Negative Blood Disorders or Sickle Cell Disease Surgical History SURGICAL: Positive Pacemaker, Ear Surgery, Tonsillectomy and Hysterectomy; Negative Cardiac Surgery, Endocrine Surgery, Abdominal Surgery, Nephrectomy or Neurologic Surgery Social History SMOKING STATUS: Smoking status: Former smoker PACK YEARS: Pack-Years: 65 SECOND HAND EXPOSURE: second hand exposure: No ALCOHOL: Alcohol Intake: Former ALCOHOL FREQUENCY: Alcohol Intake Frequency: holidays/special occasions only HOUSING: Housing: Apartment LIVES WITH: Lives With: Alone Patient Portal Questionaires PHQ-9 PHQ-2 Over the last 2 weeks, how often have you been bothered by any of the following problems? 1. Little interest or pleasure in doing things: not at all PHQ-9 8. Moving or speaking so slowly that other people could have noticed? - Or the opposite - being so fidgety or restless that you have been moving around a lot more than usual: not at all Source: Developed by Drs. Alex Veronica, Brittney Fonseca, Antwon Castaneda and colleagues, with an educational mechelle from [employer]. Social History Living Situation History Housing: Apartment Housing Other:: Pt lives alone Tobacco History Smoking Status: Former smoker Packs per Day: 2 Pack-Years: 65 Second Hand Smoke Exposure: No Alcohol History Alcohol Intake: Former Alcohol Intake Frequency: holidays/special occasions only Substance Use History Substance Use: meth Domestic Abuse History Do You Feel Safe at Home: Yes Review of Systems Report any current symptoms Only answer those that you have currently: Past Medical History Past Medical History Have you ever been diagnosed with any of the following: Neurological Problems Dementia: Yes Cardiology Problems Cardiac Arrhythmia: Yes Atrial Fibrillation: Yes Heart Murmur: Yes Coronary Artery Disease: Yes Peripheral Vascular Disease: Yes Hypercholesterolemia: Yes Congestive Heart Failure: Yes Cardiomyopathy: Yes Hypertension: Yes Hypotension: Yes Respiratory Problems Chronic Obstructive Pulmonary Disease (COPD): Yes Asthma: Yes Smoking: Yes Smoking Cessation Counseling: Yes Tobacco Use: Yes Genital/Urinary Problems Renal Disease: No Endocrine Problems Diabetes Mellitus Type 1: No Diabetes Mellitus Type 2: Yes Blood Problems Sickle Cell Disease: No Surgical History Hysterectomy: Yes Pacemaker: Yes History of Present Illness HPI Narrative Ms. Cordova is a 77-year-old demale with a medical history of osteoarthritis, chronic T4 compression fracture with kyphosis, left fibular fracture (March 2023), primary hypertension, diabetes mellitus type II, hyperlipidemia, 4cm thoracic aortic aneurysm, dilated cardiomyopathy HFrEF 25% s/p defibrillator followed by cardiology Dr. Pitts, & chronic atrial fibrillation on Eliquis, COPD/asthma on home O2 PRN 2/2 chronic tobacco use (>30 yrs), NIDDM2, dementia, chronic tremor, & anxiety/depression. 04/08: Pt is in office for follow up visit for pain management. Since pt's last visit in office in october 2024. Pt has had multiple hospitalizations. Pt was initially hospitalized at [facility] earlier this year due to recent fall causing hip fracture and underwent surgery. Pt also had [place] and states her defibrillator was replaced during her hospitalization at [facility]. Pt was also in rehab post op for weeks. and was recently sent home less than a week ago. Pt has been experiencing a lot joint pain and is requesting a refill of her home [place] 7.5-325 mg for chronic back and shoulder pain secondary to osteoarthritis and chronic compression fracture. Pt is also requesting intra-articular kenalog injection in the right shoulder. she has no other complaints or concerns. 05/13: Pt is in office for follow up visit after hospitalization. pt was hospitalized from 05/04-05/07 for COPD exacerbation secondary to community acquired pneumonia. During hospitalization, pt received breathing treatments, steroids and IV antibiotics. Currently using 2L oxygen all day. Pt was discharged on antibiotics which she is continuing currently. Pt is out of her norco refill, and in office for refill medication. Pt also want referral for IR hip steroid injection which usually gets once or twice a year. she has no other complaints or concerns. 06/14/2025: The patient presented for F/U visit regarding her hip and shoulder pain. She reported her shoulder pain improving after steroid shot but wasn't able to get IR guided hip steroid shot which was scheduled during last visit. She requested [place] 7.5-325 mg twice daily as needed for pain refill, and was refilled. She was given the phone number for [facility] IR, and was recommended to call the number and get the appointment for the steroid shot. She admitted occasional mild SOB, that is her baseline and occasionally require oxygen 2 L via [place]. She denied any chest pain, fever or chills, nausea or vomiting, orthopnea or PND. 09/17/2025: Patient presents for F/U visit for her right shoulder pain and left hip pain. She says that she has ran out of her last prescription of 1 month's supply of 60 tablets of PO [place] 7.25/325 q6HR prn for her pain (she states that she takes this BID). On CURES review, patient does not seem to be obtaining duplicate pain medications from any other providers. However, due to concern for possible development of opiate addiction, a prescription was written for 50 tablets of PO [place] 7.25/325 instead of 60 and patient was encouraged to follow up with a pain specialist (referral ordered). Patient also requested a steroid injection for her right shoulder pain but, due to lack of supply at clinic, she did not receive this at this time. 09/29/2025: Patient presents today for follow-up of her right shoulder pain for steroid injection, however unfortunately we are unable to provide her injection today and she will be referred to orthopedic surgeon. Otherwise patient reports no change in her condition. She continues to have pain in her right shoulder which is debilitating, will prescribe her topical treatment and refill her oral pain control medications. 11/10: Pt is unable to make it to the office and requested phone appointment. Pt has not been able to see ortho for intraarticular joint injection in the shoulder. Pt states she is pending referral for it. But in the mean time pt requested refill for her Norcos. No new complaints. Review of Systems Review of Systems Systems Reviewed: All systems reviewed, normal except as documented Assessment & Plan Diagnosis / Problem List (1) Osteoarthritis of left hip: Status: Acute Plan: -Refilled patient's prescription of PO [place] 7.25/325 q6HR prn for pain (50 pills for 1 month) -Referral to pain specialist and ortho pending (2) Primary osteoarthritis, right shoulder: Status: Acute Plan: -Refilled patient's prescription of PO [place] 7.25/325 q6HR prn for pain (50 pills for 1 month). -Referral to pain specialist pending, referral orthopedic surgeon for intra-articular steroid injection. Advanced Care Planning Advance care planning discussed with:: patient Office Procedures [facility] Level of Care Telehealth Telemed Phone/Video with patient at home & ALVAREZ Garland,SURVEILLANCE OPERATOR: Yes Telemed Phone/Video with patient in Clinic w/JUAN Garland,PA outside Clinic: No
== END 2025-11-10 14:00 | disposition home or self-care (01) ==
LOC: HODAHC 13:26
PROVIDERS: Supervising Provider Internal Medicine
DX: M19.011 Primary osteoarthritis, right shoulder (principal); M16.12 Unilateral primary osteoarthritis, left hip
CPT/HCPCS: 99212; G0463